=== PATIENT | female | born 1955 | race Caucasian/White ===

== ENCOUNTER 2019-12-11 09:01 | Emergency (ER) | payer BC, SELFPAY ==
[2019-12-11 09:17] VITALS: BP 138/77; PULSE 85; RESP 20; TEMP 36.6; O2SAT 98
--- NOTE | 2019-12-11 09:29 | PC.NURSE ---
is unable to give ua spec. at this time. is drinking water.
--- NOTE | 2019-12-11 09:40 | ED.FEMALEGU ---
HPI - Female Genitourinary General Chief complaint: Urogenital-Female Stated complaint: uti Time Seen by Provider: 12/11/19 09:40 Source: patient Mode of arrival: ambulatory Limitations: no limitations History of Present Illness HPI Narrative: Kristy Parsons is a 64 yo female with a PMH of HTN, depression, diabetes, GERD, who comes to express care with symptoms of dysuria- frequency, small amounts, suprapubic pain. Started earlier this week. She is diabetic and is less willing to check blood sugar regularly since she has decided that she wants to be able to enjoy her life last A1c is slightly over 7 but she states that she is comfortable that. Quit smoking 35 years ago only occasionally drinks alcohol. Related Data Home Medications Medication Instructions Recorded Confirmed duloxetine mg PO 12/11/19 losartan-hydrochlorothiazide tablet 12/11/19 metformin mg PO 12/11/19 metoprolol succinate PO 12/11/19 omeprazole 12/11/19 Allergies Allergy/AdvReac Type Severity Reaction Status Date / Time No Known Allergies Allergy Unverified 01/09/13 11:24 Review of Systems Review of Systems: Narrative: CONSTITUTIONAL: Denies fever, chills, sweats. EYES: Denies visual changes, redness, discharge. ENT: Denies rhinorrhea, congestion, sore throat, otalgia. CARDIOVASCULAR: Denies chest pain, palpitations, edema. RESPIRATORY: Denies dyspnea, wheezing, cough GASTROINTESTINAL: Denies abdominal pain, nausea, vomiting, diarrhea. GENITOURINARY: Has dysuria, states possible hematuria, no abnormal discharge SKIN: Denies rash or itching. NEUROLOGIC: Denies numbness, or focal weakness. PSYCHIATRIC: Denies anxiety or depression. [facility] Family History Family History Father Carcinoma of colon Family history of diabetes mellitus in first degree relative Family history of heart disease in male family member before age 55 Mother Carcinoma of colon Family history of heart disease in male family member before age 55 Sibling Carcinoma of colon Other Cerebrovascular accident Diabetes mellitus Family history of cardiovascular disease Family history of hemochromatosis Hypertension Social History Social History (Updated 12/11/19 @ 09:42 by Iveth Rocha CNP) Smoking status: Former smoker Alcohol intake: current Comments At time of signature, I agree with nursing past medical, surgical, social and family history. There is no relevant family history pertinent to the presenting complaint. Exam Narrative: Exam Narrative: GENERAL: This is a well-nourished, well-developed patient, in mild distress. HEAD: normocephalic, atraumatic. EYES: Sclera clear/white. Vision is grossly intact. EARS: External ears normal, Hearing grossly intact. NOSE: External nose normal without nasal discharge, nares without redness, no rhinorrhea. THROAT: Mucous membranes moist, NECK: Neck supple, non-tender CARDIOVASCULAR: Regular rate and rhythm without murmurs, gallops, or rubs. RESPIRATORY: Clear to auscultation. Breath sounds equal bilaterally. No wheezes, rales, or rhonchi. GASTROINTESTINAL: Abdomen soft, ,mild suprapubic pain SKIN: warm, intact with no suspicious lesions or rash, good texture and turgor. NEURO: awake, alert, and oriented to person, place and time. There were no obvious focal neurologic abnormalities. Steady gait EXTREMITIES: Normal range of motion. BACK: Nontender without deformity Course Course Emergency Course: UA-positive for leukocyte esterase and nitrites-started on Keflex 500 mg twice daily x5 days Discussed blood sugar control and symptoms of dysuria encouraged her to increase water intake and monitor blood pressure blood sugar Follow-up with PCP Vital Signs Vital signs: Vital Signs Temperature 97.8 F 12/11/19 09:17 Pulse Rate 85 12/11/19 09:17 Respiratory Rate 20 12/11/19 09:17 Blood Pressure 138/77 12/11/19 09:17 Pulse Oximetry 98
== END 2019-12-11 10:08 | disposition home or self-care (01) ==
PROVIDERS: Emergency Provider Nurse Practitioner; PCP Family Medicine
DX: N30.01 Acute cystitis with hematuria (principal); I10 Essential (primary) hypertension; E11.9 Type 2 diabetes mellitus without complications; K21.9 Gastro-esophageal reflux disease without esophagitis; Z79.84 Long term (current) use of oral hypoglycemic drugs; Z87.891 Personal history of nicotine dependence
CPT/HCPCS: 81003; 87077; 87086; 87088; 87186; 99213; G0463; J1100

== ENCOUNTER 2024-09-24 00:43 | Day surgery (SDC) | payer MEDICARE, SELFPAY ==
[2024-09-22 12:50] VITALS: BMI 34.3
--- OUTSIDE RECORDS SUMMARY | 2024-09-24 00:45 | XMS_ITS | Clinical Summary ---
Author Organization [facility] Address [facility] [place] [address] Care Team Providers Care Station Manager Name Role Phone Kalpesh Larson MD Primary Care Provider [phone] Allergies No known active allergies Medications omeprazole (PRILOSEC) 20 MG capsule Take 20 mg by mouth daily. Active valACYclovir (VALTREX) 1 g tablet Take 1 tablet by mouth as needed. Active metoprolol succinate ER (TOPROL-XL) 50 MG 24 hr tablet Take 1 tablet by mouth daily. Active metFORMIN ER, MOD, (GLUMETZA) 1000 MG 24 hr tablet Take 1,000 mg by mouth daily. Active losartan-hydroC HLOROthiazide (HYZAAR) 50-12.5 MG tablet Take 1 tablet by mouth daily. Active DULoxetine (CYMBALTA) 60 MG capsule Take 60 mg by mouth daily. Active butalbital-acet aminophen-caffe ine (ESGIC) 50-325-40 MG tablet Take 1 tablet by mouth as needed. Active HYDROcodone-steffen taminophen (NORCO) 5-325 MG tabletIndicatio ns:Chronic Pain Take 1 tablet by mouth every 6 (six) hours as needed. Indications: Chronic Pain 30 tablet 04/13/2022 Active Encounters Date Type Department Care Team Description 08/13/2024 9:28 AM SENIOR MAJOR GIFTS OFFICER - 08/13/2024 11:59 PM SENIOR MAJOR GIFTS OFFICER Hospital Encounter [facility] [place] [address] Miroslava Larson MD Discharge Disposition: Home or Self Care (Routine Discharge) 08/13/2024 Travel from Last 3 Months Family History Medical History Relation Comments No Known Problems Father Cancer Mother colon Hypertension Mother Cancer Sister colon Relation Status Comments Father Mother Sister Social History Tobacco Use Types Packs/Day Years Used Date Smoking Tobacco: Former Cigarettes Q uit: 1985 Smokeless Tobacco: Never Alcohol Use Standard Drinks/Week Comments Yes 0 (1 standard drink = 0.6 oz pur e alcohol) 1-2 per year Comments No Sex and Gender Information Value Date Recorded Sex Assigned at Female 08/13/2024 9:26 AM SENIOR MAJOR GIFTS OFFICER Legal Sex Female 9:58 PM CDT Gender Identity Not on file Sexual Orientation Not on file Last Filed Vital Signs Vital Sign Reading Time Taken Comments Blood Pressure 142/82 04/13/2022 10:30 AM CDT Pulse 105 04/13/2022 10:30 AM CDT Temperature 36.6 C (97.9 F) 04/13/2022 10:30 AM CDT Respiratory Rate 16 04/13/2022 10:30 AM CDT Oxygen Saturation 96% 04/13/2022 10:30 AM CDT Inhaled Oxygen Concentration - - Weight 90.8 kg (200 lb 2.8 oz) 04/13/2022 6:15 A M CDT Height 165.1 cm (5' 5 ) 04/13/2022 6:15 AM CDT Body Mass Index 33.31 04/13/2022 6:15 AM CDT Plan of Treatment Health Maintenance Due Date Last Done Comments Colorectal Cancer Screening Colonoscopy (10 Years) 1957 Hepatitis C 1975 DTaP, Tdap and Td Vaccines (1 - Tdap) 1976 Zoster Vaccines (1 of 2) 2007 Annual Medicare Wellness Visit 2022 COVID-19 Vaccine (3 - season) 2024 09/30/2020, 09/09/2020 Mammogram Screening 08/13/2026 08/13/2024, 07/23/2023, 06/06/2023, Additional history exists RSV Immunization or 60+ Years (1 - 1-dose 75+ series) 2032 Pneumococcal Vaccine: 65+ Years Completed 03/19/2024 Dexa Scan (General) Completed 08/13/2024 Meningococcal B Vaccine Aged Out No l onger eligible based on patient's age to complete this topic Meningococcal Vaccine Aged Out No gael tita eligible based on patient's age to complete this topic RSV Immunizations Under 20 Months Aged Out No longer eligible based on patient's age to complete this topic Procedures Procedure Name Priority Date/Time Associated Diagnosis Comments BONE DENSITY/DEXA Routine 08/13/2024 10: 16 AM SENIOR MAJOR G[employer]TS OFFICER Asymptomatic menopausal state MG SCREENING W RYAN LESLIE DIGI Routine 08/13/2024 10:14 AM SENIOR MAJOR GIFTS OFFICER Encounter for screening mammogram for malignant neoplasm of breast from Last 3 Months Results * BONE DENSITY/DEXA (08/13/2024 10:16 AM SENIOR MAJOR GIFTS OFFICER) Anatomical Region Laterality Modality Bone Mammography 08/13/2024 10:2 5 AM SENIOR MAJOR GIFTS OFFICER Impressions 08/13/2024 10:25 AM SENIOR MAJOR GIFTS OFFICER IMPRESSION: WHO Classification: Normal. RECOMMENDATIONS: All patients should ensure an adequate intake of dietary calcium and vitamin D. The NOF recommend adults under the age of 50 need 1000 mg of calcium and 400-800 IU of vitamin D daily. Effective therapy for the prevention and treatment of osteoporosis include bisphosphonates. FOLLOW-UP: People with diagnosed cases of osteoporosis or at high risk for fracture should have regular bone mineral density test. For patients eligible for Medicare, routine testing is allowed once every 2 years. Testing frequency can be increased to one year for patients who have rapidly progressing disease, those who are receiving or discontinuing medical therapy to restore bone mass, or have additional risk factors. Ordered By: MIROSLAVA LARSON Interpreted By: Ammon Brewer, 08/13/2024 10:25 AM Narrative 08/13/2024 10:25 AM SENIOR MAJOR GIFTS OFFICER [facility] [address] [place] [address] EXAMINATION: BONE DENSITY/DEXA INDICATIONS: Asymptomatic menopausal state COMPARISON: None TECHNIQUE: DEXA bone mineral density evaluation was performed in the AP projection over the lumbar spine and both hips utilizing standard imaging techniques. FINDINGS: The BMD measured at the AP spine L1-L4 is 1.099 g/cm? with a T-score of 0.5. The BMD measured at the left femoral neck is 0.748 g/cm? with a T-score of -0.9. The BMD measured at the left hip is 1.053 g/cm? with a T-score of 0.9. The BMD measured at the right femoral neck is 0.772 g/cm? with a T-score of - 0.7. The BMD measured at the right hip is 0.006 g/cm? with a T-score of 0.5. FRAX 10-year fracture risk: Major Osteoporotic Fracture: 7.7% Hip Fracture: 0.6% Procedure Note Ammon Brewer MD - 08/13/2024 [facility] [address] [place] [address] EXAMINATION: BONE DENSITY/DEXA INDICATIONS: Asymptomatic menopausal state COMPARISON: None TECHNIQUE: DEXA bone mineral density evaluation was performed in the APprojection over the lumbar spine and both hips utilizing standard imagingtechniques. FINDINGS: The BMD measured at the AP spine L1-L4 is 1.099 g/cm? with a T-score of0.5. The BMD measured at the left femoral neck is 0.748 g/cm? with a T-score of-0.9. The BMD measured at the left hip is 1.053 g/cm? with a T-score of 0.9. The BMD measured at the right femoral neck is 0.772 g/cm? with a T-scoreof -0.7. The BMD measured at the right hip is 0.006 g/cm? with a T-score of 0.5. FRAX 10-year fracture risk: Major Osteoporotic Fracture: 7.7% Hip Fracture: 0.6% IMPRESSION: WHO Classification: Normal. RECOMMENDATIONS: All patients should ensure an adequate intake of dietary calcium andvitamin D. The NOF recommend adults under the age of 50 need 1000 mg ofcalcium and 400-800 IU of vitamin D daily. Effective therapy for theprevention and treatment of osteoporosis include bisphosphonates. FOLLOW-UP: People with diagnosed cases of osteoporosis or at high risk for fractureshould have regular bone mineral density test. For patients eligible forMedicare, routine testing is allowed once every 2 years. Testing frequencycan be increased to one year for patients who have rapidly progressingdisease, those who are receiving or discontinuing medical therapy torestore bone mass, or have additional risk factors. Ordered By: MIROSLAVA LARSON Interpreted By: Ammon Brewer, 08/13/2024 10:25 AM us Miroslava Larson MD DEXA Final Res ult * MG SCREENING W RYAN LESLIE DIGI (08/13/2024 10:14 AM SENIOR MAJOR GIFTS OFFICER) Anatomical Region Laterality Modality Breast Bilateral Mammography 08/13/2024 10:2 6 AM SENIOR MAJOR GIFTS OFFICER Impressions 08/13/2024 10:27 AM SENIOR MAJOR GIFTS OFFICER ===== IMPRESSION: ===== 1. Stable mammographic appearance with no new findings to suggest malignancy in either breast. Assessment: ACR BI-RADS 2 - BENIGN FINDING(S) Recommendation: 1:Routine Screening Bilateral Comments: Ordered By: MIROSLAVA LARSON Interpreted By: Keith Santos MD, 08/13/2024 10:26 AM Narrative 08/13/2024 10:27 AM SENIOR MAJOR GIFTS OFFICER [facility] [address] [place] [address] Examination: Digital bilateral screening mammogram with 3D Tomosynthesis Exam Date/Time: 08/13/2024 9:37 AM Reason For Exam: Screening No prior breast procedures. No personal or family history of breast cancer. No current complaints. Comparison: Mammograms from 07/23/2023 06/06/2023 10/23/2012 Technique: Digital screening mammography of both breasts was performed in addition to 3-D Tomosynthesis technique. This study was read with the assistance of a computer-aided detection system. Tissue density: There are scattered areas of fibroglandular density. Findings: Benign round and punctate calcifications again seen. No suspicious interval change in parenchymal pattern from the prior studies. There is no new focal asymmetry, dominant mass lesion, area of skin thickening, or cluster of suspicious appearing calcifications in either breast to suggest malignancy. us Miroslava Larson MD MAMMO Final Res ult from Last 3 Months Insurance [employer] Care Teams Station Manager Relationship Specialty Start Date End Date Kalpseh Larson MD [facility] [facility] [address] [place] [id number] PCP - General FAMILY PRACTICE 08/13/24
--- OUTSIDE RECORDS SUMMARY | 2024-09-24 00:45 | XMS_ITS | Referral Summary ---
Author Organization [facility] Building Address [address] [place] [phone] Care Team Providers Care Lens Inserter Name Role Phone Seth Land MD Primary Care Provider [phone] Encounters Date Type Department Care Team Description 08/27/2024 ACO Clinical Pharmacist [facility] Accountable Care Organization [address] [place] [id number] Annie Landon sandee 07/09/2024 Telephone [facility] Family Medicine at [address] [place] [phone] Seth Land MD Medical Question/Miscellane ous 07/02/2024 Telephone [facility] Family Medicine at [address] [place] [phone] Seth Land MD 1st no show letter sent 07/02/24 07/01/2024 2:15 PM BUNDLE HELPER Office Visit [facility] Medicine [address] [place] [phone] Kalpesh Choudhary MD Chronic pain of left knee (Primary Dx); Chronic pain of right knee from Last 3 Months Allergies Active Allergy Reactions Criticality Noted Date Comments Nickel Itching Low 12/24/2018 Medications losartan-hydroCHL OROthiazide (HYZAAR) 50-12.5 mg per tablet Take 1 tablet by mouth daily Active butalbital-acetam inophen-caffeine (ESGIC) 50-325-40 mg per tablet butalbital-steffen taminophen-caf feine 50 mg-325 mg-40 mg tablet 1-2 tabs po Q6 hours as needed Active metoprolol XL (TOPROL-XL) 50 mg 24 hr tablet metoprolol succinate ER 50 mg tablet,extende d release 24 hr Active empagliflozin (JARDIANCE) 25 mg tabletIndications :Uncontrolled type 2 diabetes mellitus with hypoglycemia without coma (HCC) Take 1 tablet (25 mg total) by mouth daily 90 tablet [address] (CYMBALTA) 60 mg capsuleIndication s:Moderate episode of recurrent major depressive disorder (HCC) Take 1 capsule (60 mg total) by mouth daily 90 capsule 4 Active ALPRAZolam (XANAX) 0.5 mg tabletIndications :Moderate episode of recurrent major depressive disorder (HCC) Take 1 tablet (0.5 mg total) by mouth nightly as needed for anxiety 30 tablet 4 Active simvastatin (ZOCOR) 20 mg tabletIndications :Dyslipidemia Take 1 tablet (20 mg total) by mouth nightly 90 tablet 3 4 03/19/20 25 Active glyBURIDE (DIABETA) 5 mg tabletIndications :Uncontrolled type 2 diabetes mellitus with hypoglycemia without coma (HCC) Take 2 tablets (10 mg total) by mouth daily with breakfast 2 tablets daily 180 tablet 1 4 Active omeprazole (PriLOSEC) 20 mg capsule Take 1 capsule (20 mg total) by mouth daily 90 capsule 1 4 Active calcium carbonate (CALCIUM 600 ORAL) Take by mouth Active Bifidobacterium infantis (ALIGN) 4 mg capsule 1 capsule (4 mg total) Active magnesium oxide 400 mg magnesium capsule Take by mouth Active potassium gluconate 600 mg (99 mg) tablet Take by mouth A ctive cinnamon bark (CINNAMON ORAL) Take by mouth Active SITagliptin phosphate (JANUVIA) 100 mg tabletIndications :type 2 diabetes mellitus Take 1 tablet (100 mg total) by mouth daily Active meloxicam (MOBIC) 15 mg tabletIndications :Chronic pain of right knee Take 1 tablet (15 mg total) by mouth daily 30 tablet 3 4 Active Active Problems Problem Noted Date Diagnosed Date Medicare annual wellness visit, subsequent 03/19 Assessment & Plan (03/19/2024 5:30 PM CDT): Patient here for annual Medicare wellness visit and for review of complete medical problem list. All the elements of the plan were completed as outlined by CMS. A copy of the prevention plan was given to the patient. I reviewed Medicare Wellness Questionnaire (other physicians involved in care, depression screen, advanced directives), cognitive/memory, and functional assessment. Forms scanned in progress notes. I reviewed and updated the complete problem list, medication list, family history, and immunization records with the patient. I provided preventive counseling and early detection interventions to the patient through health maintenance update and summary of today's office visit. Personalized Prevention Plan Services (PPPS): Opioid Use: No Immunization: [id number]: Not Applicable. [id number]: Not Applicable. PCV20: UTD - Done on 03/19/24 Influenza: Highly Recommended HepatitisB: Not Applicable. Tetanus: Highly Recommended Shingles: Highly Recommended RSV: Highly Recommended Cancer Screening: Mammogram: Not Applicable. PAP Smear: Not Applicable. Prostate Cancer Screening: Not Applicable. Colorectal Cancer Screening: UTD - Done on 2022 at [facility] Lung Cancer Screening: Not Applicable. Others: Diet: Lifestyle education regarding diet discussed. Exercise: Encouraged regular daily exercise. Medication Use: Aspirin use discussion. DEXA Scan: Not Applicable. Glaucoma Screening: Recommended Annually. Audio Screen ordered? No Diabetes: Not Applicable. Annual Labs: Ordered For Today. Abdominal Aortic Aneurysm Screening: Not Applicable. HIV Screening: Not Applicable. Smoking cessation Counselling: Not Applicable. 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 Follow up in 1 or 3 months for continuing Lifestyle Medicine education and management visit. Recommend Lifestyle/Nutrition/Weight Loss Seminar on every other Tuesdays @ 5pm. Adhesive capsulitis of right shoulder 03/19/2024 Overview (03/19/2024): Chronic Uncontrolled. Recommend PT-pt refused. COnsider ORtho for Injection Primary osteoarthritis of left knee 10/21/2019 Anxiety 08/26/2019 Arthritis 08/26/2019 Depressive disorder 08/26/2019 Disorder of bursae of shoulder region 08/26/2019 Essential hypertension 08/26/2019 Gastroesophageal reflux disease 08/26/2019 Headache 08/26/2019 Repetitive strain injury 08/26/2019 Thumb pain 08/26/2019 Uncontrolled type 2 diabetes mellitus with hyper glycemia 08/26/2019 Assessment & Plan (03/19/2024 5:34 PM CDT): Chronic. Current Medications: Jardiance and Glyburide. Uncontrolled due to refusal of Treatments. Patient can't tolerate metformin due GI Side effects. Patient refused to take insulin at any concerns. Januvia was too expensive, patient's insurance doesn't cover. Patient's insurance doesn't cover ozempic either. Patient doesn't want to change her diet. Recommend blood work as ordered. Will assess treatment option in future. Recommend Global Logistics Manager. Wax in ear 08/26/2019 Chronic pain of both knees 12/17/2018 Resolved Problems Problem Noted Date Diagnosed Date Resolved Date Diabetes mellitus 08/26/2019 03/19/2024 Immunizations Immunization Administration Dates Next Due Influenza, Quad, Adjuvantate d, Intramuscular 04/17/2023 Influenza, Quadrivalent, Bonnie l Culture-based MDCK, Preservative Free, Antibiotic Free, Intramuscular 03/21/2020 Influenza, Quadrivalent, Hig h Dose, Preservative Free, Intrr 05/03/2022 Influenza, Quadrivalent, Spl it, Preservative Free, Intramuscular 03/23/2021 Influenza, Unspecified 03/19/2024(Deferred: Dominique ent Refused) Pneumococcal Conjugate Pcv20 03/19/2024 Social History Tobacco Use Types Packs/Day Years Used Date Smoking Tobacco: Former Smokeless Tobacco: Never Alcohol Use Standard Drinks/Week Comments Yes 0 (1 standard drink = 0.6 oz pur e alcohol) AUDIT-C Answer Date Recorded Q1: How often do you have a drink containing alc ohol? Monthly or less 03/19/2024 Q2: How many drinks containi ng alcohol do you have on a typical day when you are drinking? 1 or 2 03/19/2024 Q3: How often do you have si x or more drinks on one occasion? 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 file Not on file Not on f ile Last Filed Vital Signs Vital Sign Reading Time Taken Comments Blood Pressure 116/70 03/19/2024 9:03 AM CDT Pulse 66 03/19/2024 9:03 AM CDT Temperature 36.6 C (97.9 F) 11/25/2012 5:06 AM CDT Respiratory Rate 16 03/19/2024 9:03 AM CDT Oxygen Saturation 96% 03/19/2024 9:03 AM CDT Inhaled Oxygen Concentration - - Weight 87.1 kg (192 lb) 07/01/2024 2:08 PM BUNDLE HELPER Height 165.1 cm (5' 5 ) 07/01/2024 2:08 PM BUNDLE HELPER Body Mass Index 31.95 07/01/2024 2:08 PM BUNDLE HELPER Plan of Treatment Not on file Procedures Procedure Name Priority Date/Time Associated Diagnosis Comments ALBUMIN CREATININE RATIO, URINE Routine 03/23/2024 9:09 AM CDT Uncontrolled type 2 diabetes mellitus with hypoglycemia without coma (HCC) HEPATITIS C ANTIBODY Routine 03/23/2024 8:57 AM CDT Need for hepatitis C screening test EGFR Routine 03/23/2024 8:57 AM CDT Uncontrolled type 2 diabetes mellitus with hypoglycemia without coma (HCC) HEMOGLOBIN A1C Routine 03/23/2024 8:57 AM CDT Uncontrolled type 2 diabetes mellitus with hypoglycemia without coma (HCC) LIPID PANEL Routine 03/23/2024 8:57 AM CDT Medicare annual wellness visit, subsequent from Last 3 Months or Most Recently Relevant to Health Maintenance Results * Albumin Creatinine Ratio, Urine (03/23/2024 9:09 AM CDT) Albumin Ur <12.0 mg/L Comment: Interpretive Data No reference range established. Current interpretive data was last revised 2018. Creatinine Ur 58.3 mg/dL [facility] Comment: Interpretive Data No reference range established. Current interpretive data was last revised 2018. Albumin Creatinine Ratio, Ur <21 1 - 29 mg/g [facility] Urine 03/23/2024 9:09 AM CDT 03/23/2024 12:47 PM CDT us Seth Land MD LAB URINE ORDERABLES Final Resul t [facility] [address] [facility] Department [place] [address] * eGFR (03/23/2024 8:57 AM CDT) eGFR >90 >=60 mL/min/1. 73 m2 Comment: Interpretive Data Reference Interval Normal >/= 90 mL/min/1.73m2 Mildly decreased* 60 - 89 mL/min/1.73m2 Mildly to moderately decreased 45 - 59 mL/min/1.73m2 Moderately to severely decreased 30 - 44 mL/min/1.73m2 Severely decreased 15 - 29 mL/min/1.73m2 Kidney Failure < 15 mL/min/1.73m2 *Relative to young adult level Estimated glomerular filtration rate is determined by the 2020 CKD-EPI equation recommended by the National Kidney Foundation (A Unifying Approach to GFR Estimation: Recommendations of the NKF-ASK Task Force on Reassessing the Inclusion of Race in Diagnosing Kidney Disease, JASN 2020). The CKD-EPI equation should not be used for patients with unstable renal function and has not been validated in children and those over 70. Current interpretive data was last reviewed 2021. Blood 03/23/2024 8:57 AM CDT 03/23/2024 12:52 PM CDT Seth Land MD LAB BLOOD ORDERABLES Final Resul t Performing Organization Address City/[facility] Co de Phone Number [id number] [address] * Hepatitis C antibody Blood (03/23/2024 8:57 AM CDT) Pathologist [facility] Hep C Ab Nonreactive Nonreactive Comment: Antibodies to HCV not detected. Does NOT exclude the possibility of recent exposure to HCV. Current interpretive data was last revised on 22 Interpretive Data Nonreactive: Antibodies to HCV not detected. Does NOT exclude the possibility of recent exposure to HCV. Equivocal: Equivocal for HCV antibodies. Supplemental molecular testing will be automatically performed to determine infection status in accordance with current CDC screening recommendations. Reactive: Positive for HCV antibodies. This may represent current or past HCV infection. Supplemental molecular testing will be automatically performed to determine current infection status in accordance with current CDC screening recommendations. Interpretive data was last revised on 2019. Blood 03/23/2024 8:57 AM CDT 03/23/2024 12:52 PM CDT Seth Land MD LAB MICROBIOLOGY - GENERAL ORDER HANS Final Result Performing Organization Address [facility] de Phone Number [id number] [address] * (ABNORMAL) Hemoglobin A1c (03/23/2024 8:57 AM CDT) [facility] Hgb A1C 11.9(H) 4.0 - 5.6 % Estimated Average Glucose 295 mg/dL [facility] Comment: The ADA recommends reporting an estimated Average Glucose (eAG) with all Hemoglobin A1c results using the equation derived from a study of 507 normal and diabetic adults. Minority populations were underrepresented and children were not included. (Diabetes Care 31:0926-0383, 2008). The eAG is not equivalent to a fasting glucose. Blood 03/23/2024 8:57 AM CDT 03/23/2024 12:49 PM CDT us Seth Land MD LAB BLOOD ORDERABLES Final Resul t [facility] [address] [facility] Department [place] [address] * (ABNORMAL) Lipid panel (03/23/2024 8:57 AM CDT) Cholesterol 196 30 - 199 mg/dL Comment: Interpretive Data Ages < or = 19 years Acceptable: <170 mg/dL Borderline high: 170-199 mg/dL High: >or= 200 mg/dL Ages > or = 20 years Desirable: <200 mg/dL Borderline high: 200-239 mg/dL High: >or= 240 mg/dL Literature References: 1. Expert Panel on Integrated Guidelines for Cardiovascular Health and Risk Reduction in Children and Adolescents. Pediatrics 2011;128:S213 2. NCEP Expert Panel. Circulation 2004;110:227 Current Interpretive Data was last revised on 2018. Triglycerides 173(H) <=149 mg/dL [facility] Comment: Interpretive Data Ages < or = 9 years Acceptable: <75 mg/dL Borderline high: 75-99 mg/dL High: >or= 100 mg/dL Ages 10 to 20 years Acceptable: <90 mg/dL Borderline high: 90-129 mg/dL High: >or= 130 mg/dL Ages > or = 20 years Desirable: <150 mg/dL Borderline high: 150-199 mg/dL High: 200-499 mg/dL Very high: >or= 499 mg/dL Literature References: 1. Expert Panel on Integrated Guidelines for Cardiovascular Health and Risk Reduction in Children and Adolescents. Pediatrics 2011;128:S213 2. NCEP Expert Panel. Circulation 2004;110:227 Current Interpretive Data was last revised on 2018. HDL 39(L) >=40 mg/dL [facility] Comment: Interpretive Data Ages < or = 19 years Acceptable: >45 mg/dL Borderline low: 40-45 mg/dL Low: <40 mg/dL Ages > or = 20 years Desirable: >or= 60 mg/dL Low: <40 mg/dL Literature References: 1. Expert Panel on Integrated Guidelines for Cardiovascular Health and Risk Reduction in Children and Adolescents. Pediatrics 2011;128:S213 2. NCEP Expert Panel. Circulation 2004;110:227 Current Interpretive Data was last revised on 2018. LDL, calculated 126 <=129 mg/dL [facility] Comment: Interpretive Data Ages < or = 19 years Acceptable: <110 mg/dL Borderline high: 110-129 mg/dL High: >or= 130 mg/dL Ages > or = 20 years Optimal: <100 mg/dL Near optimal: 100-129 mg/dL Borderline high: 130-159 mg/dL High: >160 mg/dL Calculated using the Cristobal LDL-C estimating equation. This equation was implemented on 2024. Prior to this date LDL-C was estimated using the Friedewald equation. Literature References: 1. Expert Panel on Integrated Guidelines for Cardiovascular Health and Risk Reduction in Children and Adolescents. Pediatrics 2011;128:S213 2. NCEP Expert Panel. Circulation 2004;110:227 3. Cristobal Thompson et al. ROLAND Cardiol. 2019October 15;5(5):540-548. doi: 10.1001/[email or web address] Current Interpretive Data was last revised on 2024. Non-HDL Cholesterol 157 mg/dL [facility] Comment: Interpretive Data Ages < or = 19 years Acceptable: <120 mg/dL Borderline high: 120-144 mg/dL High: >145 mg/dL Ages > or = 20 years When triglycerides are >200 mg/dL, Non-HDL cholesterol is a secondary target of therapy with treatment goals that are 30 mg/dL greater than the LDL cholesterol target. Literature References: 1. Expert Panel on Integrated Guidelines for Cardiovascular Health and Risk Reduction in Children and Adolescents. Pediatrics 2011;128:S213 2. NCEP Expert Panel. Circulation 2004;110:227 Current Interpretive Data was last revised on 2018. Chol/HDL ratio 5 [facility] Blood 03/23/2024 8:57 AM CDT 03/23/2024 12:52 PM CDT us Seth Land MD LAB BLOOD ORDERABLES Final Resul t [facility] [address] [facility] Department [place] [address] from Last 3 Months or Most Recently Relevant to Health Maintenance Insurance [employer] CHO[employer] MEDICARE PPO Advance Directives For more information, please contact: [phone] Documents on File Type Date Recorded Patient Asbestos Abatement Technician Expl anation ADVANCE DIRECTIVE 12/22/2012 12:00 AM POWER OF PIPE RACKER FINANCIAL/MEDICAL Care Teams Lens Inserter Relationship Specialty Start Date End Date Seth Land MD [address] [facility] [place] [id number] PCP - General Family Medicine 03/19/24
--- OUTSIDE RECORDS SUMMARY | 2024-09-24 00:45 | XMS_ITS | Clinical Summary ---
Author Organization [facility] Address [address] [place] [phone] Care Team Providers Care Curtain Framer Name Role Phone Seth Land MD Primary Care Provider [phone] Allergies Active Allergy Reactions Criticality Noted Date [...] Plan Services (PPPS): Opioid Use: No Immunization: [id number]: Not Applicable. [id number]: Not Applicable. PCV20: UTD - Done on [...] Will assess treatment option in future. Recommend Supervisor Lathing. Wax in ear 08/26/2019 Chronic pain of both knees 12/17/2018 Resolved Problems Problem Noted Date Diagnosed Date Resolved Date Diabetes mellitus 08/26/2019 03/19/2024 Encounters Date Type Department Care Team Description 08/27/2024 ACO Clinical Pharmacist [facility] Accountable Care Organization [address] [place] [id number] Annie Landon RPh 07/09/2024 Telephone [facility] Family Medicine at [address] [place] [address] Seth Land MD Medical Question/Miscellane ous 07/02/2024 Telephone [facility] Family Medicine at [address] [place] [address] Seth Land MD 1st no show letter sent 07/02/24 07/01/2024 2:15 PM MACHINE CLOTHING MAN Office Visit [facility] Medical [facility] [address] [place] [address] [address] [place] [address] Kalpesh Choudhary MD Chronic pain of left knee (Primary Dx); Chronic pain of right knee from Last 3 Months Immunizations Immunization Administration Dates Next Due Influenza, Quad, Adjuvantate d, Intramuscular 04/17/2023 Influenza, Quadrivalent, Bonnie l Culture-based MDCK, Preservative Free, Antibiotic Free, Intramuscular 03/21/2020 Influenza, Quadrivalent, Hig h Dose, Preservative Free, Intrr 05/03/2022 Influenza, Quadrivalent, Spl it, Preservative Free, Intramuscular 03/23/2021 Influenza, Unspecified 03/19/2024(Deferred: Dominique ent Refused) Pneumococcal Conjugate Pcv20 03/19/2024 Surgical History Surgery Date Site/Laterality Comments CARPAL TUNNEL RELEASE HEEL SPUR SURGERY SECTION TUBAL LIGATION Medical History Medical History Date Comments Diabetes mellitus (HCC) Peripheral neuropathy Depression Gastric reflux Hypertension Migraines Peptic ulceration Family History Medical History Relation Name Comments Heart disease Father Arthritis Mother Cancer Mother Deep vein thrombosis Mother Stroke Mother Relation Name Status Comments Father Mother Social History Tobacco Use Types Packs/Day Years [...] on file Legal Sex Female 8:34 PM MACHINE CLOTHING MAN Gender Identity Not on file Sexual Orientation Not on file 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 on file Not on f ile Obstetrics History Last Filed Vital Signs Vital Sign Reading Time Taken Comments Blood Pressure 116/70 03/19/2024 9:03 AM CDT Pulse 66 03/19/2024 9:03 AM CDT Temperature 36.6 C (97.9 F) 11/25/2012 5:06 AM CDT Respiratory Rate 16 03/19/2024 9:03 AM CDT Oxygen Saturation 96% 03/19/2024 9:03 AM CDT Inhaled Oxygen Concentration - - Weight 87.1 kg (192 lb) 07/01/2024 2:08 PM MACHINE CLOTHING MAN Height 165.1 cm (5' 5 ) 07/01/2024 2:08 PM MACHINE CLOTHING MAN Body Mass Index 31.95 07/01/2024 2:08 PM MACHINE CLOTHING MAN Plan of Treatment Health Maintenance Due Date Last Done Comments Colon Cancer Screening-Colonoscopy 1957 Osteoporosis Screening-Bone Density Scan 1957 Dilated Eye Exam 1957 Foot Exam 1957 DTaP/Tdap/Td Vaccine (1 - Tdap) 1968 Hepatitis B Screening 1975 Zoster Vaccine (1 of 2) 2007 Covid-19 Vaccine (3 - 2023-2 5 season) 2024 09/30/2020, 09/09/2020 Breast Cancer Screening-Mammogram 06/06/2024 06/06/2023, 10/23/2012, 11/26/2011 Hemoglobin A1C 09/21/2024 03/23/2024 Influenza Vaccine (Season Ended) 2025 04/17/2023, 05/03/2022, 03/23/2021, Additional history exists Depression Screening 03/19/2025 03/19/2024 Fall Risk Assessment 03/19/2025 03/19/2024 Well Visit 65+ 03/19/2025 03/19/2024 Albumin Creatinine Ratio, Urine 03/23/2025 Lipid Panel 03/23/2025 03/23/2024, 11/20/2012 eGFR 03/23/2025 03/23/2024 Pneumococcal vaccine 65+ Completed 03/19/2024 Hepatitis C Screening Completed 03/23/2024 Procedures Procedure Name Priority Date/Time Associated Diagnosis [...] revised 2018. Creatinine Ur 58.3 mg/dL BIANKA Comment: Interpretive Data No reference range established. Current interpretive data was last revised 2018. Albumin Creatinine Ratio, Ur <21 1 - 29 mg/g [facility] Urine 03/23/2024 9:09 AM CDT 03/23/2024 12:47 PM CDT Seth Land MD LAB URINE ORDERABLES Final Resul t Performing Organization Address City/[facility] Co de Phone Number BIANKA [address] [place] [address] * eGFR (03/23/2024 8:57 AM CDT) eGFR [...] ORDERABLES Final Resul t Performing Organization Address City/[facility]/ZIP Co de Phone Number [id number] [place] [address] * Hepatitis C antibody Blood (03/23/2024 8:57 AM CDT) Pathologist [facility] Hep C Ab Nonreactive Nonreactive Comment: Antibodies [...] ORDER HANS Final Result Performing Organization Address [facility] de Phone Number [facility] [address] [facility] [place], [place] [id number] * (ABNORMAL) Hemoglobin A1c (03/23/2024 8:57 AM CDT) Hgb A1C 11.9(H) 4.0 - 5.6 % Estimated Average Glucose 295 mg/dL BIANK[facility] Comment: The ADA recommends reporting an estimated Average Glucose (eAG) with all Hemoglobin A1c results using the equation derived from a study of 507 normal and diabetic adults. Minority populations were underrepresented and children were not included. (Diabetes Care 31:8512-0941, 2008). The eAG is not equivalent to a fasting glucose. Blood 03/23/2024 8:57 AM CDT 03/23/2024 12:49 PM CDT Seth Land MD LAB BLOOD ORDERABLES Final Resul t Performing Organization Address City/[facility] Phone Number [facility] [address] [employer] [place] [address] * (ABNORMAL) Lipid panel (03/23/2024 8:57 AM [...] 2018. LDL, calculated 126 <=129 mg/dL BIANKA Comment: Interpretive Data Ages < or = 19 years Acceptable: <110 mg/dL Borderline high: 110-129 mg/dL High: >or= 130 mg/dL Ages > or = 20 years Optimal: <100 mg/dL Near optimal: 100-129 mg/dL Borderline high: 130-159 mg/dL High: >160 mg/dL Calculated using the Jain LDL-C estimating equation. This equation was implemented [...] BLOOD ORDERABLES Final Resul t [facility]ANKA NESS [id number] [facility] Department [place] [address] from Last 3 Months or Most Recently Relevant to Health Maintenance Insurance [employer] MEDIC[employer] PPO Advance Directives For more information, please contact: [phone] Documents on File Type Date Recorded Patient Pc Installation Engineer Expl anation ADVANCE DIRECTIVE 12/22/2012 12:00 AM POWER OF EQUIPMENT MAINTENANCE TECHNICIAN FINANCIAL/MEDICAL Care Teams Curtain Framer Relationship Specialty Start Date End Date Seth Land MD [address] [place] [address] PCP - General Family Medicine 03/19/24
--- OUTSIDE RECORDS SUMMARY | 2024-09-24 00:45 | XMS_ITS | Clinical Summary ---
Author Organization 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 Gender Identity Not on file Sexual Orientation Not on file Plan of Treatment Health Maintenance Due Date Last Done Comments DTAP/TDAP/TD VACCINES (1 - Tdap) 1976 COLORECTAL SCREENING 2002 Colorectal Cancer Screening 2002 FIT-DNA Q 3 years 2002 FIT/FOBT Q 1 year 2002 Flex Sig/CT Colonography Q 5 years 2002 PNEUMOCOCCAL VACCINE 50+ YEA RS (1 of 1 - PCV) 2007 ZOSTER VACCINE (1 of 2) 2007 BREAST CANCER SCREENING 10/23/2013 10/23/2012, 11/25 OSTEOPOROSIS SCREENING 2022 INFLUENZA VACCINE (#1) 2024 RSV VACCINE (60+ or ) (1 - 1-dose 75+ series) 2032 Procedures Procedure Name Priority Date/Time Associated Diagnosis Comments MAMMO SCREEN BILAT W OR WO CAD Routine 10/23/2012 2:41 PM CDT Other screening mammogram from Last 3 Months or Most Recently Relevant to Health Maintenance Results * MAMMO DIGITAL SCREEN BILAT (10/23/2012 2:41 PM CDT) Anatomical Region Laterality Modality Breast Bilateral Mammography 10/23/2012 2:27 PM CDT Impressions 10/30/2012 7:37 AM CDT IMPRESSION: Stable screening mammogram Recommend routine followup OVERALL ASSESSMENT: BI-RADS category 1 - Negative Dictated from [facility] Narrative 10/30/2012 7:37 AM CDT BILATERAL SCREENING DIGITAL MAMMOGRAMS WITH COMPUTER ASSISTED DIAGNOSIS 10/23/12 HISTORY: Annual screening study. FINDINGS: Comparison is made to 11/26/11. CAD was utilized. The breast parenchyma has scattered fibroglandular densities. No new dominant masses, suspicious calcifications or areas of parenchymal asymmetry or distortion are identified. Procedure Note Araceli Green MD - 10/30/2012 BILATERAL SCREENING DIGITAL MAMMOGRAMS WITH COMPUTER ASSISTED DIAGNOSIS 10/23/12 HISTORY: Annual screening study. FINDINGS: Comparison is made to 11/26/11. CAD was utilized. The breast parenchyma has scattered fibroglandular densities. No new dominant masses, suspicious calcifications or areas of parenchymal asymmetry or distortion are identified. IMPRESSION IMPRESSION: Stable screening mammogram Recommend routine followup OVERALL ASSESSMENT: BI-RADS category 1 - Negative Dictated from [facility] Spencer Galindo MD MAMMO ORDERABLES Final Result from Last 3 Months or Most Recently Relevant to Health Maintenance Insurance
--- OUTSIDE RECORDS SUMMARY | 2024-09-24 00:46 | XMS_ITS | Data Portability ---
Author Organization [facility], Main Office Address [address] [place] [address] Assessment No assessment recorded. Plan of Treatment Reminders Order Date Submit Date Provider Last Modified By Organization Details Last Modified Time Details Appointments None recorded. Lab glycohemogl obin, total, blood 2023 024 [facility] (Lab), [address] [place], [address], 4 15:14:48 hemoglobin A1C, fingerstick [address], [place], [address], 3 15:29:24 hemoglobin A1C, fingerstick [address], [place], [address], 3 11:00:33 Referral None recorded. Procedures None recorded. Surgeries None recorded. Imaging None recorded. Medication Orders nystatin 100,000 unit/gram topical powder 2023 024 [facility], [address] [facility], [place], [address], 4 11:46:29 omeprazole 20 mg capsule,del ayed release 2023 024 [facility], [address] [facility], [place], [address], 4 11:46:27 Januvia 100 mg tablet 2023 024 [place] [address], [address] [place] [address], [address], 4 11:43:32 Farxiga 10 mg tablet 2023 024 [place] [address], [address] [place] [address], [address], 4 11:45:57 fluconazole 150 mg tablet 2023 024 [place] [address], [address] [place] [address], [address], 4 11:44:32 Elidel 1 % topical cream 2023 024 [place] [address], [address] [place] [address], [address], 4 09:48:02 fluocinonid e 0.05 % topical cream 2023 024 [place] [address], [address] [place] [address], [address], 4 11:46:20 glyburide 5 mg tablet 2022 023 [place] [address], [address] [place] [address], [address], 4 15:50:14 glyburide 5 mg tablet 2022 023 [place] [address], [address] [place] [address], [address], 4 15:50:14 Patient TargetsNo targets recorded. Patient InstructionsNo instructions recorded. Reason for Referral None Reported. Results Created Date Observation Date Name Description Value Unit Range Abnormal Flag Note LastModifiedBy Organization Detail LastModifiedTime 08/07/192023 hemog lobin A1C, yue rstic k HgbA1C 12.9 Not Available [address], [place], [address], 08/07/2022 10:22:49 11/06/19 23 11/05/2022 hemog lobin A1C, andrese rstic k HgbA1C 13.5 Not Available [address], [place], [address], 11/05/2022 10:25:04 02/06/20 23 02/05/2023 hemog lobin A1C, yue rstic k HgbA1C 9.7 Not Available [address], [place], [address], 02/05/2023 10:15:40 Result Notes None recorded. Problems Name Problem SNOMED Code Status Onset Date Resolution Date Notes Provider Name and Address Organization Details Recorded Time Gastroesophag eal reflux disease 201522179 Active Not Available formerly [facility] 3 07:44:20 Headache 54254877 Active Not Available formerly [facility] 3 07:44:20 Wax in ear canal 294370093 Active Not Available formerly [facility] 3 07:44:20 Pain in thumb 307673524 Active Not Available formerly [facility] 3 07:44:20 Type 2 diabetes mellitus without complication 987132140 Active Not Available formerly [facility] 3 07:44:20 Depressive disorder 00305938 Active Not Available [facility] 3 07:44:20 Arthritis 7083211 Active Not Available formerly [facility] 3 07:44:20 Anxiety 05290384 Active Not Available [facility] 3 07:44:20 Disorder of bursa of shoulder region 26022484 Active Not Available formerly [facility] 3 07:44:20 Essential hypertension 24372874 Active Not Available formerly [facility] 3 07:44:20 Diabetes mellitus 07487262 Active Not Available formerly [facility] 3 07:44:20 Candidiasis of skin 63989445 Active 2023 MAYDA Yip [address] [facility] [address], [place], [address] , [facility] [employer] [facility] 4 11:45:54 Eczema 79615412 Active 2023 MAYDA Yip [address], [facility] [address], [place], [address] , [facility] [employer] [facility] 4 11:49:21 Problem Notes None recorded. Procedures Surgical History Date Name Laterality Status Provider Name and Address Organization Details Recorded Time 8 Colonoscopy completed Not Available formerly [facility] 08/16/19 23 07:41:31 Imaging Results None recorded. Procedure Notes None recorded. Medical Equipment None Reported. Allergies No known drug allergies Medications Name Sig Start Date Stop Date Status Note LastModified by Organization Details LastModified Time Prescript ion - Renewal 08/14 completed refill request Not Available Not Available Not Available cyclobenz aprine 10 mg tablet Take 1 tablet 3 times a day by oral route as needed. active Not Available Not Available No t Available amoxicill in 500 mg capsule active Not Available Not Available Not Available metformin 500 mg tablet Take 2 tablets every day by oral route. 04/09 completed Not Available Not Available Not Available neomycin- polymyxin -hydrocor t 3.5 mg/mL-10, 000 unit/mL-1 % ear solution INSTILL 4 DROPS INTO EACH EAR EVERY 8 HOURS 08/07 completed Not Available Not Available Not Available Toprol XL 100 mg tablet,ex tended release active Not Available Not Available Not Available citalopra m 40 mg tablet active Not Available Not Available Not Available triamcino lone acetonide 0.5 % topical cream APPLY CREAM TOPICALL Y WITH NYSTATIN TO VULVA TWICE DAILY 11/05 completed Not Available Not Available Not Available azithromy sukhi 250 mg tablet TAKE 2 TABLETS (500 MG) BY ORAL ROUTE ONCE DAILY FOR 1 DAY THEN 1 TABLET (250 MG) BY ORAL ROUTE ONCE DAILY FOR 4 DAYS active Not Available Not Available No t Available glyburide 5 mg tablet Take 2 tablets by mouth once daily. active Not Available Not Available No t Available ibuprofen 800 mg tablet Take 1 tablet 3 times a day by oral route as needed. active Not Available Not Available No t Available fluconazo le 150 mg tablet 1 tab po every 3rd day if yeast infectio n from [facility] 2023 active Not Available Not Available Not Avai lable metoprolo l succinate ER 50 mg tablet,ex tended release 24 hr Take 1 tablet by mouth once daily active Not Available Not Available No t Available valacyclo vir 1 gram tablet TAKE 2 TABLETS BY MOUTH TWICE DAILY FOR 1 DAY active Not Available Not Available No t Available hydrocodo ne 5 mg-acetam inophen 325 mg tablet Take 1-2 TABLET EVERY4- 6 HOURS by oral route. active Not Available Not Available No t Available metoprolo l succinate ER 50 mg tablet,ex tended release 1 po daily 05/20 completed Not Available Not Available Not Available minocycli ne 100 mg capsule TAKE 1 CAPSULE BY MOUTH TWICE DAILY FOR 10 DAYS 08/07 completed Not Available Not Available Not Available glipizide ER 5 mg tablet, extended release 24 hr Take 1 tablet every day by oral route. 08/07 completed Not Available Not Available Not Available pimecroli mus 1 % topical cream APPLY A THIN LAYER TO THE AFFECTED AREA OF RIGHT EAR EXTERNAL LY TWICE DAILY, RUB IN GENTLY AND COMPLETE LY 2023 active Not Available Not Available Not Avai lable clobetaso l 0.05 % topical cream APPLY TOPICALL Y DAILY TO RIGHT EXTERNAL EAR AND A SMALL AMOUNT ON A QTIP IN THE RIGHT EAR CANAL 08/14 completed Not Available Not Available Not Available ciproflox acin 500 mg tablet Take 1 tablet every 12 hours by oral route for 4 days. active Not Available Not Available No t Available triamcino lone acetonide 0.1 % topical cream APPLY A THIN LAYER TO THE AFFECTED AREA(S) BY TOPICAL ROUTE 2 TIMES PER DAY active Not Available Not Available No t Available butalbita l-acetami nophen-ca ffeine 50 mg-325 mg-40 mg tablet 1-2 tabs po Q6 hours as needed 05/03 completed Not Available Not Available Not Available ketorolac 10 mg tablet active Not Available Not Available Not Available alprazola m 0.5 mg tablet Take 1 tablet 3 times a day by oral route. active Not Available Not Available No t Available ofloxacin 0.3 % ear drops INSTILL 5 DROPS INTO THE AFFECTED EAR(S) THREE TIMES DAILY FOR 7 DAYS 08/14 completed Not Available Not Available Not Available betametha sone valerate 0.1 % topical cream APPLY A THIN LAYER TO THE AFFECTED AREA(S) BY TOPICAL ROUTE ONCE DAILY active Not Available Not Available No t Available meclizine 25 mg tablet Take 1 tablet 3 times a day by oral route. 11/05 completed Not Available Not Available Not Available cephalexi n 500 mg capsule TAKE 1 CAPSULE BY MOUTH EVERY 12 HOURS 07/04 completed Not Available Not Available Not Available simvastat in 20 mg tablet Take 1 tablet every day by oral route. active Not Available Not Available No t Available nystatin 100,000 unit/gram topical cream APPLY CREAM TOPICALL Y THREE TIMES DAILY TO RIGHT EXTERNAL EAR active Not Available Not Available No t Available lisinopri l 10 mg tablet active Not Available Not Available Not Available glimepiri de 4 mg tablet Take 1 tablet every day by oral route in the morning for 30 days. active Not Available Not Available No t Available clotrimaz ole 1 % topical solution INSTILL 5 DROPS INTO THE RIGHT EAR CANAL THREE TIMES DAILY 08/14 completed Not Available Not Available Not Available nystatin- triamcino lone 100,000 unit/g-0. 1 % topical cream 04/08 completed Not Available Not Available Not Available omeprazol e 20 mg capsule,d elayed release Take 1 capsule by mouth once daily active Not Available Not Available No t Available hydrocodo ne 5 mg-acetam inophen 500 mg tablet active Not Available Not Available Not Available metoprolo l succinate ER 25 mg tablet,ex tended release 24 hr active Not Available Not Available Not Available nystatin 100,000 unit/gram topical powder APPLY TO THE AFFECTED AREA(S) BY TOPICAL ROUTE 2 TIMES PER DAY 2023 active Not Available Not Available Not Avai lable losartan 50 mg-hydroc hlorothia zide 12.5 mg tablet Take 1 tablet by mouth once daily active Not Available Not Available No t Available fluocinon ronald 0.05 % topical cream APPLY TO THE AFFECTED AREA(S) BY TOPICAL ROUTE 2 TIMES PER DAY 08/20 completed too expensiv e per pt Not Available Not Available Not Available metformin ER 500 mg tablet,ex tended release 24 hr Take 2 tablets every day by oral route for 90 days. 05/03 completed Not Available Not Available Not Available mometason e 0.1 % topical cream 04/08 completed Not Available Not Available Not Available amoxicill in 875 mg-potass ium clavulana te 125 mg tablet TAKE 1 TABLET BY MOUTH TWICE DAILY 08/14 completed Not Available Not Available Not Available neomycin- polymyxin -hydrocor t 3.5 mg-10,000 unit/mL-1 % ear drops,nicolas p 04/08 completed Not Available Not Available Not Available Asprin Ec Low Dose 81 mg tablet,de layed release Take 1 tablet every day by oral route. 04/08 completed Not Available Not Available Not Available duloxetin e 60 mg capsule,d elayed release Take 1 capsule by mouth once daily active Not Available Not Available No t Available fluocinol one acetonide oil 0.01 % ear drops 04/08 completed Not Available Not Available Not Available Januvia 100 mg tablet Take 1 tablet by mouth once daily active Not Available Not Available No t Available Suprep Bowel Prep Kit 17.5 gram-3.13 gram-1.6 gram oral solution active Not Available Not Available Not Available Farxiga 10 mg tablet Take 1 tablet every day by oral route in the morning for 30 days. 08/20 completed too expensiv e per pt Not Available Not Available Not Available Jardiance 25 mg tablet Take 1 tablet by mouth once daily for 30 days active Not Available Not Available No t Available Fluvirin 1412-5178 (PF) 45 mcg(15 mcg x3)/0.5 mL intramusc ular syringe 04/08 completed Not Available Not Available Not Available Ozempic 0.25 mg or 0.5 mg (2 mg/1.5 mL) subcutane ous pen injector Inject 0.25 mg every week by subcutan eous route. 08/07 completed Not Available Not Available Not Available Flucelvax Quad (PF) 60 mcg (15 mcg x 4)/0.5 mL IM syringe PHARMACY ADMINIST ERED active Not Available Not Available No t Available Mounjaro 2.5 mg/0.5 mL subcutane ous pen injector Inject 2.5 mg every week by subcutan eous route for 30 days. 11/05 completed Not Available Not Available Not Available Vitals Date Recorded Body mass index (BMI) Body height Oxygen saturation Oxygen saturation in Arterial blood by Pulse oximetry Heart rate Body temperature Body weight Systolic blood pressure Diastolic blood pressure Provider Name and Address Organization Details Last Updated DateTime 2 33.6 kg/m2 165.1 cm 98 % 98 % 108 /min 97.5 [degF] 27573.6 6 g 128 mm[Hg] 90 mm[Hg] Not Available formerly [facility] 3 07:41:47 Date Recorded Body mass index (BMI) Body height Oxygen saturation Oxygen saturation in Arterial blood by Pulse oximetry Heart rate Body temperature Body weight Systolic blood pressure Diastolic blood pressure Provider Name and Address Organization Details Last Updated DateTime 3 34.1 kg/m2 165.1 cm 97 % 97 % 94 /min 97.3 [degF] 07468.4 4 g 144 mm[Hg] 100 mm[Hg] Not Available formerly [facility] 3 07:41:47 Date Recorded Body height Body mass index (BMI) Body weight Body temperature Heart rate Oxygen saturation Oxygen saturation in Arterial blood by Pulse oximetry Systolic blood pressure Diastolic blood pressure Provider Name and Address Organization Details Last Updated DateTime 3 165.1 cm 32.4 kg/m2 13603.5 1 g 96.6 [degF] 86 /min 98 % 98 % 110 mm[Hg] 82 mm[Hg] MAICOL Andres [facility] 3 10:09:48 Date Recorded Body height Body mass index (BMI) Body weight Body temperature Heart rate Oxygen saturation Oxygen saturation in Arterial blood by Pulse oximetry Systolic blood pressure Diastolic blood pressure Provider Name and Address Organization Details Last Updated DateTime 3 165.1 cm 33.3 kg/m2 50472.4 7 g 97.5 [degF] 82 /min 97 % 97 % 115 mm[Hg] 82 mm[Hg] Tova ignacio CMA [place] [facility] 3 09:53:14 Date Recorded Body height Body mass index (BMI) Body weight Body temperature Heart rate Respiratory rate Oxygen saturation Oxygen saturation in Arterial blood by Pulse oximetry Systolic blood pressure Diastolic blood pressure Provider Name and Address Organization Details Last Updated DateTime 4 165.1 cm 33.6 kg/m2 67334.6 6 g 98 [degF] 105 /min 16 /min 98 % 98 % 126 mm[Hg] 84 mm[Hg] Susan Dominguez RN [facility] 4 11:37:31 Social History None recorded. Functional Status None recorded. Mental Status None recorded. Family History Nothing Reported. Medical History No medical history recorded. Gynecological HistoryNo gynecological history recorded. Obstetrics History GPAL:G 0 P 0 0 0 0 Immunizations Vaccine Type Date Status Note Provider Nam e and Address Organization Details Recorded Time Influenza, adjuvanted, quadrivalent, PF 04/17/2023 completed Dustin Abarca RN [facility], [facility] 04/19/2023 08:40:45 Influenza, high-dose, quadrivalent, PF 05/03/2022 completed Not Available formerly [facility] 3 07:48:21 Past Encounters Encounter ID Performer Location Encounter Start Date Encounter Closed Date Diagnosis/Indication Diagnosis SNOMED-CT Code Diagnosis ICD10 Code Diagnosis Note [id number] [facility] [place] [address] [place] [address] 07/04/2021 00:00:00 07/05/2021 05:41:23 [id number] [facility] [place] [address] [place] [address] 08/11/2021 00:00:00 08/11/2021 22:03:19 [id number] [facility] [place] [address] [address] 05/03/2022 00:00:00 05/03/2022 20:28:30 [id number] [facility] [place] [address] [place] [address] 08/07/2022 00:00:00 08/07/2022 20:35:15 [id number] Irving Henriquez MD [facility] [place] [address] [facility] [place] [address] 11/05/2022 09:57:04 11/05/2022 10:33:21 Type 2 diabetes mellitus without complication 603024331 E11.9 A1C is 13.5% Needs to start ozempic. 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 In meantime will give glyburide 5 mg and take with januvia. F/u in 3 months. [id number] Irving Henriquez MD [facility] [place] [address] [facility] [place] [address] 02/05/2023 09:43:02 02/05/2023 10:21:33 Type 2 diabetes mellitus without complication 379628733 E11.9 A1C is 9.7% Trying to get on certified registered dental assistant program for this for ozempic. Will increase glyburide to Twice a day. Check BS Twice a day. [id number] MAYDA Yip [facility] [place] [address] [facility] [place] [address] 08/14/2023 11:32:39 08/14/2023 11:54:16 Type 2 diabetes mellitus without complication 069505763 E11.9 Gastroesop hageal reflux disease without esophagitis 292517080 K21.9 Candidiasis of skin 4988 3006 B37.2 Eczema 72153050 L30.9 Anxiety 07644799 F41.9 Arthritis 3021246 M19.90 Depressive disorder 3548 9007 F32.A Essential hypertension 91859519 I10 Gastroesop hageal reflux disease 898014019 K21.9 Health Concerns Section Related Observation LastModified by Organization Detai ls LastModified Time None Recorded Concern Status LastModified by Organization Details LastModified Time None Recorded Advance Directives Directive None Recorded Payers Encounter Date Sequence Insurance Name Policy Number Policy Leblanc Covered Member ID Leblanc Member ID Guarantor Name 11/05/2022 1 [employer] (MEDICARE REPLACEMENT PPO) [id number] Kristy Parsons [id number] Kristy Parsons 02/05/2023 1 [employer] (MEDICARE REPLACEMENT PPO) [id number] Kristy Sorianoers [id number] Kristy Thompson Cathers 08/14/2023 1 [employer] (MEDICARE REPLACEMENT PPO) [id number] Kristy Sorianoers [id number] Kristy Parsons Notes Date Note Type Note Provider Name and Address Organization Details Recorded Time 11/05/2022 text/html Here for A1C check. Needs assistance program form filled out for ozempic. drinking a lot of water. Has lost 10#s since last visit. Irving Henriquez MD [address], [place], [address], [employer] 11/05/2022 19:54:06 02/05/2023 text/html Here today for DM2 needs A1C. Last A1C was 13.5%. Taking januvia and glyburide for this. No low BS readings. Gets headaches more frequently. Could be stress and caffeine withdrawal. No other complaints other than weight. Irving Henriquez MD [address], [place], [address], [employer] 02/06/2023 06:26:40 08/14/2023 text/html Needs refills MAYDA Yip [address], [place], [address], [employer] 08/21/2023 16:48:41 OBGyn Episode No OBEpisode recorded.
[2024-09-24 10:23] VITALS: BP 124/78; PULSE 107; RESP 19; TEMP 36.2; O2SAT 98; BMI 33.0
[2024-09-24] MEDS: LACTATED RINGERS 1,000 ML 150 ML IV CONT (10:26)
[2024-09-24 10:39] LABS: Glucose Point of Care 275 mg/dl (65-105)
--- NOTE | 2024-09-24 10:59 | WPDANESEPPF ---
Anes - Initial Pre Proc Eval Procedure: Operation Date: 09/24/24 11:30 Proposed Procedures p Screening Colonoscopy - Peterson Hall MD Date/Time: 09/24/24 10:59 Surgeon: Peterson Hall MD Pre Op Diagnosis: Screening Patient Data Age: 69 Gender: F Height: 1.63 m Weight: 87.4 kg Last Vital Signs Temp 97.1 F L 09/24/24 10:23 Pulse 107 H 09/24/24 10:23 Resp 19 09/24/24 10:23 BP 124/78 09/24/24 10:23 Pulse Ox 98 09/24/24 10:23 O2 Del Method Room Air 09/24/24 10:23 Allergies Allergy/AdvReac Type Severity Reaction Status Date / Time metformin AdvReac Intermediate diarrhea,abdominal Verified 09/24/24 10:21 pain [id number]-[id number] Reductase AdvReac Intermediate pain Verified 09/24/24 10:21 Inhibitor Home Medications ?Medication ?Instructions ?Recorded ?Confirmed ?Type nystatin 100,000 unit/gram topical 1 applic topical TID #15 grams 05/15/23 09/24/24 Rx cream clobetasol 0.05 % topical cream 1 applic topical DAILY #15 grams 06/12/23 09/24/24 Rx clotrimazole 1 % topical solution See Rx Instructions topical 09/30/23 09/24/24 Rx .COMPLEX #30 mL alprazolam 0.25 mg tablet 0.25 mg PO QHS PRN anxiety #30 tabs 07/08/24 09/24/24 Rx duloxetine 60 mg capsule,delayed 60 mg PO DAILY #90 caps 07/08/24 09/24/24 Rx release glyburide 5 mg tablet 5 mg PO BID #180 tabs 07/08/24 09/24/24 Rx losartan 50 mg-hydrochlorothiazide 1 tablet PO DAILY #90 tabs 07/08/24 09/24/24 Rx 12.5 mg tablet omeprazole 20 mg capsule,delayed 20 mg PO DAILY #90 caps 07/08/24 09/24/24 Rx release valacyclovir 500 mg tablet See Rx Instructions PO .COMPLEX 07/08/24 09/24/24 Rx #60 tabs blood-glucose sensor (FreeStyle #6 ea 07/22/24 09/08/24 Rx Lorena 3 Plus Sensor device) empagliflozin 25 mg tablet 25 mg PO QAM #90 tabs 07/22/24 09/24/24 Rx (Jardiance) sitagliptin phosphate 100 mg 100 mg PO DAILY 09/08/24 09/24/24 History tablet (Januvia) metoprolol succinate 50 mg 25 mg PO DAILY 09/22/24 09/24/24 History tablet,extended release 24 hr Laboratory Tests 09/24/24 10:35 POC Capillary Glucose 275 H mg/dl (65-105) Patient hx anesthesia problems: none Family hx anesthesia problems: none Results Review: All pre-operative results and documents have been reviewed as part of the pre-operative evaluation. [facility] Past Medical History Medical History Encounter for Papanicolaou smear of cervix in high-risk patient with no prior abnormal result Diabetes type 2 Heel spur with heel spur surgery Otorrhea, right ear Otalgia Ear itching Neuropathy Arthritis Panic attacks Lipoma of back removed in 2020 Surgical History Surgical History Hx of section Hx of tonsillectomy History of carpal tunnel surgery History of bilateral tubal ligation Family History Family History Father Carcinoma of colon Family history of diabetes mellitus in first degree relative Family history of heart disease in male family member before age 55 Mother Carcinoma of colon Family history of heart disease in male family member before age 55 Sibling Carcinoma of colon Sibling Hypothyroidism (acquired) Other Cerebrovascular accident Diabetes mellitus Family history of cardiovascular disease Family history of hemochromatosis Hypertension Social History Social History Social History: Caffeine-daily Smoking status: Former smoker Second hand tobacco smoke exposure: No Smoking end date: 04/24/84 Alcohol intake: current Alcohol use details: rarely Substance use: never Substance use type: does not use Do You Feel Safe in your Home?: Yes Lack of Transportation: No Lack of Food: Never True Current Housing: I Have Housing Concerned About Future Housing: No Difficulty Paying Gas/Electric Bills: No Difficulty Paying for Meds: No Currently Unemployed: No Education: Associate Degree Difficulty w/ Childcare or Family Care: No Living arrangements: with family Additional living arrangements comments: Occupation/Education: retired 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 [employer] Gender identity (if verbalized by the patient): Female Sexual Orientation (if Verbalized by the Patient): Straight or Heterosexual Spiritual care concerns: No Agree to blood products: Yes Anes - Eval Final PreProcedure Day of Procedure 09/24/24 10:59 Patient weight: obese Heart: regular rate and rhythm Lungs: clear to auscultation Airway: Mallampati scale class II Neurological: alert and oriented Last oral intake: >/= 8 hours ASA classification: III Emergent: no Anesthetic plan: proceed Anesthesia type and monitoring: general GIVS and standard monitoring Results Review: All pre-operative results and documents have been reviewed as part of the pre-operative evaluation. Informed Consent: The patient's anesthetic plan and its attendant risks and benefits were discussed with the patient/family/POA. Questions were solicited and answers provided to the satisfaction of the patient/family/POA.
--- NOTE | 2024-09-24 11:05 | PM.HPGS ---
History of Present Illness History of Present Illness Consent: Risks, benefits, and alternatives have been discussed and questions answered. Patient agrees to proceed with procedure. Chief complaint: Screening Narrative: Kristy Parsons is a 69 year old female with last colonoscopy 2017, mother and sister had colon cancer Review of Systems Review of Systems: All systems reviewed & are unremarkable except as noted in HPI and below PMFSH Past Medical History Medical History Encounter for Papanicolaou smear of cervix in high-risk patient with no prior abnormal result Diabetes type 2 Heel spur with heel spur surgery Otorrhea, right ear Otalgia Ear itching Neuropathy Arthritis Panic attacks Lipoma of back removed in 2020 Surgical History Surgical History Hx of section Hx of tonsillectomy History of carpal tunnel surgery History of bilateral tubal ligation Family History Family History Father Carcinoma of colon Family history of diabetes mellitus in first degree relative Family history of heart disease in male family member before age 55 Mother Carcinoma of colon Family history of heart disease in male family member before age 55 Sibling Carcinoma of colon Sibling Hypothyroidism (acquired) Other Cerebrovascular accident Diabetes mellitus Family history of cardiovascular disease Family history of hemochromatosis Hypertension Social History Social History Social History: Caffeine-daily Smoking status: Former smoker Second hand tobacco smoke exposure: No Smoking end date: 04/24/84 Alcohol intake: current Alcohol use details: rarely Substance use: never Substance use type: does not use Do You Feel Safe in your Home?: Yes Lack of Transportation: No Lack of Food: Never True Current Housing: I Have Housing Concerned About Future Housing: No Difficulty Paying Gas/Electric Bills: No Difficulty Paying for Meds: No Currently Unemployed: No Education: Associate Degree Difficulty w/ Childcare or Family Care: No Living arrangements: with family Additional living arrangements comments: Occupation/Education: retired 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 Gender identity (if verbalized by the patient): Female Sexual Orientation (if Verbalized by the Patient): Straight or Heterosexual Spiritual care concerns: No Agree to blood products: Yes Meds Home Medications and Allergies Home Medications ?Medication ?Instructions ?Recorded ?Confirmed ?Type nystatin 100,000 unit/gram topical 1 applic topical TID #15 grams 05/15/23 09/24/24 Rx cream clobetasol 0.05 % topical cream 1 applic topical DAILY #15 grams 06/12/23 09/24/24 Rx clotrimazole 1 % topical solution See Rx Instructions topical 09/30/23 09/24/24 Rx .COMPLEX #30 mL alprazolam 0.25 mg tablet 0.25 mg PO QHS PRN anxiety #30 tabs 07/08/24 09/24/24 Rx duloxetine 60 mg capsule,delayed 60 mg PO DAILY #90 caps 07/08/24 09/24/24 Rx release glyburide 5 mg tablet 5 mg PO BID #180 tabs 07/08/24 09/24/24 Rx losartan 50 mg-hydrochlorothiazide 1 tablet PO DAILY #90 tabs 07/08/24 09/24/24 Rx 12.5 mg tablet omeprazole 20 mg capsule,delayed 20 mg PO DAILY #90 caps 07/08/24 09/24/24 Rx release valacyclovir 500 mg tablet See Rx Instructions PO .COMPLEX 07/08/24 09/24/24 Rx #60 tabs blood-glucose sensor (FreeStyle #6 ea 07/22/24 09/08/24 Rx [place]na 3 Plus Sensor device) empagliflozin 25 mg tablet 25 mg PO QAM #90 tabs 07/22/24 09/24/24 Rx (Jardiance) sitagliptin phosphate 100 mg 100 mg PO DAILY 09/08/24 09/24/24 History tablet (Januvia) metoprolol succinate 50 mg 25 mg PO DAILY 09/22/24 09/24/24 History tablet,extended release 24 hr Allergies Allergy/AdvReac Type Severity Reaction Status Date / Time metformin AdvReac Intermediate diarrhea,abdominal Verified 09/24/24 10:21 pain [id number] Reductase AdvReac Intermediate pain Verified 09/24/24 10:21 Inhibitor Vital Signs Vital Signs - 24 hr 09/24/24 10:23 Temperature 97.1 F L Pulse Rate 107 H Respiratory Rate 19 Blood Pressure 124/78 Pulse Oximetry 98 Oxygen Delivery Room Air Exam Const: General: comfortable and no acute distress HENMT: Face/Nose/Sinus: Normal nares present Eyes: General: appearance normal, both eyes and all related structures Neck: Neck: no JVD Resp: Auscultation: clear to auscultation bilaterally Cardio: Rate: regular rate Rhythm: regular rhythm GI: Inspection: non-distended GI Palp: Yes Soft to palpation Skin: General skin exam: normal color Neuro: Speech: normal speech Extrem: General: normal to inspection Psych: Mental Status: mental status grossly normal Assessment and Plan Assessment and plan (1) Family hx of colon cancer: Code(s): Z80.0 - Family history of malignant neoplasm of digestive organs Status: Acute Assessment and Plan: colonoscopy (2) Personal history of colonic polyps: Code(s): Z86.0100 - Personal history of colon polyps, unspecified Status: Acute
[2024-09-24 11:26] VITALS: BP 115/67; PULSE 95; RESP 19; O2SAT 95
[2024-09-24 11:36] VITALS: BP 113/62; PULSE 95; RESP 18; O2SAT 95
[2024-09-24 11:46] VITALS: BP 126/69; PULSE 93; RESP 25; O2SAT 96
== END 2024-09-24 12:00 | disposition home or self-care (01) ==
PROVIDERS: PCP Family Medicine; Referring Provider Family Medicine; Visit Provider Internal Medicine Gastroenterology
PROC: 0DJD8ZZ Inspection of Lower Intestinal Tract, Via Natural or Artificial Opening Endoscopic (ICD-10-PCS; CPT 45378; principal; 2024-09-24 11:30)
DX: Z12.11 Encounter for screening for malignant neoplasm of colon (principal); D12.0 Benign neoplasm of cecum; K63.5 Polyp of colon; K64.8 Other hemorrhoids; K57.30 Diverticulosis of large intestine without perforation or abscess without bleeding; E11.9 Type 2 diabetes mellitus without complications; F41.0 Panic disorder [episodic paroxysmal anxiety]; E66.9 Obesity, unspecified; Z68.33 Body mass index [BMI] 33.0-33.9, adult; Z79.84 Long term (current) use of oral hypoglycemic drugs; Z98.890 Other specified postprocedural states; Z98.51 Tubal ligation status; Z87.891 Personal history of nicotine dependence; Z80.0 Family history of malignant neoplasm of digestive organs; Z82.49 Family history of ischemic heart disease and other diseases of the circulatory system
CPT/HCPCS: 45385; 82948; 88305; J2003; J2704; J7120

== ENCOUNTER 2025-05-10 06:56 | Inpatient (IN) | payer MEDICARE, SELFPAY ==
[2025-05-10] VITALS (42 sets, daily range): BP systolic 95–129; BP diastolic 43–85; PULSE 92–110; RESP 14–46; TEMP 36.6–38.3; O2SAT 90–98; BMI 31.6
--- NOTE | ~2025-05-10 | CT_ITS ---
EXAMINATION: CT diagnostic chest w con DATE: 05/10/2025 08:46 INDICATION: left-sided chest mass TECHNIQUE: Computed tomography (CT) of the chest was performed with 100 mL Omnipaque-350 intravenous contrast. Additional 3D reconstructions utilizing coronal maximum intensity projection (MIP) were performed. Automated exposure control and iterative reconstruction technique were employed. The dose-length product was 343.62 mGy-cm. COMPARISON: Chest radiograph dated 05/10/2025 FINDINGS: Mild emphysema. Large region of dense consolidation with some surrounding patchy groundglass opacities involving the majority of the left lower lobe, relatively sparing the anterobasilar segment. There is no significant associated volume loss with air bronchograms and contrast opacified pulmonary vessels extending through the region of consolidation without evident architectural distortion. Appearance would be most consistent with pneumonia. 1.9 x 1.8 cm nodular opacity in the left upper lobe. Minimal left pleural effusion along the cephalad aspect of the left major fissure. Right lung remains clear. No pulmonary edema, pneumothorax or right-sided pleural effusion. Heart size is normal. No pericard ial effusion. Thoracic aorta is normal in caliber with no dissection. No pathologically enlarged thoracic lymphadenopathy. Visualized upper abdomen is unremarkable. Mild thoracic dextrocurvature with mild to moderate thoracic and upper lumbar and severe lower cervical spondylosis. IMPRESSION: 1. Mild emphysema with consolidation involving the majority of the left lower lobe without associated volume loss and with appearance most consistent with pneumonia. 2. Indeterminate 1.9 x 1.8 cm nodule in the left upper lobe which could represent additional pneumonia. Recommend 6-12 week follow-up following treatment to assess for resolution. Reviewed, dictated and finalized at location A. NFORMATICS COMPUTER SCIENTIST IMPRESSION: 1. Mild emphysema with consolidation involving the majority of the left lower l obe without associated volume loss and with appearance most consistent with pne umonia. 2. Indeterminate 1.9 x 1.8 cm nodule in the left upper lobe which could represe nt additional pneumonia. Recommend 6-12 week follow-up following treatment to a ssess for resolution.
--- NOTE | ~2025-05-10 | XR_ITS ---
EXAMINATION: XR chest 1V portable COMPARISON: No comparisons available. HISTORY: Follow-up pneumonia FINDINGS: There are infiltrates in the left upper and left lower lobes. Trace left effusion. No pneumothorax. Heart is normal size. Mediastinal and hilar contours are within normal limits. Bony thorax no acute abnormality. Miscellaneous: None Impression: Left-sided posterior probable pneumonia. The findings appear improved compared to the previous study. Reviewed, dictated and finalized at location P. TEAM ASSISTANT Impression: Left-sided posterior probable pneumonia. The findings appear improved compared to the previous study.
--- NOTE | ~2025-05-10 | XR_ITS ---
XR chest 2V 05/10/2025 08:14 Indication: Shortness of breath and cough Procedure: 2 view chest Comparison: No prior studies for comparison. Findings: There is a pleural-based mass of the left chest posteriorly, best seen on lateral view. Heart size normal. Right lung clear. No significant effusion or pneumothorax. No acute osseous abnormality. Impression: 1: Pleural-based left posterior chest mass. Follow-up CT chest recommended with contrast for further characterization. Reviewed, dictated and finalized at location O. DIRECTOR Impression: 1: Pleural-based left posterior chest mass. Follow-up CT chest recommended with contrast for further characterization.
--- OUTSIDE RECORDS SUMMARY | 2025-05-10 06:58 | XMS_ITS | Clinical Summary ---
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
--- OUTSIDE RECORDS SUMMARY | 2025-05-10 06:58 | XMS_ITS | Clinical Summary ---
Author Organization [facility] Address [address] [place] [address] Care Team Providers Care Team Leader Surgery Name Role Phone Seth Land MD Primary Care Provider [phone] Allergies Active Allergy Reactions Criticality Noted Date [...] 2 diabetes mellitus with hypoglycemia without coma Take 1 tablet (25 mg total) by [...] by mouth nightly 90 tablet 3 4 Active glyBURIDE (DIABETA) 5 mg tabletIndications :Uncontrolled type 2 diabetes mellitus with hypoglycemia without coma Take 2 tablets (10 mg total) by [...] Plan Services (PPPS): Opioid Use: No Immunization: [id number]: Not Applicable. Pnazhtq17: Not Applicable. PCV20: UTD - Done on 03/19/24 Influenza: Highly Recommended HepatitisB: Not Applicable. Tetanus: Highly Recommended Shingles: Highly Recommended RSV: Highly Recommended Cancer Screening: Mammogram: Not Applicable. PAP Smear: Not Applicable. Prostate Cancer Screening: Not Applicable. Colorectal Cancer Screening: UTD - Done on 2022 at [facility] Lung Cancer Screening: Not Applicable. Others: [...] Will assess treatment option in future. Recommend Bottling Line Attendant. 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 Not on file Not on file [...] 87.1 kg (192 lb) 07/01/2024 2:08 PM FINANCIAL MANAGER Height 165.1 cm (5' 5) 07/01/2024 2:08 PM FINANCIAL MANAGER Body Mass Index 31.95 07/01/2024 2:08 PM FINANCIAL MANAGER Plan of Treatment Health Maintenance Due Date Last Done Comments Colon Cancer Screening-Colonoscopy 1957 Osteoporosis Screening-Bone Density Scan 1957 Dilated Eye Exam 1957 Foot Exam 1957 DTaP/Tdap/Td Vaccine (1 - Tdap) 1968 Hepatitis B Screening 1975 Zoster Vaccine (1 of 2) 2007 Breast Cancer Screening-Mammogram 06/06/2024 06/06/2023, 10/23/2012, 11/26/2011 Hemoglobin A1C 09/21/2024 03/23/2024 Covid-19 Vaccine (3 - 2024-2 6 season) 2025 09/30/2020, 09/09/2020 Influenza Vaccine (#1) 2025 , 05/03/2022, 03/23/2021, Additional history exists Depression Screening [...] LAB URINE ORDERABLES Final Resul t BIANKA [address] [facility] Department of Laboratories [place], [place] [id number] * eGFR (03/23/2024 8:57 AM CDT) eGFR [...] ORDERABLES Final Resul t Performing Organization Address [facility] de Phone Number [id number] [place] [address] * Hepatitis C antibody Blood (03/23/2024 8:57 [...] ORDER HANS Final Result Performing Organization Address [facility] de Phone Number [id number] [place] [address] * (ABNORMAL) Hemoglobin A1c (03/23/2024 8:57 AM CDT) Hgb A1C 11.9(H) 4.0 - 5.6 % Estimated Average Glucose 295 mg/dL BIANKA NESS Comment: The ADA recommends reporting an estimated Average Glucose (eAG) with all Hemoglobin A1c results using the equation derived from a study of 507 normal and diabetic adults. Minority populations were underrepresented and children were not included. (Diabetes Care 31:8945-6210, 2008). The eAG is not equivalent to a fasting glucose. Blood 03/23/2024 8:57 AM CDT 03/23/2024 12:49 PM CDT us Seth Land MD LAB BLOOD ORDERABLES Final Resul t BIANKA [address] [facility] [place] [address] * (ABNORMAL) Lipid panel (03/23/2024 8:57 AM [...] on 2018. Triglycerides 173(H) <=149 mg/dL BIANKA NESS Comment: Interpretive Data Ages [...] on 2018. 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
--- NOTE | 2025-05-10 07:10 | ECG_ITS ---
Test Date: 2025-05-10 07:12:23 Measurements Intervals [place] Rate: 105 P: 12 DC: 136 QRS: -15 QRSD: 107 T: 30 QT: 347 QTc: 459 Interpretive Statements SINUS TACHYCARDIA LOW QRS VOLTAGE IN PRECORDIAL LEADS [QRS DEFLECTION < 1.0 mV IN CHEST LEADS] POOR R-WAVE PROGRESSION ABNORMAL RHYTHM ECG No previous ECG available for comparison Electronically Signed On 05-10-2025 07:29:22 MANAGER REPORT by Kalpesh Hamm M.D.
--- NOTE | 2025-05-10 07:24 | ED.GENADULT ---
HPI - General Adult General Chief complaint: Shortness of Breath/Dyspnea Stated complaint: short of breath, cough Time Seen by Provider: 05/10/25 06:59 History of Present Illness HPI narrative: 70-year-old female emergency department for evaluation for increased generalized weakness cough and lower back pain. Patient does live at home with her daughter daughter is helping take care of her. Patient had been complaining cough and lower back pain. Patient has had decreased p.o. intake. Patient was unsure she has been running a fever but the daughter states the patient has not been running a fever. Related Data Home Medications ?Medication ?Instructions ?Recorded ?Confirmed ?Last Taken ?Type sitagliptin phosphate 100 mg 100 mg PO DAILY 09/08/24 05/10/25 05/09/25 09:00 History tablet (Januvia) metoprolol succinate 50 mg 25 mg PO DAILY 09/22/24 05/10/25 05/09/25 09:00 History tablet,extended release 24 hr semaglutide 3 mg tablet (Rybelsus) 3 mg PO DAILY 04/07/25 05/10/25 05/09/25 09:00 History Allergies Allergy/AdvReac Type Severity Reaction Status Date / Time empagliflozin (From AdvReac Severe Itching Verified 05/10/25 14:57 Jardiance) metformin AdvReac Intermediate diarrhea,abdominal Verified 05/10/25 14:57 pain Tvnevmu-[id number] Reductase AdvReac Intermediate pain Verified 05/10/25 14:57 Inhibitor Review of Systems Review of Systems: All systems reviewed & are unremarkable except as noted in HPI and below PMFSH Past Medical History Medical History Encounter for Papanicolaou smear of cervix in high-risk patient with no prior abnormal result Diabetes type 2 Heel spur with heel spur surgery Otorrhea, right ear Otalgia Ear itching Neuropathy Arthritis Panic attacks Lipoma of back removed in 2020 Surgical History Surgical History Hx of section Hx of tonsillectomy History of carpal tunnel surgery History of bilateral tubal ligation Family History Family History Father Carcinoma of colon Family history of diabetes mellitus in first degree relative Family history of heart disease in male family member before age 55 Mother Carcinoma of colon Family history of heart disease in male family member before age 55 Sibling Carcinoma of colon Sibling Hypothyroidism (acquired) Other Cerebrovascular accident Diabetes mellitus Family history of cardiovascular disease Family history of hemochromatosis Hypertension Social History Social History Social History: Caffeine-daily Smoking packs per day: 1 Smoking cigarettes per day: 20.0 Years smoked: 15 Smoking pack-years: 15.00 Smoking status: Never smoker Second hand tobacco smoke exposure: Yes Smoking end date: 04/24/84 Alcohol intake: never Alcohol use details: rarely Substance use: never Substance use type: does not use Do You Feel Safe in your Home?: Yes Lack of Transportation: YES Lack of Food: Never True Current Housing: I Have Housing Concerned About Future Housing: No Difficulty Paying Gas/Electric Bills: No Difficulty Paying for Meds: No Currently Unemployed: No Education: Bachelor's Degree Difficulty w/ Childcare or Family Care: No Living arrangements: with family Additional living arrangements comments: Occupation/Education: retired 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 EYES: PERRLA/EOMI, conjunctivae clear. NOSE: Normal no drainage EARS:TMS clear with good light reflex. THROAT: Pharynx clear, no exudate. NECK: Supple. No adenopathy, no masses. RESPIRATORY: Airway patent, respirations nonlabored. Clear to auscultation bilaterally, no rales, rhonchi, wheezing. CARDIOVASCULAR: Regular rate and rhythm without murmurs rubs or gallops. ABDOMINAL: Soft, nontender, nondistended, normal bowel sounds MUSCULOSKELETAL: Moves all extremities. Strength/ROM intact, No edema, No calf tenderness. NEURO: Alert. Cranial nerves II through XII intact. Good gait. Good coordination SKIN: Warm, dry. Normal Color Course Vital Signs Vital signs: Vital Signs Temperature 99.4 F 05/10/25 07:04 Pulse Rate 107 H 05/10/25 07:04 Respiratory Rate 23 H 05/10/25 07:04 Blood Pressure 125/61 05/10/25 07:04 Pulse Oximetry 96 05/10/25 07:04 Oxygen Delivery Room Air 05/10/25 07:04 Temperature 99 F 05/10/25 16:00 Pulse Rate 97 05/10/25 16:55 Respiratory Rate 20 05/10/25 16:00 Blood Pressure 95/54 L 05/10/25 16:00 Pulse Oximetry 98 05/10/25 16:00 Oxygen Delivery Room Air 05/10/25 13:18 Medical Decision Making MDM Narrative Medical decision making narrative: 70-year-old female present to the emergency department for evaluation for increased generalized fatigue and shortness of breath. Patient was afebrile but does have a elevated leukocytosis of 18 and hemoglobin of 12.3. ESR was elevated at 125. Patient's sodium was 128, potassium 3.2, BUN is 26. Patient did have initial lactic acid of 4.2 but after 2 L of lactated Ringer's this did improved to 2.6. Patient's CRP was greater than 45. UA was negative for infection patient was negative for influenza RSV and for COVID. Chest x-ray was concerning for left-sided chest mass. CT scan was ordered and this was concerning for pneumonia. Patient was started on IV antibiotics in the emergency department. Blood cultures were ordered. Case discussed with hospitalist patient was accepted for admission. Patient and family were comfortable plan for admission. All questions concerns were addressed patient was well-appearing at time of admission. Differential Diagnosis Differential Diagnosis: Pneumonia, pulmonary embolism, COVID, RSV, influenza Vital Signs Vital Signs: Vital Signs Temperature 99.4 F 05/10/25 07:04 Pulse Rate 107 H 05/10/25 07:04 Respiratory Rate 23 H 05/10/25 07:04 Blood Pressure 125/61 05/10/25 07:04 Pulse Oximetry 96 05/10/25 07:04 Oxygen Delivery Room Air 05/10/25 07:04 Temperature 99 F 05/10/25 16:00 Pulse Rate 97 05/10/25 16:55 Respiratory Rate 20 05/10/25 16:00 Blood Pressure 95/54 L 05/10/25 16:00 Pulse Oximetry 98 05/10/25 16:00 Oxygen Delivery Room Air 05/10/25 13:18 Lab Data Lab results reviewed: Yes I reviewed the patient's lab results. 05/10/25 07:20 05/10/25 07:20 Labs: Lab Results 05/10/25 05/10/25 05/10/25 Range/Units 07:04 07:20 07:29 WBC 18.0 H (4.5-10.0) K/mm3 RBC 4.16 L (4.2-5.4) M/mm3 Hgb 12.3 (12.0-15.0) g/dL Hct 35.4 L (37.0-47.0) % MCV 85.1 (80-100) fl MCH 29.6 (26-34) pg MCHC 34.7 (32-36) g/dl RDW 12.0 (11.5-14.5) % Plt Count 278 (150-375) k/mm3 MPV 9.7 (7.4-10.4) fl Immature Gran % (Auto) Not Reportable Neut % (Auto) Not Reportable Lymph % (Auto) Not Reportable [place] % (Auto) Not Reportable Eos % (Auto) Not Reportable Baso % (Auto) Not Reportable Lymph # (Auto) Not Reportable [place] # (Auto) Not Reportable Eos # (Auto) Not Reportable Baso # (Auto) Not Reportable Abs Immat Gran (auto) Not Reportable Absolute Neuts (auto) Not Reportable Absolute Nucleated RBC Not Reportable Total Counted 100 Neutrophils % (Manual) 64 (46-73) % Band Neutrophils % 26 H (0-6) % Lymphocytes % (Manual) 4 L (18-44) % Monocytes % (Manual) 6 (3-9) % Nucleated RBC % Not Reportable Abs Neuts (Manual) 16.20 H (1.3-6.7) K/mm3 Abs Lymphs (Manual) 0.72 L (1.1-4.5) K/mm3 Abs Monocytes (Manual) 1.08 H (0.1-0.90) K/mm3 Toxic Granulation Present Platelet Estimate Adequate (Adequate) Hypochromasia Occasional Rector Cells Occasional Schistocytes None seen ESR 125 H (0-20) mm/hr Sodium 128 L (137-145) mmol/L Potassium 3.2 L (3.4-5.0) mmol/L Chloride 91 L (98-107) mmol/L Carbon Dioxide 24 (22-30) mmol/L Anion Gap 13 H (4-12) mmol/L BUN 26 H (7-17) mg/dL Creatinine 0.93 (0.7-1.0) mg/dL Estim Creat Clear Calc 55 ml/min Estimated GFR 60 (59 - ) Glucose 325 H (65-110) mg/dL POC Capillary Glucose 308 H (65-105) mg/dl Lactic Acid 4.2 H* (0.7-2.0) mmol/L Calcium 9.3 (8.4-10.2) mg/dL Total Bilirubin 1.5 H (0.2-1.3) mg/dL AST 30 (14-36) U/L ALT 21 (6-35) U/L Alkaline Phosphatase 108 (38-126) U/L C-Reactive Protein > 45.0 H (<1.0) mg/dL Total Protein 7.7 (6.3-8.2) g/dL Albumin 3.8 (3.5-5.1) g/dL Urine Color (Yellow) Urine Appearance (Clear) Urine pH (5.0-9.0) Ur Specific [place] (1.001-1.035) Urine Protein (Negative) mg/dL Urine Glucose (UA) (Negative) mg/dL Urine Ketones (Negative) mg/dL Ur Blood (Man) (Negative) Urine Nitrate (Negative) Urine Bilirubin (Negative) Urine Urobilinogen (<2.0) mg/dL Add Ur Microanalysis Leukocyte Esterase Rfl (Negative) ROCÍO/UL Urine RBC (0-2) /hpf Urine WBC (0-3) /hpf Ur Squamous Epith Cells (Few) /hpf Urine Bacteria /hpf Urine Casts Influenza A (RT-PCR) Negative (Negative) Influenza B (RT-PCR) Negative (Negative) RSV (RT-PCR) Negative (Negative) SARS-CoV-2 RNA (RT-PCR) Negative (Negative) 05/10/25 05/10/25 Range/Units 08:04 09:55 WBC (4.5-10.0) K/mm3 RBC (4.2-5.4) M/mm3 Hgb (12.0-15.0) g/dL Hct (37.0-47.0) % MCV (80-100) fl MCH (26-34) pg MCHC (32-36) g/dl RDW (11.5-14.5) % Plt Count (150-375) k/mm3 MPV (7.4-10.4) fl Immature Gran % (Auto) Neut % (Auto) Lymph % (Auto) [place] % (Auto) Eos % (Auto) Baso % (Auto) Lymph # (Auto) [place] # (Auto) Eos # (Auto) Baso # (Auto) Abs Immat Gran (auto) Absolute Neuts (auto) Absolute Nucleated RBC Total Counted Neutrophils % (Manual) (46-73) % Band Neutrophils % (0-6) % Lymphocytes % (Manual) (18-44) % Monocytes % (Manual) (3-9) % Nucleated RBC % Abs Neuts (Manual) (1.3-6.7) K/mm3 Abs Lymphs (Manual) (1.1-4.5) K/mm3 Abs Monocytes (Manual) (0.1-0.90) K/mm3 Toxic Granulation Platelet Estimate (Adequate) Hypochromasia Rector Cells Schistocytes ESR (0-20) mm/hr Sodium (137-145) mmol/L Potassium (3.4-5.0) mmol/L Chloride (98-107) mmol/L Carbon Dioxide (22-30) mmol/L Anion Gap (4-12) mmol/L BUN (7-17) mg/dL Creatinine (0.7-1.0) mg/dL Estim Creat Clear Calc ml/min Estimated GFR (59 - ) Glucose (65-110) mg/dL POC Capillary Glucose (65-105) mg/dl Lactic Acid 2.6 H (0.7-2.0) mmol/L Calcium (8.4-10.2) mg/dL Total Bilirubin (0.2-1.3) mg/dL AST (14-36) U/L ALT (6-35) U/L Alkaline Phosphatase (38-126) U/L C-Reactive Protein (<1.0) mg/dL Total Protein (6.3-8.2) g/dL Albumin (3.5-5.1) g/dL Urine Color Dark yellow (Yellow) Urine Appearance Clear (Clear) Urine pH 6.0 (5.0-9.0) Ur Specific [place] 1.038 H (1.001-1.035) Urine Protein 3+ H (Negative) mg/dL Urine Glucose (UA) 3+ H (Negative) mg/dL Urine Ketones 1+ H (Negative) mg/dL Ur Blood (Man) 2+ H (Negative) Urine Nitrate Negative (Negative) Urine Bilirubin 1+ H (Negative) Urine Urobilinogen 2.0 H (<2.0) mg/dL Add Ur Microanalysis Reviewed Leukocyte Esterase Rfl Negative (Negative) ROCÍO/UL Urine RBC 0-2 (0-2) /hpf Urine WBC 0-5 (0-3) /hpf Ur Squamous Epith Cells Occasional (Few) /hpf Urine Bacteria None seen /hpf Urine Casts 3-5 Influenza A (RT-PCR) (Negative) Influenza B (RT-PCR) (Negative) RSV (RT-PCR) (Negative) SARS-CoV-2 RNA (RT-PCR) (Negative) Imaging Data Radiologist's impression: Impressions Chest X-Ray 05/10/25 08:16 Impression: 1: Pleural-based left posterior chest mass. Follow-up CT chest recommended with contrast for further characterization. Chest CT 05/10/25 10:32 IMPRESSION: 1. Mild emphysema with consolidation involving the majority of the left lower lobe without associated volume loss and with appearance most consistent with pneumonia. 2. Indeterminate 1.9 x 1.8 cm nodule in the left upper lobe which could represent additional pneumonia. Recommend 6-12 week follow-up following treatment to assess for resolution. Discharge Plan Discharge Clinical Impression: Pneumonia Patient Disposition: Still a Patient Condition: Serious
[2025-05-10 07:29] LABS: Hematocrit 35.4 % (37.0-47.0); Hemoglobin 12.3 g/dL (12.0-15.0); Mean Corpuscular HGB Conc 34.7 g/dl (32-36); Mean Corpuscular Hemoglobin 29.6 pg (26-34); Mean Corpuscular Volume 85.1 fl (80-100); Platelet Count Result 278 k/mm3 (150-375); Red Blood Count 4.16 M/mm3 (4.2-5.4); White Blood Count 18.0 K/mm3 (4.5-10.0)
[2025-05-10] MEDS: ALBUTEROL SULFATE NEB 2.5 MG/3 ML INH INHALATION ×2 (07:32→13:18)
[2025-05-10] MEDS: LACTATED RINGERS 1,000 ML 999 ML IV CONT ×3 (07:33→23:05)
[2025-05-10 07:41] LABS: Alanine Aminotransferase 21 U/L (6-35); Albumin Level 3.8 g/dL (3.5-5.1); Alkaline Phosphatase 108 U/L (38-126); Anion Gap 13 mmol/L (4-12); Aspartate Amino Transferase 30 U/L (14-36); Bilirubin,Total 1.5 mg/dL (0.2-1.3); Blood Urea Nitrogen 26 mg/dL (7-17); Calcium 9.3 mg/dL (8.4-10.2); Carbon Dioxide 24 mmol/L (22-30); Chloride 91 mmol/L (98-107); Estimated CRCL calculation 55 ml/min; Estimated Glomerular Filt Rate 60; Glucose 325 mg/dL (65-110); Potassium 3.2 mmol/L (3.4-5.0); Sodium 128 mmol/L (137-145); Total Protein 7.7 g/dL (6.3-8.2)
--- OUTSIDE RECORDS SUMMARY | 2025-05-10 07:44 | XMS_ITS | Clinical Summary ---
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
--- OUTSIDE RECORDS SUMMARY | 2025-05-10 07:44 | XMS_ITS | Clinical Summary ---
Author Organization [facility] at the Medical Office Building Address [address] [place] [address] Care Team Providers Care Campaign Management Specialist Name Role Phone Seth Land MD Primary Care Provider [phone] Allergies Active Allergy Reactions Criticality Noted Date [...] Plan Services (PPPS): Opioid Use: No Immunization: [id number]: Not Applicable. [id number]: Not Applicable. [id number]: UTD - Done on 03/19/24 Influenza: Highly Recommended HepatitisB: Not Applicable. Tetanus: Highly Recommended Shingles: Highly Recommended RSV: Highly Recommended Cancer Screening: Mammogram: Not Applicable. PAP Smear: Not Applicable. Prostate Cancer Screening: Not Applicable. Colorectal Cancer Screening: UTD - Done on 2022 at [facility] Lung Cancer Screening: Not Applicable. Others: [...] Will assess treatment option in future. Recommend Vascular Ultrasound Technician. 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 Plan of Treatment Health Maintenance Due Date [...] LAB URINE ORDERABLES Final Resul t BIANKA [address] [facility] Department of Laboratories [place], [place] [id number] * eGFR (03/23/2024 8:57 AM CDT) eGFR [...] ORDERABLES Final Resul t Performing Organization Address [facility] de Phone Number [id number] [place] [address] * Hepatitis C antibody Blood (03/23/2024 8:57 [...] ORDER HANS Final Result Performing Organization Address [facility] de Phone Number [id number] [place] [address] * (ABNORMAL) Hemoglobin A1c (03/23/2024 8:57 AM CDT) Hgb A1C 11.9(H) 4.0 - 5.6 % Estimated Average Glucose 295 mg/dL BIANKA NESS Comment: The ADA recommends reporting an estimated Average Glucose (eAG) with all Hemoglobin A1c results using the equation derived from a study of 507 normal and diabetic adults. Minority populations were underrepresented and children were not included. (Diabetes Care 31:2320-1132, 2008). The eAG is not equivalent to a fasting glucose. Blood 03/23/2024 8:57 AM CDT 03/23/2024 12:49 PM CDT us Seth Land MD LAB BLOOD ORDERABLES Final Resul t BIANKA [address] [facility] Department [place] [address] * (ABNORMAL) Lipid panel (03/23/2024 8:57 AM [...] ORDERABLES Final Resul t BIANKA NESS [address] [facility] Department [place] [address] from Last 3 Months or Most Recently Relevant to Health Maintenance Insurance [employer] CHOICE MEDICARE PPO Advance Directives For more information, please contact: [phone] Documents on File Type Date Recorded Patient Insole And Outsole Splitter Expl anation ADVANCE DIRECTIVE 12/22/2012 12:00 AM 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
[2025-05-10] MEDS: ONDANSETRON INJ 4 MG/2 ML VIAL IV PUSH (07:51)
[2025-05-10 08:05] LABS: Influenza A QL RT-PCR Negative (Negative); Influenza B QL RT-PCR Negative (Negative); RSV RNA, RT-PCR Negative (Negative); SARS-CoV-2 RNA PCR Negative (Negative)
[2025-05-10 08:23] LABS: Add Urine Microscopic? YES; Appearance Urine Clear (Clear); Glucose Urine UA 3+ mg/dL (Negative); Leukocyte Esterase Ur Negative LEU/UL (Negative); Need Manual Microscopic Reviewed; Nitrate Urine Negative (Negative); Specific Grav Ur 1.038 (1.001-1.035)
[2025-05-10 08:27] LABS: Band Neutrophils Percent 26 % (0-6); Lymphocytes Absolute Manual 0.72 K/mm3 (1.1-4.5); Lymphocytes Percent Manual 4 % (18-44); Monocytes Absolute Manual 1.08 K/mm3 (0.1-0.90); Monocytes Percent Manual 6 % (3-9); Neutrophils Absolute Manual 16.20 K/mm3 (1.3-6.7); Neutrophils Percent Manual 64 % (46-73); Total Cells Counted 100
[2025-05-10 08:28] LABS: Burr Cells Occasional; Hypochromasia Occasional; Toxic Granulation Present
[2025-05-10 08:35] LABS: Schistocytes None Seen
[2025-05-10 09:30] LABS: CRP > 45.0 mg/dL (<1.0)
[2025-05-10] MEDS: cefTRIAXone 1 GM in SODIUM CHLORIDE 0.9% IV 50 ML 100 ML IVPB (11:24)
[2025-05-10] MEDS: ACETAMINOPHEN 500 MG TABLET 1000 MG PO (11:25)
[2025-05-10] MEDS: AZITHROMYCIN IV 500 MG in SODIUM CHLORIDE 0.9% IV 250 ML IVPB (12:03)
[2025-05-10 12:28] LABS: MRSA (PCR) NOT DETECTED (NOT DETECTE)
[2025-05-10] MEDS: VANCOMYCIN 2,000 MG/NS 500 ML 2,000 MG/500 ML BAG 250 MG IVPB (13:11)
--- NOTE | 2025-05-10 13:58 | WPCEDHO ---
ED Hand Off Checklist All vitals saved: yes IV Site documented: yes All med administrations documented: yes Triage Note Triage Note Pt to the ED with complaints of 05/10/25 07:04 SOB. upon observation pt has increased weakness unable to keep food down but able to tolerate fluid intake. Pt has hx diabetes anxiety depression, and hypertension. Pt blood sugar 308. Pt family states some urinary symptoms with some blood in urine Allergies empagliflozin (From Jardiance) Adverse Reaction (Severe, Verified 05/10/25 07:19) Itching metformin Adverse Reaction (Intermediate, Verified 05/10/25 07:19) diarrhea,abdominal pain [id number] Reductase Inhibitor Adverse Reaction (Intermediate, Verified 05/10/25 07:19) pain Family History (Last Reviewed 04/07/25 @ 13:01 by Dileep Matos MA) Father Carcinoma of colon Family history of diabetes mellitus in first degree relative Family history of heart disease in male family member before age 55 Mother Carcinoma of colon Family history of heart disease in male family member before age 55 Sibling Carcinoma of colon Sibling Hypothyroidism (acquired) Other Cerebrovascular accident Diabetes mellitus Family history of cardiovascular disease Family history of hemochromatosis Hypertension Active Medications including assessments/comments Albuterol (Albuterol Sulfate Neb 2.5 Mg/3 Ml Inh) 2.5 mg INHALATION Q6HRT ALEJANDRA Last Admin: 05/10/25 13:18 Dose: 2.5 mg Documented By: LUZ MAR Nebulizer Assessment Document 05/10/25 13:18 LUZ (Rec: 05/10/25 13:18 LUZ [id number]) Updraft Nebulizer Treatment Method Mask Treatment Tolerance Good Vancomycin HCl (Vancomycin 2,000 Mg/Ns 500 Ml) 2,000 mg in 500 mls @ 250 mls/hr IVPB ONCE ONE Stop: 05/10/25 14:59 Last Admin: 05/10/25 13:11 Dose: 250 mls/hr Documented By: KAYLEE Infusion/Titration Document 05/10/25 13:11 KAYLEE (Rec: 05/10/25 13:13 KAYLEE [id number]) Intake IV Site Peripheral Access Left Hand Container Volume 500 Waste Amount 0 Dosing Infusion Rate 250 Increase/Decrease Started Elapsed Time Elapsed Time ( 0m minutes) Administered/Completed Medications Discontinued Medications Acetaminophen (Acetaminophen 500 Mg Tablet) 1,000 mg PO ONCE STA Stop: 05/10/25 11:02 Last Admin: 05/10/25 11:25 Dose: 1,000 mg Documented By: KAYLEE Albuterol (Albuterol Sulfate Neb 2.5 Mg/3 Ml Inh) 2.5 mg INHALATION ONCE STA Stop: 05/10/25 07:24 Last Admin: 05/10/25 07:32 Dose: 2.5 mg Documented By: LUZ Lactated Ringer's (Lr - Lactated Ringers Iv) 1,000 mls @ 999 mls/hr IV CONT .Q1H1M STA Stop: 05/10/25 08:23 Last Infusion: 05/10/25 08:27 Dose: Infused Documented By: Admin: 05/10/25 07:33 Dose: 999 mls/hr Documented By: KAYLEE Lactated Ringer's (Lr - Lactated Ringers Iv) 1,000 mls @ 999 mls/hr IV CONT .Q1H1M STA Stop: 05/10/25 10:23 Last Infusion: 05/10/25 10:36 Dose: Infused Documented By: Admin: 05/10/25 09:35 Dose: 999 mls/hr Documented By: KAYLEE Ceftriaxone Sodium 1 gm/ (Sodium Chloride) 50 mls @ 100 mls/hr IVPB ONCE STA Stop: 05/10/25 10:26 Last Infusion: 05/10/25 11:54 Dose: Infused Documented By: Admin: 05/10/25 11:24 Dose: 100 mls/hr Documented By: KAYLEE Azithromycin 500 mg/ Sodium (Chloride) 250 mls @ 250 mls/hr IVPB ONCE STA Stop: 05/10/25 10:56 Last Infusion: 05/10/25 13:03 Dose: Infused Documented By: Admin: 05/10/25 12:03 Dose: 250 mls/hr Documented By: KAYLEE Ondansetron HCl (Ondansetron Inj 4 Mg/2 Ml Vial) 4 mg IV PUSH ONCE STA Stop: 05/10/25 07:49 Last Admin: 05/10/25 07:51 Dose: 4 mg Documented By: KAYLEE Interventions/Assessments Cardiac Monitoring Start: 05/10/25 06:58 Freq: Status: Active Protocol: Document 05/10/25 07:23 KAYLEE (Rec: 05/10/25 07:23 KAYLEE [id number]) Hand Cell Tuber Assessment Hand Cell Tuber Yes Applied Pulse Rate (60-100) 104 H EKG Rythm Sinus Tachycardia IV / Saline Lock, Insert Start: 05/10/25 07:18 Freq: STAT Status: Active Protocol: Document 05/10/25 11:01 KNW (Rec: 05/10/25 11:02 KNW [id number]) IV Assessment Peripheral Access Left Hand IV Catheter Access Initiated IV Insertion Date 05/10/25 IV Insertion Time 11:02 Catheter Gauge 20 IV Insertion 1 Attempts Ultrasound Used for No Placement IV Site Assessment WNL IV Care and WNL Maintenance PA: Cardiovascular Assessment Start: 05/10/25 06:58 Freq: Status: Active Protocol: Document 05/10/25 07:04 LLG (Rec: 05/10/25 07:10 LLG [id number]) Cardiovascular Assessment Cardiovascular Dyspnea Symptoms Skin Description Pallor Heart Sounds Normal Jugular Vein None Distention PA: Respiratory Assessment Start: 05/10/25 06:58 Freq: Status: Active Protocol: Document 05/10/25 07:04 LLG (Rec: 05/10/25 07:10 LLG [id number]) Respiratory Assessment Symptoms Shortness of Breath at Rest,Shortness of Breath With Exertion Effort Normal Pattern Regular Depth Normal Chest Expansion Symmetrical Cough Description None Sputum Amount None Oxygen Delivery Oxygen Delivery Room Air Pulse Oximetry (90- 95 100) Last Vital Signs Temperature 98.9 F 05/10/25 12:00 Pulse Rate 96 05/10/25 13:30 Respiratory Rate 30 H 05/10/25 13:30 Pulse Oximetry 94 05/10/25 13:30 Blood Pressure 110/58 L 05/10/25 13:30 Blood Pressure Mean 74 05/10/25 13:30 Oxygen Delivery Room Air 05/10/25 13:18 Weight 84 kg 05/10/25 07:04 Last Result - Abnormals Only WBC 18.0 K/mm3 (4.5-10.0) H 05/10/25 07:20 RBC 4.16 M/mm3 (4.2-5.4) L 05/10/25 07:20 Hct 35.4 % (37.0-47.0) L 05/10/25 07:20 Band Neutrophils % 26 % (0-6) H 05/10/25 07:20 Lymphocytes % (Manual) 4 % (18-44) L 05/10/25 07:20 Abs Neuts (Manual) 16.20 K/mm3 (1.3-6.7) H 05/10/25 07:20 Abs Lymphs (Manual) 0.72 K/mm3 (1.1-4.5) L 05/10/25 07:20 Abs Monocytes (Manual) 1.08 K/mm3 (0.1-0.90) H 05/10/25 07:20 ESR 125 mm/hr (0-20) H 05/10/25 07:20 Sodium 128 mmol/L (137-145) L 05/10/25 07:20 Potassium 3.2 mmol/L (3.4-5.0) L 05/10/25 07:20 Chloride 91 mmol/L (98-107) L 05/10/25 07:20 Anion Gap 13 mmol/L (4-12) H 05/10/25 07:20 BUN 26 mg/dL (7-17) H 05/10/25 07:20 Glucose 325 mg/dL (65-110) H 05/10/25 07:20 POC Capillary Glucose 349 mg/dl (65-105) H 05/10/25 13:25 Lactic Acid 2.6 mmol/L (0.7-2.0) H 05/10/25 09:55 Total Bilirubin 1.5 mg/dL (0.2-1.3) H 05/10/25 07:20 C-Reactive Protein > 45.0 mg/dL (<1.0) H 05/10/25 07:20 Ur Specific [place] 1.038 (1.001-1.035) H 05/10/25 08:04 Urine Protein 3+ mg/dL (Negative) H 05/10/25 08:04 Urine Glucose (UA) 3+ mg/dL (Negative) H 05/10/25 08:04 Urine Ketones 1+ mg/dL (Negative) H 05/10/25 08:04 Ur Blood (Man) 2+ (Negative) H 05/10/25 08:04 Urine Bilirubin 1+ (Negative) H 05/10/25 08:04 Urine Urobilinogen 2.0 mg/dL (<2.0) H 05/10/25 08:04 Most Recent Suicide Severity Rating Suicide Severity Rating NO RISK INDICATED 05/10/25 07:04
--- NOTE | 2025-05-10 14:44 | P.HP_ITS ---
H&P: HPI History of Present Illness Date/Time: 05/10/25 14:44 Chief Complaint: Shortness of breath Narrative: 70-year-old female with a past medical history of DM 2, anxiety, hypertension, GERD, depression, hyperlipidemia presents to the ED on 05/10/2025 with complaints of shortness of breath and cough. Patient states she has had a cough and mild shortness of breath for about 1 week. She further endorses decreased p.o. intake and subjective fever. Patient states she is unable to produce any sputum when she coughs. Patient has been feeling more exhausted over the past few days and has mostly been sleeping. Patient lives with her daughter who was concerned about patient having urinary symptoms with some blood in her urine. Patient denies chest pain. Initial vital signs 125/61, HR 107, respirations 23, temperature 99.4?, O2 96% on room air. Lab with leukocytosis with WBC 18, ESR 125 sodium 128, potassium 3.2, chloride 91, anion gap 13, BUN 26, glucose 325, lactic acid 4.2, total bilirubin 1.5, CRP 45. UA with elevated specific gravity, 3+ protein, glucose 3+, 1+ ketones, 2+ blood, 1+ bilirubin, urine urobilinogen 2.0. Viral panel negative. MRSA PCR negative. Chest x-ray reads pleural based left posterior chest mass. Recommended CT for further characterization. Chest CT reveals mild emphysema with consolidation involving the majority of the left lower lobe without associated volume loss and with appearance most consistent with pneumonia. Indeterminate 1.9 x 1.8 cm nodule in the left upper lobe which could represent additional pneumonia. Minimal left pleural effusion. Right lung clear. Review of Systems Review of Systems: All systems reviewed & are unremarkable except as noted in HPI and below PMFSH Past Medical History Medical History Encounter for Papanicolaou smear of cervix in high-risk patient with no prior abnormal result Diabetes type 2 Heel spur with heel spur surgery Otorrhea, right ear Otalgia Ear itching Neuropathy Arthritis Panic attacks Lipoma of back removed in 2020 Surgical History Surgical History Hx of section Hx of tonsillectomy History of carpal tunnel surgery History of bilateral tubal ligation Family History Family History Father Carcinoma of colon Family history of diabetes mellitus in first degree relative Family history of heart disease in male family member before age 55 Mother Carcinoma of colon Family history of heart disease in male family member before age 55 Sibling Carcinoma of colon Sibling Hypothyroidism (acquired) Other Cerebrovascular accident Diabetes mellitus Family history of cardiovascular disease Family history of hemochromatosis Hypertension Social History Social History Social History: Caffeine-daily Smoking packs per day: 1 Smoking cigarettes per day: 20.0 Years smoked: 15 Smoking pack-years: 15.00 Smoking status: Never smoker Second hand tobacco smoke exposure: Yes Smoking end date: 04/24/84 Alcohol intake: never Alcohol use details: rarely Substance use: never Substance use type: does not use Do You Feel Safe in your Home?: Yes Lack of Transportation: YES Lack of Food: Never True Current Housing: I Have Housing Concerned About Future Housing: No Difficulty Paying Gas/Electric Bills: No Difficulty Paying for Meds: No Currently Unemployed: No Education: Bachelor's Degree Difficulty w/ Childcare or Family Care: No Living arrangements: with family Additional living arrangements comments: Occupation/Education: retired 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 Gender identity (if verbalized by the patient): Female Sexual Orientation (if Verbalized by the Patient): Straight or Heterosexual Spiritual care concerns: No Agree to blood products: Yes Meds Home Medications and Allergies Home Medications ?Medication ?Instructions ?Recorded ?Confirmed ?Type duloxetine 60 mg capsule,delayed 60 mg PO DAILY #90 ca ps 07/08/24 05/10/25 Rx release losartan 50 mg-hydrochlorothiazide 1 tablet PO DAILY # 90 tabs 07/08/24 05/10/25 Rx 12.5 mg tablet omeprazole 20 mg capsule,delayed 20 mg PO DAILY #90 ca ps 07/08/24 05/10/25 Rx release sitagliptin phosphate 100 mg 100 mg PO DAILY 09/08/24 05/10/25 History tablet (Januvia) metoprolol succinate 50 mg 25 mg PO DAILY 09/22/24 History tablet,extended release 24 hr alprazolam 0.25 mg tablet 0.25 mg PO QHS PRN anxiety # 30 tabs 01/14/25 05/10/25 Rx valacyclovir 500 mg tablet See Rx Instructions PO .COM PLEX 01/14/25 05/10/25 Rx #60 tabs ezetimibe 10 mg tablet 10 mg PO DAILY #90 tabs 01/1605/10/25 Rx pioglitazone 30 mg tablet (Actos) 30 mg PO DAILY #90 t abs 02/11/25 05/10/25 Rx blood-glucose sensor (FreeStyle #6 ea 04/07/25 5 Rx [place] 3 Plus Sensor device) semaglutide 3 mg tablet (Rybelsus) 3 mg PO DAILY 04/0705/10/25 History Allergies Allergy/AdvReac Type Severity Reaction Status Date / Time empagliflozin (From AdvReac Severe Itching Verified 05/10/25 14:57 Jardiance) metformin AdvReac Intermediate diarrhea,abdominal Verified 05/10/25 14:57 pain [id number]-[id number] Reductase AdvReac Intermediate pain Verified 05/10/25 14:57 Inhibitor Vital Signs Vital Signs - 24 hr 05/10/25 07:04 05/10/25 07:04 05/10/25 07:05 Temperature 99.4 F Pulse Rate 107 H 106 H Respiratory Rate 23 H 31 H Blood Pressure 125/61 125/61 Pulse Oximetry 96 95 95 Oxygen Delivery Room Air Room Air 05/10/25 07:15 05/10/25 07:23 05/10/25 07:23 Temperature Pulse Rate 104 H 104 H Respiratory Rate 24 H Blood Pressure 129/61 Pulse Oximetry 94 94 Oxygen Delivery Room Air 05/10/25 07:30 05/10/25 07:32 05/10/25 07:38 Temperature Pulse Rate 101 H 101 H 99 Respiratory Rate 21 H 20 21 H Blood Pressure 123/43 L Pulse Oximetry 96 Oxygen Delivery 05/10/25 07:45 05/10/25 08:00 05/10/25 08:29 Temperature Pulse Rate 101 H 100 101 H Respiratory Rate 23 H 15 24 H Blood Pressure 107/60 124/44 L 125/56 L Pulse Oximetry 97 98 93 Oxygen Delivery 05/10/25 08:30 05/10/25 08:52 05/10/25 09:00 Temperature Pulse Rate 100 102 H 102 H Respiratory Rate 25 H 34 H 31 H Blood Pressure 123/63 120/57 L 126/67 Pulse Oximetry 93 94 91 Oxygen Delivery 05/10/25 09:16 05/10/25 09:30 05/10/25 09:45 Temperature 100 F H Pulse Rate 103 H 102 H 102 H Respiratory Rate 34 H 34 H 27 H Blood Pressure 119/54 L 106/85 128/45 L Pulse Oximetry 93 92 97 Oxygen Delivery 05/10/25 10:00 05/10/25 10:15 05/10/25 11:00 Temperature Pulse Rate 101 H 102 H 101 H Respiratory Rate 30 H 14 31 H Blood Pressure 111/67 118/67 104/54 L Pulse Oximetry 94 95 93 Oxygen Delivery 05/10/25 11:15 05/10/25 11:46 05/10/25 11:55 Temperature 98.9 F Pulse Rate 100 105 H Respiratory Rate 31 H 24 H Blood Pressure 106/55 L 108/58 L Pulse Oximetry 95 93 Oxygen Delivery 05/10/25 12:00 05/10/25 12:30 05/10/25 13:13 Temperature 98.9 F Pulse Rate 101 H 98 98 Respiratory Rate 19 46 H 20 Blood Pressure 112/59 L 107/68 110/60 Pulse Oximetry 93 90 94 Oxygen Delivery 05/10/25 13:15 05/10/25 13:18 05/10/25 13:24 Temperature Pulse Rate 98 95 95 Respiratory Rate 21 H 20 20 Blood Pressure Pulse Oximetry 94 Oxygen Delivery Room Air 05/10/25 13:30 Temperature Pulse Rate 96 Respiratory Rate 30 H Blood Pressure 110/58 L Pulse Oximetry 94 Oxygen Delivery Exam Narrative: GENERAL: in no acute distress. HEAD: Normocephalic, atraumatic. EYES: PERRLA. Conjunctivae clear. NOSE: Normal no drainage. THROAT: Pharynx clear, no exudate. NECK: Trachea midline. No adenopathy, no masses. RESPIRATORY: Airway patent, respirations nonlabored. Diminished lung sounds. CARDIOVASCULAR: Tachycardia with regular rhythm BREASTS: Defer GASTROINTESTINAL: Abdomen is soft and nontender. No organomegaly. Bowel sounds normal in all quadrants. GENITOURINARY: Defer MUSCULOSKELETAL: Moves all extremities. No gross deformities. SKIN: Warm, dry, normal color. NEURO: A&O X4. Speech clear PSYCHIATRIC: Normal interaction H&P: Results Labs Labs: Short CBC 05/10/25 Range/Units 07:20 WBC 18.0 H (4.5-10.0) K/mm3 Hgb 12.3 (12.0-15.0) g/dL Hct 35.4 L (37.0-47.0) % Plt Count 278 (150-375) k/mm3 BMP 05/10/25 07:20 Sodium 128 L Potassium 3.2 L Chloride 91 L Carbon Dioxide 24 BUN 26 H Creatinine 0.93 Glucose 325 H Calcium 9.3 Liver Function 05/10/25 Range/Units 07:20 Total Bilirubin 1.5 H (0.2-1.3) mg/dL AST 30 (14-36) U/L ALT 21 (6-35) U/L Alkaline Phosphatase 108 (38-126) U/L Albumin 3.8 (3.5-5.1) g/dL Urine 05/10/25 Range/Units 08:04 Urine Color Dark yellow (Yellow) Urine Appearance Clear (Clear) Urine pH 6.0 (5.0-9.0) Ur Specific [place] 1.038 H (1.001-1.035) Urine Protein 3+ H (Negative) mg/dL Urine Glucose (UA) 3+ H (Negative) mg/dL Assessment and Plan Assessment and plan (1) Pneumonia: Qualifiers: Pneumonia type: due to unspecified organism Laterality: left Lung location: unspecified part of lung Qualified Code(s): J18.9 - Pneumonia, unspecified organism Code(s): J18.9 - Pneumonia, unspecified organism Status: Acute Assessment and Plan: Patient presents with 1 week increasing shortness of breath and weakness. She does have a dry cough. Patient has been feeling more exhausted over the past few days and has mostly been sleeping. Minimal p.o. intake. Chest CT reveals mild emphysema with consolidation involving the majority of the left lower lobe without associated volume loss and with appearance most consistent with pneumon ia. Indeterminate 1.9 x 1.8 cm nodule in the left upper lobe which could represent additional pneumonia. Minimal left pleural effusion. Right lung clear. Current not requiring supplemental O2. - started on azithromycin, ceftriaxone, vancomycin on 05/10 - MRSA PCR negative - Viral PCR negative - acetaminophen p.r.n. - DuoNeb q.6 - Mucinex 600 mg q.12 - incentive spirometer Q 2 while awake (2) At risk for septic shock: Code(s): Z91.89 - Other specified personal risk factors, not elsewhere classified Status: Acute Assessment and Plan: Chest CT reveals mild emphysema with consolidation involving the majority of the left lower lobe without associated volume loss and with appearance most consistent with pneumonia. Indeterminate 1.9 x 1.8 cm nodule in the left upper lobe which could represent additional pneumonia. Minimal left pleural effusion. Right lung clear. WBC 18, ESR 125, CRP > 45.0. MRSA PCR negative. Viral panel negative - meets SIRS criteria: Initial HR 107, respiration 23. WBC 18 - lactic acid: 4.2-->2.6-->2.7--> pending - procalcitonin added - s/p 3 L LR - LR at 100 - started on antibiotics as listed above - blood cultures drawn on 05/10 - trend CBC, BMP - UA without signs of infection (3) Type 2 diabetes mellitus with diabetic neuropathy, without long-term current use of insulin: Code(s): E11.40 - Type 2 diabetes mellitus with diabetic neuropathy, unspecified Status: Chronic Assessment and Plan: Hyperglycemic in the 300s and high 200s, likely due to infection. - hypoglycemia protocol - POC blood glucose ACHS - home medication: Actos, semaglutide, Januvia - correct regimen ordered: Moderate corrective scale. - monitor glucose trend. May require increase in corrective scale - A1C 9.4 on 05/10/2025 (4) Anxiety and depression: Code(s): F41.9 - Anxiety disorder, unspecified; F32.A - Depression, unspecified Status: Chronic Assessment and Plan: Continue alprazolam p.r.n., duloxetine daily (5) Essential hypertension: Code(s): I10 - Essential (primary) hypertension Status: Chronic Assessment and Plan: Continue hydrochlorothiazide, losartan, and metoprolol as blood pressure allows during acute illness (6) Mixed hyperlipidemia: Code(s): E78.2 - Mixed hyperlipidemia Status: Chronic Assessment and Plan: Continue Zetia (7) GERD (gastroesophageal reflux disease): Qualifiers: Esophagitis presence: esophagitis presence not specified Qualified Code(s): K21.9 - Gastro-esophageal reflux disease without esophagitis Code(s): K21.9 - Gastro-esophageal reflux disease without esophagitis Status: Chronic Assessment and Plan: Continue pantoprazole Plan Diet: Consistent carb, heart healthy GI prophylaxis: Pantoprazole DVT prophylaxis: Heparin subcutaneous lines/drains: PIV Fluids: 2 L LR in ED Code status: Full Quality VTE Prophylaxis VTE prophylaxis: pharmacologic ordered Hospitalist [facility] Advance Care Plan I have confirmed that the patient's Advanced Care Plan is present, code status is documented, or surrogate decision maker is listed in patient medical record.: Yes Medication Reconciliation I have utilized all available resources to obtain, update and review the patients current medications (includes all prescriptions, OTC, herbals, cannabis, and nutritional supplements).: Yes
--- NOTE | 2025-05-10 14:55 | ADMGEN ---
This patient, Kristy Parsons, was admitted to IMU Room 211-01. Patient/family oriented to hospital policies and general routines including ID bracelet, bed and alarms, visiting hours, pain management, procedures, bathroom and other care routines, personal items, smoking policy, room service/diet, and visiting hours. Information on how to activate the Rapid Response Team has been discussed. Patient/Family are encouraged to report perceived risks to care and to ask questions if they do not understand what they are told or what they should do.
[2025-05-10] MEDS: PANTOPRAZOLE 40 MG TABLET PO (16:42)
[2025-05-10] MEDS: INSULIN ASPART (*BKC) 100 UNITS/ML SUB-Q (16:44)
[2025-05-10 16:51] LABS: Hemoglobin A1C 9.4 % (<5.7)
--- NOTE | 2025-05-10 16:59 | PC.NURSE ---
vianey braun stated to hold bp meds due to low bp
[2025-05-10] MEDS: EZETIMIBE 10 MG TABLET PO (17:04)
[2025-05-10] MEDS: DULoxetine HCL 60 MG CAPSULE.DR PO (17:04)
[2025-05-10] MEDS: IPRATROPIUM 0.5 MG/ALBUTEROL SULFATE 2.5 MG (BASE) AMPUL.NEB 3 ML INHALATION (20:07)
[2025-05-10] MEDS: guaiFENesin 12 HR 600 MG TABCR PO (22:00)
[2025-05-10] MEDS: LACTATED RINGERS 1,000 ML 100 ML IV CONT (23:23)
[2025-05-11] VITALS (26 sets, daily range): BP systolic 110–130; BP diastolic 51–66; PULSE 78–101; RESP 14–24; TEMP 36.3–37.4; O2SAT 93–98
[2025-05-11 00:02] LABS: INR 1.2; Prothrombin Time 14.8 Seconds (11.1-14.7)
[2025-05-11 01:03] LABS: Procalcitonin 4.1 ng/mL
[2025-05-11] MEDS: IPRATROPIUM 0.5 MG/ALBUTEROL SULFATE 2.5 MG (BASE) AMPUL.NEB 3 ML INHALATION ×4 (02:15→20:44)
[2025-05-11 04:39] LABS: Hematocrit 30.2 % (37.0-47.0); Hemoglobin 10.0 g/dL (12.0-15.0); Immature Granulocyte Percent A 1.2 % (0-0.5); Lymphocytes Absolute Auto 1.65 K/mm3 (0.9-3.2); Mean Corpuscular HGB Conc 33.1 g/dl (32-36); Mean Corpuscular Hemoglobin 29.4 pg (26-34); Mean Corpuscular Volume 88.8 fl (80-100); Nucleated Red Blood Cells Absolute Auto 0.000 K/mm3 (0.0-0.012); Nucleated Red Blood Cells Perc 0.0 % (0.0-0.2); Platelet Count Result 220 k/mm3 (150-375); Red Blood Count 3.40 M/mm3 (4.2-5.4); White Blood Count 12.5 K/mm3 (4.5-10.0)
[2025-05-11 05:06] LABS: Anion Gap 8 mmol/L (4-12); Blood Urea Nitrogen 18 mg/dL (7-17); Calcium 9.0 mg/dL (8.4-10.2); Carbon Dioxide 26 mmol/L (22-30); Chloride 95 mmol/L (98-107); Estimated CRCL calculation 66 ml/min; Estimated Glomerular Filt Rate > 60; Glucose 209 mg/dL (65-110); Potassium 2.8 mmol/L (3.4-5.0); Sodium 129 mmol/L (137-145)
[2025-05-11] MEDS: POTASSIUM CHLORIDE 20 MEQ ER TABLET 40 MEQ PO ×2 (06:03→08:38)
[2025-05-11] MEDS: LOSARTAN POTASSIUM 50 MG TABLET PO (08:38)
[2025-05-11] MEDS: LACTATED RINGERS 1,000 ML 100 ML IV CONT (08:38)
[2025-05-11] MEDS: METOPROLOL SUCCINATE EXT REL 25 MG TABCR PO (08:38)
[2025-05-11] MEDS: guaiFENesin 12 HR 600 MG TABCR PO ×2 (08:38→21:23)
[2025-05-11] MEDS: EZETIMIBE 10 MG TABLET PO (08:38)
[2025-05-11] MEDS: PANTOPRAZOLE 40 MG TABLET PO (08:38)
[2025-05-11] MEDS: VANCOMYCIN 1,500 MG/NS 500 ML 1,500 MG/500 ML BAG 250 MG IVPB (08:39)
[2025-05-11] MEDS: DULoxetine HCL 60 MG CAPSULE.DR PO (08:48)
[2025-05-11] MEDS: AZITHROMYCIN IV 500 MG in SODIUM CHLORIDE 0.9% IV 250 ML IVPB (11:52)
[2025-05-11] MEDS: cefTRIAXone 1 GM in SODIUM CHLORIDE 0.9% IV 50 ML 100 ML IVPB (11:54)
[2025-05-11 13:29] LABS: Anion Gap 9 mmol/L (4-12); Blood Urea Nitrogen 17 mg/dL (7-17); Calcium 8.8 mg/dL (8.4-10.2); Carbon Dioxide 25 mmol/L (22-30); Chloride 98 mmol/L (98-107); Estimated CRCL calculation 72 ml/min; Estimated Glomerular Filt Rate > 60; Glucose 205 mg/dL (65-110); Potassium 3.7 mmol/L (3.4-5.0); Sodium 132 mmol/L (137-145)
--- NOTE | 2025-05-11 14:45 | PM.IMPN ---
Progress Note: A&P Assessment and Plan (1) Sepsis: Code(s): A41.9 - Sepsis, unspecified organism Status: Acute Assessment and Plan: Patient presents with 1 week increasing shortness of breath and weakness. Sepsis present on admission with WBC 18, ESR 125, CRP > 45.0, low grade fever, tachycardia, tachypnea with lactic acidosis to 4.2. PCT 4. Chest CT reveals LLL consolidation without associated volume loss consistent with pneumonia. Minimal left pleural effusion. Right lung clear. MRSA PCR negative. Viral PCR negative BCx (05/10) pending UA without signs of infection Started on azithromycin, ceftriaxone, vancomycin on 05/10 Vital signs better. WBC trending down. Continue Mucinex and Duonebs. Continue IV abx. Increase activity. Follow up on Cx. Check sputum and urine Ag. Remains on room air. Stop Vanco (2) Pneumonia: Qualifiers: Laterality: left Lung location: unspecified part of lung Pneumonia type: due to unspecified organism Qualified Code(s): J18.9 - Pneumonia, unspecified organism Code(s): J18.9 - Pneumonia, unspecified organism Status: Acute Assessment and Plan: As above (3) Pulmonary nodule: Code(s): R91.1 - Solitary pulmonary nodule Status: Acute Assessment and Plan: CT chest also shows an indeterminate 1.9 x 1.8 cm nodule in the left upper lobe which could represent additional pneumonia. Will need repeat imaging as an outpatient to ensure clearance (4) Type 2 diabetes mellitus with diabetic neuropathy, without long-term current use of insulin: Code(s): E11.40 - Type 2 diabetes mellitus with diabetic neuropathy, unspecified Status: Chronic Assessment and Plan: A1c 9.4%. The patient's blood glucose was reviewed on 05/11 Glucose better controlled. Continue AccuCheks covering with sliding scale. Hypoglycemia protocol available as needed. Add Lantus (5) Essential hypertension: Code(s): I10 - Essential (primary) hypertension Status: Chronic Assessment and Plan: Patient's blood pressure was reviewed on 05/11 Blood pressure soft at times Will continue metoprolol but hold HTCZ and Losartan. Resume meds as blood pressure allows during acute illness (6) Anxiety and depression: Code(s): F41.9 - Anxiety disorder, unspecified; F32.A - Depression, unspecified Status: Chronic Assessment and Plan: Mood stable. Continue alprazolam p.r.n., duloxetine daily Plan DVT prophylaxis: Heparin subcutaneous Code status: Full Subjective Date/time seen: 05/11/25 14:45 Interval history: 70yo female with DM 2, anxiety, hypertension, GERD, depression, and hyperlipidemia who presents to the ED on 05/10/2025 with complaints of shortness of breath and cough. She feels tired today. No CP or SOB. She does not feel confused. Cough is nonproductive. No n/v. Feels hungry. Exam Narrative: Tm 100.9 98.7 126/66 87 16 94% ra Gen - NARD lying flat in bed Chest - left base inspiratory crackles with decreased BS CV - RRR S1/S2. Tele showing no significant dysrhythmias Abd - Soft, NT/ND, Positive BS Ext - No pedal edema Neuro - Alert and orientedx4. Nonfocal exam. Psych - Nml mood and affect Skin - Warm and dry. appears flushed Objective Data Vital Signs Vital Signs: Vital Signs - 24 hr 05/10/25 16:00 05/10/25 16:00 05/10/25 16:55 Temperature 99 F Pulse Rate 95 92 97 Respiratory Rate 20 Blood Pressure 95/54 L Pulse Oximetry 98 Oxygen Delivery Oxygen Flow Rate 05/10/25 18:00 05/10/25 19:55 05/10/25 20:00 Temperature 99.4 F Pulse Rate 104 H 110 H Respiratory Rate 30 H Blood Pressure 111/45 L Pulse Oximetry 92 Oxygen Delivery Room Air Oxygen Flow Rate 05/10/25 20:00 05/10/25 20:07 05/10/25 20:12 Temperature Pulse Rate 109 H 109 H 107 H Respiratory Rate 18 18 Blood Pressure Pulse Oximetry Oxygen Delivery Oxygen Flow Rate 05/10/25 20:14 05/10/25 22:00 05/10/25 23:06 Temperature Pulse Rate 104 H Respiratory Rate Blood Pressure Pulse Oximetry 95 Oxygen Delivery Room Air Room Air Oxygen Flow Rate 05/10/25 23:37 05/10/25 23:49 05/11/25 00:00 Temperature 100.9 F H Pulse Rate 107 H 101 H Respiratory Rate 28 H Blood Pressure 99/56 L Pulse Oximetry 93 90 Oxygen Delivery Nasal Cannula Oxygen Flow Rate 1 05/11/25 02:00 05/11/25 02:15 05/11/25 02:23 Temperature Pulse Rate 100 95 95 Respiratory Rate 20 20 Blood Pressure Pulse Oximetry Oxygen Delivery Oxygen Flow Rate 05/11/25 03:29 05/11/25 03:30 05/11/25 04:00 Temperature 98.7 F Pulse Rate 100 96 Respiratory Rate 22 H Blood Pressure 123/51 L Pulse Oximetry 94 98 Oxygen Delivery Nasal Cannula Oxygen Flow Rate 1 05/11/25 06:00 05/11/25 07:47 05/11/25 07:47 Temperature Pulse Rate 89 93 93 Respiratory Rate 18 18 Blood Pressure Pulse Oximetry 97 Oxygen Delivery Nasal Cannula Oxygen Flow Rate 1 05/11/25 07:54 05/11/25 08:00 05/11/25 08:00 Temperature 99.4 F Pulse Rate 98 95 Respiratory Rate 18 24 H Blood Pressure 130/58 L Pulse Oximetry 93 98 Oxygen Delivery Room Air Oxygen Flow Rate 05/11/25 08:00 05/11/25 08:38 05/11/25 10:00 Temperature Pulse Rate 99 96 92 Respiratory Rate Blood Pressure Pulse Oximetry Oxygen Delivery Oxygen Flow Rate 05/11/25 11:24 05/11/25 12:00 05/11/25 12:00 Temperature 98.7 F Pulse Rate 95 91 Respiratory Rate 20 Blood Pressure 126/66 Pulse Oximetry 94 Oxygen Delivery Room Air Oxygen Flow Rate 05/11/25 14:00 05/11/25 14:03 05/11/25 14:07 Temperature Pulse Rate 91 86 87 Respiratory Rate 16 16 Blood Pressure Pulse Oximetry Oxygen Delivery Oxygen Flow Rate Intake/Output Intake/Output: Intake & Output 05/08/25 05/09/25 05/10/25 05/11/25 23:59 23:59 23:59 23:59 Intake Total 3160 3065 Output Total 50 1100 Balance 3110 1965 Meds/Results Medications: Active Medications Generic Name Dose Route Start Last Admin Trade Name Freq PRN Reason Stop Dose Admin Acetaminophen 650 mg 05/10/25 22:23 Acetaminophen 325 Mg Tablet PO Q6H PRN Mild Pain (1-3) or Fever Albuterol/Ipratropium 3 ml 05/10/25 20:00 05/11/25 13:58 Ipratropium 0.5 Mg/Albuterol Sulfate 2.5 Mg (Base) Ampul.Neb 3 Ml INHALATION 3 ml Q6HRT ALEJANDRA Administration Alprazolam 0.25 mg 05/10/25 15:26 Alprazolam (*Crx) 0.25 Mg Tablet PO QHS PRN Anxiety Dextrose 12.5 gm 05/10/25 12:59 Dextrose 50% 25 Gm/50 Ml Syringe IV PUSH PRN PRN Hypoglycemia Protocol Duloxetine HCl 60 mg 05/10/25 15:30 05/11/25 08:48 Duloxetine Hcl 60 Mg Capsule.Dr PO 60 mg DAILY ALEJANDRA Administration Ezetimibe 10 mg 05/10/25 15:30 05/11/25 08:38 Ezetimibe 10 Mg Tablet PO 10 mg DAILY ALEJANDRA Administration Glucagon 1 mg 05/10/25 12:59 Glucagon For Inj 1 Mg Vial IM PRN PRN Hypoglycemia Protocol Glucose 15 gm 05/10/25 12:59 Glucose Oral Gel 15 Gm Of Glucse In 37.5 Gm Tube PO PRN PRN Hypoglycemia Protocol Guaifenesin 600 mg 05/10/25 21:00 05/11/25 08:38 Guaifenesin 12 Hr 600 Mg Tabcr PO 600 mg Q12HR ALEJANDRA Administration Heparin Sodium (Porcine) 5,000 units 05/10/25 14:00 05/11/25 14:26 Heparin Sodium 5,000 Units/Ml Vial SUB-Q 5,000 units Q8HR ALEJANDRA Administration Hydrochlorothiazide 12.5 mg 05/10/25 15:35 05/11/25 08:38 Hydrochlorothiazide 12.5 Mg Capsule PO 12.5 mg QAM ALEJANDRA Administration Ceftriaxone Sodium 1 gm/ 50 mls @ 100 mls/hr 05/11/25 11:00 05/11/25 12:28 Sodium Chloride IVPB Infused Q24H ALEJANDRA Infusion Azithromycin 500 mg/ Sodium 250 mls @ 250 mls/hr 05/11/25 12:00 05/11/25 11:52 Chloride IVPB 05/14/25 12:59 250 mls/hr Q24H ALEJANDRA Administration Dextrose 1,000 mls @ 100 mls/hr 05/10/25 12:59 Dextrose 5% 1,000 Ml IVPB PRN PRN Hypoglycemia Protocol Lactated Ringer's 1,000 mls @ 100 mls/hr 05/10/25 22:05 05/11/25 08:38 Lr - Lactated Ringers Iv IV CONT 100 mls/hr .Q10H ALEJANDRA Administration Vancomycin HCl 1,500 mg in 500 mls @ 250 mls/hr 05/11/25 09:00 05/11/25 12:28 Vancomycin 1,500 Mg/Ns 500 Ml IVPB Infused Q18H ALEJANDRA Infusion Insulin Aspart 3 - 6 units 05/10/25 17:00 05/11/25 11:50 Insulin Aspart (*Bkc) 100 Units/Ml SUB-Q Not Given TIDWM [facility] Protocol Losartan Potassium 50 mg 05/10/25 15:35 05/11/25 08:38 Losartan Potassium 50 Mg Tablet PO 50 mg QAM ALEJANDRA Administration Metoprolol Succinate 25 mg 05/10/25 15:30 05/11/25 08:38 Metoprolol Succinate Ext Rel 25 Mg Tabcr PO 25 mg DAILY ALEJANDRA Administration Pantoprazole Sodium 40 mg 05/10/25 15:30 05/11/25 08:38 Pantoprazole 40 Mg Tablet PO 40 mg QAM ALEJANDRA Administration Radiology Results: ITS Impressions Chest X-Ray 05/10/25 08:16 Impression: 1: Pleural-based left posterior chest mass. Follow-up CT chest recommended with contrast for further characterization. Chest CT 05/10/25 10:32 IMPRESSION: 1. Mild emphysema with consolidation involving the majority of the left lower lobe without associated volume loss and with appearance most consistent with pneumonia. 2. Indeterminate 1.9 x 1.8 cm nodule in the left upper lobe which could represent additional pneumonia. Recommend 6-12 week follow-up following treatment to assess for resolution. Labs Labs: Laboratory Results - last 24 hr 05/10/25 05/10/25 05/10/25 16:06 16:34 20:13 WBC RBC Hgb Hct MCV MCH MCHC RDW Plt Count MPV Immature Gran % (Auto) Neut % (Auto) Lymph % (Auto) [place] % (Auto) Eos % (Auto) Baso % (Auto) Lymph # (Auto) [place] # (Auto) Eos # (Auto) Baso # (Auto) Abs Immat Gran (auto) Absolute Neuts (auto) Absolute Nucleated RBC Nucleated RBC % PT INR Sodium Potassium Chloride Carbon Dioxide Anion Gap BUN Creatinine Estim Creat Clear Calc Estimated GFR Glucose POC Capillary Glucose 334 H 246 H Hemoglobin A1c 9.4 H Lactic Acid 2.7 H Calcium Phosphorus Procalcitonin 05/10/25 05/11/25 05/11/25 23:45 04:07 07:22 WBC 12.5 H RBC 3.40 L Hgb 10.0 L Hct 30.2 L MCV 88.8 MCH 29.4 MCHC 33.1 RDW 12.2 Plt Count 220 MPV 10.2 Immature Gran % (Auto) 1.2 H Neut % (Auto) 79.1 H Lymph % (Auto) 13.2 L [place] % (Auto) 5.8 Eos % (Auto) 0.1 Baso % (Auto) 0.6 Lymph # (Auto) 1.65 [place] # (Auto) 0.7 H Eos # (Auto) 0.0 Baso # (Auto) 0.1 Abs Immat Gran (auto) 0.15 H Absolute Neuts (auto) 9.9 H Absolute Nucleated RBC 0.000 Nucleated RBC % 0.0 PT 14.8 H INR 1.2 Sodium 129 L Potassium 2.8 L* Chloride 95 L Carbon Dioxide 26 Anion Gap 8 BUN 18 H Creatinine 0.77 Estim Creat Clear Calc 66 Estimated GFR > 60 Glucose 209 H POC Capillary Glucose 190 H Hemoglobin A1c Lactic Acid 1.6 Calcium 9.0 Phosphorus 2.6 Procalcitonin 4.1 05/11/25 05/11/25 11:03 13:04 WBC RBC Hgb Hct MCV MCH MCHC RDW Plt Count MPV Immature Gran % (Auto) Neut % (Auto) Lymph % (Auto) [place] % (Auto) Eos % (Auto) Baso % (Auto) Lymph # (Auto) [place] # (Auto) Eos # (Auto) Baso # (Auto) Abs Immat Gran (auto) Absolute Neuts (auto) Absolute Nucleated RBC Nucleated RBC % PT INR Sodium 132 L Potassium 3.7 Chloride 98 Carbon Dioxide 25 Anion Gap 9 BUN 17 Creatinine 0.71 Estim Creat Clear Calc 72 Estimated GFR > 60 Glucose 205 H POC Capillary Glucose 196 H Hemoglobin A1c Lactic Acid Calcium 8.8 Phosphorus Procalcitonin
[2025-05-11] MEDS: INSULIN ASPART (*BKC) 100 UNITS/ML SUB-Q (18:01)
[2025-05-11] MEDS: INSULIN GLARGINE (*BKC) 100 UNITS/ML 9 UNITS SUB-Q (21:23)
[2025-05-12] VITALS (12 sets, daily range): BP systolic 118–132; BP diastolic 55–66; PULSE 77–89; RESP 12–22; TEMP 36.2–37.1; O2SAT 94–98
[2025-05-12] MEDS: IPRATROPIUM 0.5 MG/ALBUTEROL SULFATE 2.5 MG (BASE) AMPUL.NEB 3 ML INHALATION ×4 (02:12→19:58)
[2025-05-12 06:03] LABS: Albumin Level 3.2 g/dL (3.5-5.1); Anion Gap 6 mmol/L (4-12); Blood Urea Nitrogen 16 mg/dL (7-17); Calcium 9.5 mg/dL (8.4-10.2); Carbon Dioxide 28 mmol/L (22-30); Chloride 99 mmol/L (98-107); Estimated CRCL calculation 75 ml/min; Estimated Glomerular Filt Rate > 60; Glucose 162 mg/dL (65-110); Magnesium 1.8 mg/dL (1.6-2.3); Potassium 3.4 mmol/L (3.4-5.0); Sodium 133 mmol/L (137-145)
[2025-05-12 06:11] LABS: Hematocrit 29.0 % (37.0-47.0); Hemoglobin 9.5 g/dL (12.0-15.0); Immature Granulocyte Percent A 1.8 % (0-0.5); Lymphocytes Absolute Auto 1.99 K/mm3 (0.9-3.2); Mean Corpuscular HGB Conc 32.8 g/dl (32-36); Mean Corpuscular Hemoglobin 29.1 pg (26-34); Mean Corpuscular Volume 89.0 fl (80-100); Nucleated Red Blood Cells Absolute Auto 0.000 K/mm3 (0.0-0.012); Nucleated Red Blood Cells Perc 0.0 % (0.0-0.2); Platelet Count Result 240 k/mm3 (150-375); Red Blood Count 3.26 M/mm3 (4.2-5.4); White Blood Count 9.7 K/mm3 (4.5-10.0)
[2025-05-12 06:58] LABS: Thyroid Stimulating Hormone Reflex 0.123 uIU/mL (0.465-4.68)
[2025-05-12 09:04] LABS: Free T4 Free Thyroxine Reflex 1.28 ng/dL (0.78-2.19)
[2025-05-12] MEDS: METOPROLOL SUCCINATE EXT REL 25 MG TABCR PO (09:26)
[2025-05-12] MEDS: guaiFENesin 12 HR 600 MG TABCR PO ×2 (09:26→21:12)
[2025-05-12] MEDS: DULoxetine HCL 60 MG CAPSULE.DR PO (09:27)
[2025-05-12] MEDS: PANTOPRAZOLE 40 MG TABLET PO (09:27)
[2025-05-12] MEDS: EZETIMIBE 10 MG TABLET PO (09:27)
[2025-05-12 10:00] LABS: Total Triiodothyronine (T3) 0.82 NG/ML (0.82-1.58)
[2025-05-12] MEDS: cefTRIAXone 1 GM in SODIUM CHLORIDE 0.9% IV 50 ML 100 ML IVPB ×2 (11:55→15:18)
--- NOTE | 2025-05-12 11:55 | PCCDE ---
Attempted to visit pt d/t response on admission assessment regarding concerns about BG, c/o weekly hypoglycemia and trouble taking meds. Went to room but pt declined. Pt was awake but kept her eyes closed. Will follow.
--- NOTE | 2025-05-12 12:25 | PM.IMPN ---
Progress Note: A&P Assessment and Plan (1) Sepsis: Code(s): A41.9 - Sepsis, unspecified organism Status: Acute Assessment and Plan: Patient presents with 1 week increasing shortness of breath and weakness. Sepsis present on admission with WBC 18, ESR 125, CRP > 45.0, low grade fever, tachycardia, tachypnea with lactic acidosis to 4.2. PCT 4. Chest CT reveals LLL consolidation without associated volume loss consistent with pneumonia. Minimal left pleural effusion. Right lung clear. MRSA PCR negative. Viral PCR negative BCx (05/10) pending, so far negative UA without signs of infection Continue with azithromycin, ceftriaxone, vancomycin on 05/10, Rocephin increase to 2 g 05/12 Vital signs better. WBC trending down. Continue Mucinex and Duonebs. Continue IV abx. Increase activity. Follow up on Cx. Check sputum and urine Ag. Remains on room air. (2) Pneumonia: Qualifiers: Laterality: left Lung location: unspecified part of lung Pneumonia type: due to unspecified organism Qualified Code(s): J18.9 - Pneumonia, unspecified organism Code(s): J18.9 - Pneumonia, unspecified organism Status: Acute Assessment and Plan: As above (3) Pulmonary nodule: Code(s): R91.1 - Solitary pulmonary nodule Status: Acute Assessment and Plan: CT chest also shows an indeterminate 1.9 x 1.8 cm nodule in the left upper lobe which could represent additional pneumonia. Will need repeat imaging as an outpatient to ensure clearance (4) Type 2 diabetes mellitus with diabetic neuropathy, without long-term current use of insulin: Code(s): E11.40 - Type 2 diabetes mellitus with diabetic neuropathy, unspecified Status: Chronic Assessment and Plan: A1c 9.4%. The patient's blood glucose was reviewed on 05/12 Glucose better controlled. Continue AccuCheks covering with sliding scale. Hypoglycemia protocol available as needed. Add Lantus (5) Essential hypertension: Code(s): I10 - Essential (primary) hypertension Status: Chronic Assessment and Plan: Patient's blood pressure was reviewed on 05/11 Blood pressure soft at times Will continue metoprolol but continued to hold HTCZ and Losartan. Resume meds as blood pressure allows during acute illness (6) Anxiety and depression: Code(s): F41.9 - Anxiety disorder, unspecified; F32.A - Depression, unspecified Status: Chronic Assessment and Plan: Mood stable. Continue alprazolam p.r.n., duloxetine daily Plan DVT prophylaxis: Heparin subcutaneous Code status: Full Subjective Date/time seen: 05/12/25 12:25 Interval history: 70yo female with DM 2, anxiety, hypertension, GERD, depression, and hyperlipidemia who presents to the ED on 05/10/2025 with complaints of shortness of breath and cough. Patient was seen and examined at bedside. She is feeling better. Breathing improving. Denies any chest pain abdominal pain, nausea vomiting. Oxygen saturation 98% on room air. WBC improved to 9.7, hemoglobin 9.5. Reviewed CT of chest concerning for pneumonia on the left side. Also concerning for left upper lobe nodule. Continue antibiotics IV for sepsis /pneumonia. Continue with Rocephin and azithromycin. We will change Rocephin to 2 g daily. Monitor BMP tomorrow. Review of Systems Review of Systems: All systems reviewed & are unremarkable except as noted in HPI and below Exam Narrative: Gen - NARD lying flat in bed Chest - left base inspiratory crackles with decreased BS CV - RRR S1/S2. Tele showing no significant dysrhythmias Abd - Soft, NT/ND, Positive BS Ext - No pedal edema Neuro - Alert and orientedx4. Nonfocal exam. Psych - Nml mood and affect Skin - Warm and dry. appears flushed Objective Data Vital Signs Vital Signs: Vital Signs - 24 hr 05/11/25 14:00 05/11/25 14:03 05/11/25 14:07 Temperature Pulse Rate 91 86 87 Respiratory Rate 16 16 Blood Pressure Pulse Oximetry Oxygen Delivery 05/11/25 15:26 05/11/25 16:00 05/11/25 16:00 Temperature 97.4 F L Pulse Rate 92 90 Respiratory Rate 24 H Blood Pressure 122/64 Pulse Oximetry 96 98 Oxygen Delivery Room Air 05/11/25 18:00 05/11/25 20:00 05/11/25 20:14 Temperature 97.6 F Pulse Rate 91 90 Respiratory Rate 21 H Blood Pressure 110/56 L Pulse Oximetry 96 96 Oxygen Delivery Room Air 05/11/25 20:44 05/11/25 20:44 05/11/25 20:49 Temperature Pulse Rate 78 94 Respiratory Rate 14 14 Blood Pressure Pulse Oximetry 98 Oxygen Delivery Room Air 05/11/25 23:11 05/12/25 02:16 05/12/25 02:21 Temperature 99.0 F Pulse Rate 85 89 83 Respiratory Rate 16 Blood Pressure 121/63 Pulse Oximetry 95 Oxygen Delivery 05/12/25 06:41 05/12/25 07:21 05/12/25 07:23 Temperature 98.7 F Pulse Rate 85 80 85 Respiratory Rate 12 14 14 Blood Pressure 118/55 L Pulse Oximetry 98 Oxygen Delivery Intake/Output Intake/Output: Intake & Output 05/09/25 05/10/25 05/11/25 05/12/25 23:59 23:59 23:59 23:59 Intake Total 3160 3385 480 Output Total 50 1700 Balance 3110 1685 480 Meds/Results Medications: Active Medications Generic Name Dose Route Start Last Admin Trade Name Freq PRN Reason Stop Dose Admin Acetaminophen 650 mg 05/10/25 22:23 Acetaminophen 325 Mg Tablet PO Q6H PRN Mild Pain (1-3) or Fever Albuterol/Ipratropium 3 ml 05/10/25 20:00 05/12/25 07:19 Ipratropium 0.5 Mg/Albuterol Sulfate 2.5 Mg (Base) Ampul.Neb 3 Ml INHALATION 3 ml Q6HRT ALEJANDRA Administration Alprazolam 0.25 mg 05/10/25 15:26 Alprazolam (*Crx) 0.25 Mg Tablet PO QHS PRN Anxiety Dextrose 12.5 gm 05/10/25 12:59 Dextrose 50% 25 Gm/50 Ml Syringe IV PUSH PRN PRN Hypoglycemia Protocol Duloxetine HCl 60 mg 05/10/25 15:30 05/12/25 09:27 Duloxetine Hcl 60 Mg Capsule.Dr PO 60 mg DAILY ALEJANDRA Administration Ezetimibe 10 mg 05/10/25 15:30 05/12/25 09:27 Ezetimibe 10 Mg Tablet PO 10 mg DAILY ALEJANDRA Administration Glucagon 1 mg 05/10/25 12:59 Glucagon For Inj 1 Mg Vial IM PRN PRN Hypoglycemia Protocol Glucose 15 gm 05/10/25 12:59 Glucose Oral Gel 15 Gm Of Glucse In 37.5 Gm Tube PO PRN PRN Hypoglycemia Protocol Guaifenesin 600 mg 05/10/25 21:00 05/12/25 09:26 Guaifenesin 12 Hr 600 Mg Tabcr PO 600 mg Q12HR ALEJANDRA Administration Heparin Sodium (Porcine) 5,000 units 05/10/25 14:00 05/12/25 09:25 Heparin Sodium 5,000 Units/Ml Vial SUB-Q Not Given Q8HR ALEJANDRA Hydrochlorothiazide 12.5 mg 05/10/25 15:35 05/11/25 08:38 Hydrochlorothiazide 12.5 Mg Capsule PO 12.5 mg On Hold: 05/11/25 20:09 QAM ALEJANDRA Administration Ceftriaxone Sodium 1 gm/ 50 mls @ 100 mls/hr 05/11/25 11:00 05/12/25 11:55 Sodium Chloride IVPB 100 mls/hr Q24H ALEJANDRA Administration Azithromycin 500 mg/ Sodium 250 mls @ 250 mls/hr 05/11/25 12:00 05/11/25 11:52 Chloride IVPB 05/14/25 12:59 250 mls/hr Q24H ALEJANDRA Administration Dextrose 1,000 mls @ 100 mls/hr 05/10/25 12:59 Dextrose 5% 1,000 Ml IVPB PRN PRN Hypoglycemia Protocol Insulin Aspart 3 - 6 units 05/10/25 17:00 05/12/25 09:25 Insulin Aspart (*Bkc) 100 Units/Ml SUB-Q Not Given TIDWM ALEJANDRA Protocol Insulin Glargine 9 units 05/11/25 21:00 05/11/25 21:23 Insulin Glargine (*Bkc) 100 Units/Ml SUB-Q 9 units HS ALEJANDRA Administration Losartan Potassium 50 mg 05/10/25 15:35 05/11/25 08:38 Losartan Potassium 50 Mg Tablet PO 50 mg On Hold: 05/11/25 20:09 QAM ALEJANDRA Administration Metoprolol Succinate 25 mg 05/10/25 15:30 05/12/25 09:26 Metoprolol Succinate Ext Rel 25 Mg Tabcr PO 25 mg DAILY ALEJANDRA Administration Pantoprazole Sodium 40 mg 05/10/25 15:30 05/12/25 09:27 Pantoprazole 40 Mg Tablet PO 40 mg QAM ALEJANDRA Administration Radiology Results: ITS Impressions Chest X-Ray 05/10/25 08:16 Impression: 1: Pleural-based left posterior chest mass. Follow-up CT chest recommended with contrast for further characterization. Chest CT 05/10/25 10:32 IMPRESSION: 1. Mild emphysema with consolidation involving the majority of the left lower lobe without associated volume loss and with appearance most consistent with pneumonia. 2. Indeterminate 1.9 x 1.8 cm nodule in the left upper lobe which could represent additional pneumonia. Recommend 6-12 week follow-up following treatment to assess for resolution. Labs Labs: Laboratory Results - last 24 hr 05/11/25 05/11/25 05/11/25 13:04 16:29 20:29 WBC RBC Hgb Hct MCV MCH MCHC RDW Plt Count MPV Immature Gran % (Auto) Neut % (Auto) Lymph % (Auto) [place] % (Auto) Eos % (Auto) Baso % (Auto) Lymph # (Auto) [place] # (Auto) Eos # (Auto) Baso # (Auto) Abs Immat Gran (auto) Absolute Neuts (auto) Absolute Nucleated RBC Nucleated RBC % Sodium 132 L Potassium 3.7 Chloride 98 Carbon Dioxide 25 Anion Gap 9 BUN 17 Creatinine 0.71 Estim Creat Clear Calc 72 Estimated GFR > 60 Glucose 205 H POC Capillary Glucose 218 H 245 H Calcium 8.8 Phosphorus Magnesium Albumin TSH (Reflex) Free T4 Total T3 05/12/25 05/12/25 05/12/25 05:41 07:47 11:41 WBC 9.7 RBC 3.26 L Hgb 9.5 L Hct 29.0 L MCV 89.0 MCH 29.1 MCHC 32.8 RDW 12.5 Plt Count 240 MPV 9.8 Immature Gran % (Auto) 1.8 H Neut % (Auto) 68.7 Lymph % (Auto) 20.5 [place] % (Auto) 7.1 Eos % (Auto) 1.5 Baso % (Auto) 0.4 Lymph # (Auto) 1.99 [place] # (Auto) 0.7 H Eos # (Auto) 0.2 Baso # (Auto) 0.0 Abs Immat Gran (auto) 0.18 H Absolute Neuts (auto) 6.7 Absolute Nucleated RBC 0.000 Nucleated RBC % 0.0 Sodium 133 L Potassium 3.4 Chloride 99 Carbon Dioxide 28 Anion Gap 6 BUN 16 Creatinine 0.67 L Estim Creat Clear Calc 75 Estimated GFR > 60 Glucose 162 H POC Capillary Glucose 171 H 248 H Calcium 9.5 Phosphorus 3.1 Magnesium 1.8 Albumin 3.2 L TSH (Reflex) 0.123 L Free T4 1.28 Total T3 0.82 Quality VTE Prophylaxis VTE prophylaxis: pharmacologic ordered
[2025-05-12] MEDS: AZITHROMYCIN IV 500 MG in SODIUM CHLORIDE 0.9% IV 250 ML IVPB (12:40)
[2025-05-12] MEDS: INSULIN ASPART (*BKC) 100 UNITS/ML SUB-Q ×2 (12:40→17:48)
[2025-05-12] MEDS: INSULIN GLARGINE (*BKC) 100 UNITS/ML 9 UNITS SUB-Q (21:12)
[2025-05-13] VITALS (13 sets, daily range): BP systolic 111–134; BP diastolic 50–74; PULSE 77–94; RESP 14–22; TEMP 36.3–36.6; O2SAT 91–99
[2025-05-13] MEDS: IPRATROPIUM 0.5 MG/ALBUTEROL SULFATE 2.5 MG (BASE) AMPUL.NEB 3 ML INHALATION ×4 (02:05→20:21)
[2025-05-13 05:25] LABS: Hematocrit 30.3 % (37.0-47.0); Hemoglobin 10.1 g/dL (12.0-15.0); Mean Corpuscular HGB Conc 33.3 g/dl (32-36); Mean Corpuscular Hemoglobin 29.7 pg (26-34); Mean Corpuscular Volume 89.1 fl (80-100); Platelet Count Result 274 k/mm3 (150-375); Red Blood Count 3.40 M/mm3 (4.2-5.4); White Blood Count 8.7 K/mm3 (4.5-10.0)
[2025-05-13 05:59] LABS: Anion Gap 6 mmol/L (4-12); Blood Urea Nitrogen 14 mg/dL (7-17); Calcium 9.8 mg/dL (8.4-10.2); Carbon Dioxide 28 mmol/L (22-30); Chloride 99 mmol/L (98-107); Estimated CRCL calculation 85 ml/min; Estimated Glomerular Filt Rate > 60; Glucose 182 mg/dL (65-110); Potassium 3.2 mmol/L (3.4-5.0); Sodium 133 mmol/L (137-145)
[2025-05-13] MEDS: DULoxetine HCL 60 MG CAPSULE.DR PO (09:04)
[2025-05-13] MEDS: guaiFENesin 12 HR 600 MG TABCR PO ×2 (09:04→22:09)
[2025-05-13] MEDS: AZITHROMYCIN 250 MG TABLET PO (09:04)
[2025-05-13] MEDS: METOPROLOL SUCCINATE EXT REL 25 MG TABCR PO (09:04)
[2025-05-13] MEDS: PANTOPRAZOLE 40 MG TABLET PO (09:04)
[2025-05-13] MEDS: EZETIMIBE 10 MG TABLET PO (09:05)
[2025-05-13] MEDS: POTASSIUM CHLORIDE 20 MEQ ER TABLET 40 MEQ PO (09:08)
[2025-05-13] MEDS: INSULIN ASPART (*BKC) 100 UNITS/ML SUB-Q ×2 (12:03→17:09)
[2025-05-13] MEDS: cefTRIAXone 2 GM in SODIUM CHLORIDE 0.9% IV 100 ML 200 ML IVPB (12:06)
--- NOTE | 2025-05-13 12:35 | PM.IMPN ---
Progress Note: A&P Assessment and Plan (1) Sepsis: Code(s): A41.9 - Sepsis, unspecified organism Status: Acute Assessment and Plan: Patient presents with 1 week increasing shortness of breath and weakness. Sepsis present on admission with WBC 18, ESR 125, CRP > 45.0, low grade fever, tachycardia, tachypnea with lactic acidosis to 4.2. PCT 4. Chest CT reveals LLL consolidation without associated volume loss consistent with pneumonia. Minimal left pleural effusion. Right lung clear. MRSA PCR negative. Viral PCR negative BCx (05/10) NGTD Legionella Ag and Strept Ag pending UA without signs of infection Vital signs stable. WBC normal. Remains on room air. Continue with azithromycin, ceftriaxone, vancomycin on 05/10, Rocephin increase to 2 g 05/12 Continue Mucinex and Duonebs. Increase activity. PT/OT. Follow up on Cx. (2) Pneumonia: Qualifiers: Laterality: left Lung location: unspecified part of lung Pneumonia type: due to unspecified organism Qualified Code(s): J18.9 - Pneumonia, unspecified organism Code(s): J18.9 - Pneumonia, unspecified organism Status: Acute Assessment and Plan: As above (3) Pulmonary nodule: Code(s): R91.1 - Solitary pulmonary nodule Status: Acute Assessment and Plan: CT chest also shows an indeterminate 1.9 x 1.8 cm nodule in the left upper lobe which could represent additional pneumonia. Patient was made aware. Will need repeat imaging as an outpatient to ensure clearance (4) Type 2 diabetes mellitus with diabetic neuropathy, without long-term current use of insulin: Code(s): E11.40 - Type 2 diabetes mellitus with diabetic neuropathy, unspecified Status: Chronic Assessment and Plan: A1c 9.4%. The patient's blood glucose was reviewed on 05/13 Glucose poorly controlled Continue AccuCheks covering with sliding scale. Hypoglycemia protocol available as needed. Advance Lantus (5) Essential hypertension: Code(s): I10 - Essential (primary) hypertension Status: Chronic Assessment and Plan: Patient's blood pressure was reviewed on 05/13 Blood pressure stable Will continue metoprolol but continued to hold HTCZ and Losartan. Resume meds as blood pressure allows during acute illness (6) Anxiety and depression: Code(s): F41.9 - Anxiety disorder, unspecified; F32.A - Depression, unspecified Status: Chronic Assessment and Plan: Mood stable. Continue alprazolam p.r.n., duloxetine daily Plan DVT prophylaxis: Heparin subcutaneous Code status: Full Subjective Date/time seen: 05/13/25 12:35 Interval history: 70yo female with DM 2, anxiety, hypertension, GERD, depression, and hyperlipidemia who presents to the ED on 05/10/2025 with complaints of shortness of breath and cough. Resuming care. Chart reviewed. She still feels SOB. Not walking yet but is worried since she also has hx of vertigo. Slight pleuritic chest pain. Cough i nonproductive. No CP. Exam Narrative: AF 97.5 117/64 83 16 91% ra Gen - NARD lying flat in bed Chest - left mid and lower lung field inspiratory crackles with improved air movement. nml RR CV - RRR S1/S2 Abd - Soft, NT/ND, Positive BS Ext - No pedal edema Psych - Nml mood and affect Skin - Warm and dry Objective Data Vital Signs Vital Signs: Vital Signs - 24 hr 05/12/25 14:00 05/12/25 14:40 05/12/25 14:42 Temperature 98.4 F Pulse Rate 81 77 77 Respiratory Rate 22 H 18 18 Blood Pressure 132/66 Pulse Oximetry 98 Oxygen Delivery 05/12/25 19:59 05/12/25 20:00 05/12/25 20:01 Temperature Pulse Rate 89 Respiratory Rate 16 Blood Pressure Pulse Oximetry 94 Oxygen Delivery Room Air Room Air 05/12/25 20:06 05/12/25 20:27 05/13/25 02:05 Temperature 97.1 F L Pulse Rate 86 81 80 Respiratory Rate 16 16 14 Blood Pressure 126/61 Pulse Oximetry 97 Oxygen Delivery 05/13/25 02:11 05/13/25 04:30 05/13/25 07:43 Temperature 97.5 F L Pulse Rate 85 88 Respiratory Rate 14 18 Blood Pressure 117/64 Pulse Oximetry 99 91 Oxygen Delivery Room Air 05/13/25 07:43 05/13/25 07:48 05/13/25 09:04 Temperature Pulse Rate 80 77 83 Respiratory Rate 16 16 Blood Pressure Pulse Oximetry Oxygen Delivery Intake/Output Intake/Output: Intake & Output 05/10/25 05/11/25 05/12/25 05/13/25 23:59 23:59 23:59 23:59 Intake Total 3160 3635 1670 480 Output Total 50 1700 Balance 3110 1935 1670 480 Meds/Results Medications: Active Medications Generic Name Dose Route Start Last Admin Trade Name Freq PRN Reason Stop Dose Admin Acetaminophen 650 mg 05/10/25 22:23 Acetaminophen 325 Mg Tablet PO Q6H PRN Mild Pain (1-3) or Fever Albuterol/Ipratropium 3 ml 05/10/25 20:00 05/13/25 07:43 Ipratropium 0.5 Mg/Albuterol Sulfate 2.5 Mg (Base) Ampul.Neb 3 Ml INHALATION 3 ml Q6HRT ALEJANDRA Administration Alprazolam 0.25 mg 05/10/25 15:26 Alprazolam (*Crx) 0.25 Mg Tablet PO QHS PRN Anxiety Azithromycin 250 mg 05/13/25 09:00 05/13/25 09:04 Azithromycin 250 Mg Tablet PO 05/14/25 09:01 250 mg DAILY ALEJANDRA Administration Dextrose 12.5 gm 05/10/25 12:59 Dextrose 50% 25 Gm/50 Ml Syringe IV PUSH PRN PRN Hypoglycemia Protocol Duloxetine HCl 60 mg 05/10/25 15:30 05/13/25 09:04 Duloxetine Hcl 60 Mg Capsule.Dr PO 60 mg DAILY ALEJANDRA Administration Ezetimibe 10 mg 05/10/25 15:30 05/13/25 09:05 Ezetimibe 10 Mg Tablet PO 10 mg DAILY ALEJANDRA Administration Glucagon 1 mg 05/10/25 12:59 Glucagon For Inj 1 Mg Vial IM PRN PRN Hypoglycemia Protocol Glucose 15 gm 05/10/25 12:59 Glucose Oral Gel 15 Gm Of Glucse In 37.5 Gm Tube PO PRN PRN Hypoglycemia Protocol Guaifenesin 600 mg 05/10/25 21:00 05/13/25 09:04 Guaifenesin 12 Hr 600 Mg Tabcr PO 600 mg Q12HR ALEJANDRA Administration Heparin Sodium (Porcine) 5,000 units 05/10/25 14:00 05/13/25 05:31 Heparin Sodium 5,000 Units/Ml Vial SUB-Q 5,000 units Q8HR ALEJANDRA Administration Hydrochlorothiazide 12.5 mg 05/10/25 15:35 05/11/25 08:38 Hydrochlorothiazide 12.5 Mg Capsule PO 12.5 mg On Hold: 05/11/25 20:09 QAM ALEJANDRA Administration Dextrose 1,000 mls @ 100 mls/hr 05/10/25 12:59 Dextrose 5% 1,000 Ml IVPB PRN PRN Hypoglycemia Protocol Ceftriaxone Sodium 2 gm/ 100 mls @ 200 mls/hr 05/13/25 12:00 05/13/25 12:06 Sodium Chloride IVPB 200 mls/hr Q24H ALEJANDRA Administration Insulin Aspart 3 - 6 units 05/10/25 17:00 05/13/25 12:03 Insulin Aspart (*Bkc) 100 Units/Ml SUB-Q 3 units TIDWM ALEJANDRA Administration Protocol Insulin Glargine 9 units 05/11/25 21:00 05/12/25 21:12 Insulin Glargine (*Bkc) 100 Units/Ml SUB-Q 9 units HS ALEJANDRA Administration Losartan Potassium 50 mg 05/10/25 15:35 05/11/25 08:38 Losartan Potassium 50 Mg Tablet PO 50 mg On Hold: 05/11/25 20:09 QAM ALEJANDRA Administration Metoprolol Succinate 25 mg 05/10/25 15:30 05/13/25 09:04 Metoprolol Succinate Ext Rel 25 Mg Tabcr PO 25 mg DAILY ALEJANDRA Administration Pantoprazole Sodium 40 mg 05/10/25 15:30 05/13/25 09:04 Pantoprazole 40 Mg Tablet PO 40 mg QAM ALEJANDRA Administration Radiology Results: ITS Impressions Chest X-Ray 05/10/25 08:16 Impression: 1: Pleural-based left posterior chest mass. Follow-up CT chest recommended with contrast for further characterization. Chest CT 05/10/25 10:32 IMPRESSION: 1. Mild emphysema with consolidation involving the majority of the left lower lobe without associated volume loss and with appearance most consistent with pneumonia. 2. Indeterminate 1.9 x 1.8 cm nodule in the left upper lobe which could represent additional pneumonia. Recommend 6-12 week follow-up following treatment to assess for resolution. Labs Labs: Laboratory Results - last 24 hr 05/12/25 05/12/25 05/13/25 16:32 19:41 05:05 WBC 8.7 RBC 3.40 L Hgb 10.1 L Hct 30.3 L MCV 89.1 MCH 29.7 MCHC 33.3 RDW 12.5 Plt Count 274 MPV 9.7 Sodium 133 L Potassium 3.2 L Chloride 99 Carbon Dioxide 28 Anion Gap 6 BUN 14 Creatinine 0.59 L Estim Creat Clear Calc 85 Estimated GFR > 60 Glucose 182 H POC Capillary Glucose 252 H 235 H Calcium 9.8 05/13/25 05/13/25 07:27 11:06 WBC RBC Hgb Hct MCV MCH MCHC RDW Plt Count MPV Sodium Potassium Chloride Carbon Dioxide Anion Gap BUN Creatinine Estim Creat Clear Calc Estimated GFR Glucose POC Capillary Glucose 199 H 246 H Calcium
[2025-05-13] MEDS: INSULIN GLARGINE (*BKC) 100 UNITS/ML 12 UNITS SUB-Q (22:08)
[2025-05-14] VITALS (13 sets, daily range): BP systolic 116–136; BP diastolic 50–77; PULSE 77–86; RESP 16–18; TEMP 36.1–36.6; O2SAT 96–98
[2025-05-14] MEDS: IPRATROPIUM 0.5 MG/ALBUTEROL SULFATE 2.5 MG (BASE) AMPUL.NEB 3 ML INHALATION ×4 (02:16→20:00)
[2025-05-14 06:20] LABS: Hematocrit 31.4 % (37.0-47.0); Hemoglobin 10.3 g/dL (12.0-15.0); Immature Granulocyte Percent A 5.7 % (0-0.5); Lymphocytes Absolute Auto 2.89 K/mm3 (0.9-3.2); Mean Corpuscular HGB Conc 32.8 g/dl (32-36); Mean Corpuscular Hemoglobin 29.3 pg (26-34); Mean Corpuscular Volume 89.5 fl (80-100); Nucleated Red Blood Cells Absolute Auto 0.030 K/mm3 (0.0-0.012); Nucleated Red Blood Cells Perc 0.3 % (0.0-0.2); Platelet Count Result 310 k/mm3 (150-375); Red Blood Count 3.51 M/mm3 (4.2-5.4); White Blood Count 9.2 K/mm3 (4.5-10.0)
[2025-05-14 06:47] LABS: Ovalocytes Occasional; Tear Drop Cells Occasional
[2025-05-14 06:48] LABS: Schistocytes None Seen; Toxic Granulation Present
[2025-05-14 07:02] LABS: Albumin Level 2.8 g/dL (3.5-5.1); Anion Gap 9 mmol/L (4-12); Blood Urea Nitrogen 12 mg/dL (7-17); Calcium 9.6 mg/dL (8.4-10.2); Carbon Dioxide 22 mmol/L (22-30); Chloride 103 mmol/L (98-107); Estimated CRCL calculation 90 ml/min; Estimated Glomerular Filt Rate > 60; Glucose 211 mg/dL (65-110); Magnesium 1.5 mg/dL (1.6-2.3); Potassium 3.8 mmol/L (3.4-5.0); Sodium 134 mmol/L (137-145)
[2025-05-14] MEDS: EZETIMIBE 10 MG TABLET PO (10:33)
[2025-05-14] MEDS: PANTOPRAZOLE 40 MG TABLET PO (10:33)
[2025-05-14] MEDS: DULoxetine HCL 60 MG CAPSULE.DR PO (10:33)
[2025-05-14] MEDS: METOPROLOL SUCCINATE EXT REL 25 MG TABCR PO (10:33)
[2025-05-14] MEDS: guaiFENesin 12 HR 600 MG TABCR PO ×2 (10:34→21:07)
[2025-05-14] MEDS: AZITHROMYCIN 250 MG TABLET PO (10:34)
--- NOTE | 2025-05-14 12:06 | PM.IMPN ---
Progress Note: A&P Assessment and Plan (1) Sepsis: Code(s): A41.9 - Sepsis, unspecified organism Status: Acute Assessment and Plan: Patient presents with 1 week increasing shortness of breath and weakness. Sepsis present on admission with WBC 18, ESR 125, CRP > 45.0, low grade fever, tachycardia, tachypnea with lactic acidosis to 4.2. PCT 4. Chest CT reveals LLL consolidation without associated volume loss consistent with pneumonia. Minimal left pleural effusion. Right lung clear. MRSA PCR negative. Viral PCR negative BCx (05/10) NGTD Legionella Ag and Strept Ag pending UA without signs of infection Vital signs stable. WBC normal. Remains on room air. Continue with azithromycin, ceftriaxone, vancomycin on 05/10, Rocephin increase to 2 g 05/12. Vancomycin discontinued Will get respiratory panel Continue Mucinex and Duonebs. Increase activity. PT/OT. Follow up on Cx. (2) Pneumonia: Qualifiers: Laterality: left Lung location: unspecified part of lung Pneumonia type: due to unspecified organism Qualified Code(s): J18.9 - Pneumonia, unspecified organism Code(s): J18.9 - Pneumonia, unspecified organism Status: Acute Assessment and Plan: As above (3) Pulmonary nodule: Code(s): R91.1 - Solitary pulmonary nodule Status: Acute Assessment and Plan: CT chest also shows an indeterminate 1.9 x 1.8 cm nodule in the left upper lobe which could represent additional pneumonia. Patient was made aware. Will need repeat imaging as an outpatient to ensure clearance (4) Type 2 diabetes mellitus with diabetic neuropathy, without long-term current use of insulin: Code(s): E11.40 - Type 2 diabetes mellitus with diabetic neuropathy, unspecified Status: Chronic Assessment and Plan: A1c 9.4%. Glucose poorly controlled Continue AccuCheks covering with sliding scale. Hypoglycemia protocol available as needed. Advance Lantus (5) Essential hypertension: Code(s): I10 - Essential (primary) hypertension Status: Chronic Assessment and Plan: Blood pressure stable Will continue metoprolol but continued to hold HTCZ and Losartan. Resume meds as blood pressure allows during acute illness (6) Anxiety and depression: Code(s): F41.9 - Anxiety disorder, unspecified; F32.A - Depression, unspecified Status: Chronic Assessment and Plan: Mood stable. Continue alprazolam p.r.n., duloxetine daily Plan DVT prophylaxis: Heparin subcutaneous Code status: Full Subjective Date/time seen: 05/14/25 12:06 Interval history: Patient feels sleepy and weak. Still has cough. Shortness of breath with exertion. Remains afebrile. Review of Systems Review of Systems: All systems reviewed & are unremarkable except as noted in HPI and below Exam Narrative: Gen - NARD lying flat in bed Chest - left mid and lower lung field inspiratory crackles with improved air movement. CV - RRR S1/S2 Abd - Soft, NT/ND, Positive BS Ext - No pedal edema Psych - Nml mood and affect Skin - Warm and dry Objective Data Vital Signs Vital Signs: Vital Signs - 24 hr 05/13/25 13:59 05/13/25 14:00 05/13/25 14:04 Temperature 97.9 F Pulse Rate 83 81 77 Respiratory Rate 17 22 H 17 Blood Pressure 134/74 Pulse Oximetry 98 Oxygen Delivery 05/13/25 20:22 05/13/25 20:31 05/13/25 22:00 Temperature 97.4 F L Pulse Rate 77 80 94 Respiratory Rate 16 18 16 Blood Pressure 111/50 L Pulse Oximetry 97 Oxygen Delivery 05/14/25 02:16 05/14/25 02:24 05/14/25 06:00 Temperature 97.4 F L Pulse Rate 83 77 82 Respiratory Rate 18 18 16 Blood Pressure 136/77 Pulse Oximetry 97 Oxygen Delivery 05/14/25 07:21 05/14/25 07:22 05/14/25 07:29 Temperature Pulse Rate 77 78 Respiratory Rate 18 18 Blood Pressure Pulse Oximetry 96 Oxygen Delivery Room Air 05/14/25 10:46 05/14/25 11:02 Temperature Pulse Rate Respiratory Rate Blood Pressure Pulse Oximetry Oxygen Delivery Room Air Room Air Intake/Output Intake/Output: Intake & Output 05/11/25 05/12/25 05/13/25 05/14/25 23:59 23:59 23:59 23:59 Intake Total 3635 1670 1180 540 Output Total 1700 Balance 1935 1670 1180 540 Meds/Results Medications: Active Medications Generic Name Dose Route Start Last Admin Trade Name Freq PRN Reason Stop Dose Admin Acetaminophen 650 mg 05/10/25 22:23 Acetaminophen 325 Mg Tablet PO Q6H PRN Mild Pain (1-3) or Fever Albuterol/Ipratropium 3 ml 05/10/25 20:00 05/14/25 07:21 Ipratropium 0.5 Mg/Albuterol Sulfate 2.5 Mg (Base) Ampul.Neb 3 Ml INHALATION 3 ml Q6HRT ALEJANDRA Administration Alprazolam 0.25 mg 05/10/25 15:26 Alprazolam (*Crx) 0.25 Mg Tablet PO QHS PRN Anxiety Dextrose 12.5 gm 05/10/25 12:59 Dextrose 50% 25 Gm/50 Ml Syringe IV PUSH PRN PRN Hypoglycemia Protocol Duloxetine HCl 60 mg 05/10/25 15:30 05/14/25 10:33 Duloxetine Hcl 60 Mg Capsule.Dr PO 60 mg DAILY ALEJANDRA Administration Ezetimibe 10 mg 05/10/25 15:30 05/14/25 10:33 Ezetimibe 10 Mg Tablet PO 10 mg DAILY ALEJANDRA Administration Glucagon 1 mg 05/10/25 12:59 Glucagon For Inj 1 Mg Vial IM PRN PRN Hypoglycemia Protocol Glucose 15 gm 05/10/25 12:59 Glucose Oral Gel 15 Gm Of Glucse In 37.5 Gm Tube PO PRN PRN Hypoglycemia Protocol Guaifenesin 600 mg 05/10/25 21:00 05/14/25 10:34 Guaifenesin 12 Hr 600 Mg Tabcr PO 600 mg Q12HR ALEJANDRA Administration Heparin Sodium (Porcine) 5,000 units 05/10/25 14:00 05/14/25 05:53 Heparin Sodium 5,000 Units/Ml Vial SUB-Q 5,000 units Q8HR ALEJANDRA Administration Hydrochlorothiazide 12.5 mg 05/10/25 15:35 05/11/25 08:38 Hydrochlorothiazide 12.5 Mg Capsule PO 12.5 mg On Hold: 05/11/25 20:09 QAM ALEJANDRA Administration Dextrose 1,000 mls @ 100 mls/hr 05/10/25 12:59 Dextrose 5% 1,000 Ml IVPB PRN PRN Hypoglycemia Protocol Ceftriaxone Sodium 2 gm/ 100 mls @ 200 mls/hr 05/13/25 12:00 05/13/25 12:36 Sodium Chloride IVPB Infused Q24H ALEJANDRA Infusion Insulin Aspart 3 - 6 units 05/10/25 17:00 05/13/25 17:09 Insulin Aspart (*Bkc) 100 Units/Ml SUB-Q 3 units TIDWM ALEJANDRA Administration Protocol Insulin Glargine 12 units 05/13/25 21:00 05/13/25 22:08 Insulin Glargine (*Bkc) 100 Units/Ml SUB-Q 12 units HS ALEJANDRA Administration Losartan Potassium 50 mg 05/10/25 15:35 05/11/25 08:38 Losartan Potassium 50 Mg Tablet PO 50 mg On Hold: 05/11/25 20:09 QAM ALEJANDRA Administration Metoprolol Succinate 25 mg 05/10/25 15:30 05/14/25 10:33 Metoprolol Succinate Ext Rel 25 Mg Tabcr PO 25 mg DAILY ALEJANDRA Administration Pantoprazole Sodium 40 mg 05/10/25 15:30 05/14/25 10:33 Pantoprazole 40 Mg Tablet PO 40 mg QAM ALEJANDRA Administration Radiology Results: ITS Impressions Chest X-Ray 05/10/25 08:16 Impression: 1: Pleural-based left posterior chest mass. Follow-up CT chest recommended with contrast for further characterization. Chest CT 05/10/25 10:32 IMPRESSION: 1. Mild emphysema with consolidation involving the majority of the left lower lobe without associated volume loss and with appearance most consistent with pneumonia. 2. Indeterminate 1.9 x 1.8 cm nodule in the left upper lobe which could represent additional pneumonia. Recommend 6-12 week follow-up following treatment to assess for resolution. Labs Labs: Laboratory Results - last 24 hr 05/13/25 05/13/25 05/13/25 16:53 19:43 22:11 WBC RBC Hgb Hct MCV MCH MCHC RDW Plt Count MPV Immature Gran % (Auto) Neut % (Auto) Lymph % (Auto) [place] % (Auto) Eos % (Auto) Baso % (Auto) Lymph # (Auto) [place] # (Auto) Eos # (Auto) Baso # (Auto) Abs Immat Gran (auto) Absolute Neuts (auto) Absolute Nucleated RBC Band Neutrophils % Nucleated RBC % Toxic Granulation Platelet Estimate Tear Drop Cells Ovalocytes Schistocytes Sodium Potassium Chloride Carbon Dioxide Anion Gap BUN Creatinine Estim Creat Clear Calc Estimated GFR Glucose POC Capillary Glucose 237 H 224 H 294 H Calcium Phosphorus Magnesium Albumin 05/14/25 05/14/25 05/14/25 06:13 07:42 11:31 WBC 9.2 RBC 3.51 L Hgb 10.3 L Hct 31.4 L MCV 89.5 MCH 29.3 MCHC 32.8 RDW 12.5 Plt Count 310 MPV 9.9 Immature Gran % (Auto) 5.7 H Neut % (Auto) 54.4 Lymph % (Auto) 31.4 [place] % (Auto) 5.8 Eos % (Auto) 2.0 Baso % (Auto) 0.7 Lymph # (Auto) 2.89 [place] # (Auto) 0.5 Eos # (Auto) 0.2 Baso # (Auto) 0.1 Abs Immat Gran (auto) 0.52 H Absolute Neuts (auto) 5.0 Absolute Nucleated RBC 0.030 H Band Neutrophils % Not Reportable Nucleated RBC % 0.3 H Toxic Granulation Present Platelet Estimate Adequate Tear Drop Cells Occasional Ovalocytes Occasional Schistocytes None seen Sodium 134 L Potassium 3.8 Chloride 103 Carbon Dioxide 22 Anion Gap 9 BUN 12 Creatinine 0.55 L Estim Creat Clear Calc 90 Estimated GFR > 60 Glucose 211 H POC Capillary Glucose 187 H 215 H Calcium 9.6 Phosphorus 4.0 Magnesium 1.5 L Albumin 2.8 L
[2025-05-14 13:01] LABS: Procalcitonin 0.8 ng/mL
[2025-05-14] MEDS: cefTRIAXone 2 GM in SODIUM CHLORIDE 0.9% IV 100 ML 200 ML IVPB (13:49)
[2025-05-14] MEDS: MAGNESIUM SULF 2 GM/WATER 50ML 2 GM/50 ML BAG IVPB (13:50)
[2025-05-14] MEDS: INSULIN ASPART (*BKC) 100 UNITS/ML SUB-Q ×2 (13:52→18:07)
[2025-05-14 16:22] LABS: CRP 15.5 mg/dL (<1.0)
[2025-05-14] MEDS: INSULIN GLARGINE (*BKC) 100 UNITS/ML 12 UNITS SUB-Q (21:07)
[2025-05-15] VITALS (11 sets, daily range): BP systolic 134–142; BP diastolic 60–76; PULSE 70–92; RESP 13–20; TEMP 36.5; O2SAT 96–98
[2025-05-15] MEDS: IPRATROPIUM 0.5 MG/ALBUTEROL SULFATE 2.5 MG (BASE) AMPUL.NEB 3 ML INHALATION ×4 (02:21→20:36)
[2025-05-15 06:34] LABS: Hematocrit 32.0 % (37.0-47.0); Hemoglobin 10.4 g/dL (12.0-15.0); Immature Granulocyte Percent A 5.9 % (0-0.5); Lymphocytes Absolute Auto 3.17 K/mm3 (0.9-3.2); Mean Corpuscular HGB Conc 32.5 g/dl (32-36); Mean Corpuscular Hemoglobin 29.4 pg (26-34); Mean Corpuscular Volume 90.4 fl (80-100); Nucleated Red Blood Cells Absolute Auto 0.020 K/mm3 (0.0-0.012); Nucleated Red Blood Cells Perc 0.2 % (0.0-0.2); Platelet Count Result 356 k/mm3 (150-375); Red Blood Count 3.54 M/mm3 (4.2-5.4); White Blood Count 10.7 K/mm3 (4.5-10.0)
[2025-05-15 06:49] LABS: Alanine Aminotransferase 15 U/L (6-35); Albumin Level 3.1 g/dL (3.5-5.1); Alkaline Phosphatase 105 U/L (38-126); Anion Gap 6 mmol/L (4-12); Aspartate Amino Transferase 23 U/L (14-36); Bilirubin,Total 0.4 mg/dL (0.2-1.3); Blood Urea Nitrogen 10 mg/dL (7-17); Calcium 9.7 mg/dL (8.4-10.2); Carbon Dioxide 27 mmol/L (22-30); Chloride 101 mmol/L (98-107); Estimated CRCL calculation 82 ml/min; Estimated Glomerular Filt Rate > 60; Glucose 205 mg/dL (65-110); Magnesium 1.7 mg/dL (1.6-2.3); Potassium 3.9 mmol/L (3.4-5.0); Sodium 134 mmol/L (137-145); Total Protein 6.7 g/dL (6.3-8.2)
[2025-05-15] MEDS: guaiFENesin 12 HR 600 MG TABCR PO ×2 (08:22→20:03)
[2025-05-15] MEDS: PANTOPRAZOLE 40 MG TABLET PO (08:23)
[2025-05-15] MEDS: DULoxetine HCL 60 MG CAPSULE.DR PO (08:23)
[2025-05-15] MEDS: INSULIN ASPART (*BKC) 100 UNITS/ML SUB-Q ×3 (08:23→17:11)
[2025-05-15] MEDS: EZETIMIBE 10 MG TABLET PO (08:23)
[2025-05-15] MEDS: METOPROLOL SUCCINATE EXT REL 25 MG TABCR PO (08:25)
[2025-05-15] MEDS: cefTRIAXone 2 GM in SODIUM CHLORIDE 0.9% IV 100 ML 200 ML IVPB (12:18)
--- NOTE | 2025-05-15 12:21 | PM.IMPN ---
Progress Note: A&P Assessment and Plan (1) Sepsis: Code(s): A41.9 - Sepsis, unspecified organism Status: Acute Assessment and Plan: Patient presents with 1 week increasing shortness of breath and weakness. Sepsis present on admission with WBC 18, ESR 125, CRP > 45.0, low grade fever, tachycardia, tachypnea with lactic acidosis to 4.2. PCT 4. Chest CT reveals LLL consolidation without associated volume loss consistent with pneumonia. Minimal left pleural effusion. Right lung clear. MRSA PCR negative. Viral PCR negative BCx (05/10) NGTD Legionella Ag and Strept Ag pending UA without signs of infection Vital signs stable. WBC normal. Remains on room air. Continue with azithromycin, ceftriaxone, vancomycin on 05/10, Rocephin increase to 2 g 05/12. Vancomycin discontinued Respiratory panel pending CRP and procalcitonin improving Continue Mucinex and Duonebs. Increase activity. PT/OT. Follow up on Cx. (2) Pneumonia: Qualifiers: Laterality: left Lung location: unspecified part of lung Pneumonia type: due to unspecified organism Qualified Code(s): J18.9 - Pneumonia, unspecified organism Code(s): J18.9 - Pneumonia, unspecified organism Status: Acute Assessment and Plan: As above (3) Pulmonary nodule: Code(s): R91.1 - Solitary pulmonary nodule Status: Acute Assessment and Plan: CT chest also shows an indeterminate 1.9 x 1.8 cm nodule in the left upper lobe which could represent additional pneumonia. Patient was made aware. Will need repeat imaging as an outpatient to ensure clearance (4) Type 2 diabetes mellitus with diabetic neuropathy, without long-term current use of insulin: Code(s): E11.40 - Type 2 diabetes mellitus with diabetic neuropathy, unspecified Status: Chronic Assessment and Plan: A1c 9.4%. Glucose poorly controlled Continue AccuCheks covering with sliding scale. Hypoglycemia protocol available as needed. Advance Lantus (5) Essential hypertension: Code(s): I10 - Essential (primary) hypertension Status: Chronic Assessment and Plan: Blood pressure stable Will continue metoprolol but continued to hold HTCZ and Losartan. Resume meds as blood pressure allows during acute illness (6) Anxiety and depression: Code(s): F41.9 - Anxiety disorder, unspecified; F32.A - Depression, unspecified Status: Chronic Assessment and Plan: Mood stable. Continue alprazolam p.r.n., duloxetine daily Plan DVT prophylaxis: Heparin subcutaneous Code status: Full Subjective Date/time seen: 05/15/25 12:21 Interval history: No overnight events. Feels better. Still gets short of breath with exertion. Minimal cough. Review of Systems Review of Systems: All systems reviewed & are unremarkable except as noted in HPI and below Exam Narrative: Gen - NARD lying flat in bed Chest - left mid and lower lung field inspiratory crackles with improved air movement. CV - RRR S1/S2 Abd - Soft, NT/ND, Positive BS Ext - No pedal edema Psych - Nml mood and affect Skin - Warm and dry Objective Data Vital Signs Vital Signs: Vital Signs - 24 hr 05/14/25 13:50 05/14/25 13:57 05/14/25 14:00 Temperature 96.9 F L Pulse Rate 80 80 86 Respiratory Rate 18 18 17 Blood Pressure 116/50 L Pulse Oximetry 97 Oxygen Delivery 05/14/25 20:00 05/14/25 20:00 05/14/25 20:03 Temperature Pulse Rate 77 Respiratory Rate 18 Blood Pressure Pulse Oximetry 97 Oxygen Delivery Room Air Room Air 05/14/25 20:07 05/14/25 20:27 05/15/25 02:21 Temperature 97.9 F Pulse Rate 78 78 76 Respiratory Rate 18 17 20 Blood Pressure 132/60 Pulse Oximetry 98 Oxygen Delivery 05/15/25 02:26 05/15/25 06:00 05/15/25 07:35 Temperature 97.7 F Pulse Rate 79 76 75 Respiratory Rate 18 18 14 Blood Pressure 140/60 Pulse Oximetry 96 Oxygen Delivery 05/15/25 07:35 05/15/25 08:00 05/15/25 08:25 Temperature Pulse Rate 92 Respiratory Rate Blood Pressure Pulse Oximetry 96 Oxygen Delivery Room Air Room Air Intake/Output Intake/Output: Intake & Output 05/12/25 05/13/25 05/14/25 05/15/25 23:59 23:59 23:59 23:59 Intake Total 1670 1180 1420 690 Balance 1670 1180 1420 690 Meds/Results Medications: Active Medications Generic Name Dose Route Start Last Admin Trade Name Freq PRN Reason Stop Dose Admin Acetaminophen 650 mg 05/10/25 22:23 Acetaminophen 325 Mg Tablet PO Q6H PRN Mild Pain (1-3) or Fever Albuterol/Ipratropium 3 ml 05/10/25 20:00 05/15/25 07:33 Ipratropium 0.5 Mg/Albuterol Sulfate 2.5 Mg (Base) Ampul.Neb 3 Ml INHALATION 3 ml Q6HRT ALEJANDRA Administration Alprazolam 0.25 mg 05/10/25 15:26 Alprazolam (*Crx) 0.25 Mg Tablet PO QHS PRN Anxiety Dextrose 12.5 gm 05/10/25 12:59 Dextrose 50% 25 Gm/50 Ml Syringe IV PUSH PRN PRN Hypoglycemia Protocol Duloxetine HCl 60 mg 05/10/25 15:30 05/15/25 08:23 Duloxetine Hcl 60 Mg Capsule.Dr PO 60 mg DAILY ALEJANDRA Administration Ezetimibe 10 mg 05/10/25 15:30 05/15/25 08:23 Ezetimibe 10 Mg Tablet PO 10 mg DAILY ALEJANDRA Administration Glucagon 1 mg 05/10/25 12:59 Glucagon For Inj 1 Mg Vial IM PRN PRN Hypoglycemia Protocol Glucose 15 gm 05/10/25 12:59 Glucose Oral Gel 15 Gm Of Glucse In 37.5 Gm Tube PO PRN PRN Hypoglycemia Protocol Guaifenesin 600 mg 05/10/25 21:00 05/15/25 08:22 Guaifenesin 12 Hr 600 Mg Tabcr PO 600 mg Q12HR ALEJANDRA Administration Heparin Sodium (Porcine) 5,000 units 05/10/25 14:00 05/15/25 05:47 Heparin Sodium 5,000 Units/Ml Vial SUB-Q 5,000 units Q8HR ALEJANDRA Administration Hydrochlorothiazide 12.5 mg 05/10/25 15:35 05/11/25 08:38 Hydrochlorothiazide 12.5 Mg Capsule PO 12.5 mg On Hold: 05/11/25 20:09 QAM ALEJANDRA Administration Dextrose 1,000 mls @ 100 mls/hr 05/10/25 12:59 Dextrose 5% 1,000 Ml IVPB PRN PRN Hypoglycemia Protocol Ceftriaxone Sodium 2 gm/ 100 mls @ 200 mls/hr 05/13/25 12:00 05/15/25 12:18 Sodium Chloride IVPB 200 mls/hr Q24H ALEJANDRA Administration Insulin Aspart 3 - 6 units 05/10/25 17:00 05/15/25 08:23 Insulin Aspart (*Bkc) 100 Units/Ml SUB-Q 3 units TIDWM ALEJANDRA Administration Protocol Insulin Glargine 12 units 05/13/25 21:00 05/14/25 21:07 Insulin Glargine (*Bkc) 100 Units/Ml SUB-Q 12 units HS ALEJANDRA Administration Losartan Potassium 50 mg 05/10/25 15:35 05/11/25 08:38 Losartan Potassium 50 Mg Tablet PO 50 mg On Hold: 05/11/25 20:09 QAM ALEJANDRA Administration Metoprolol Succinate 25 mg 05/10/25 15:30 05/15/25 08:25 Metoprolol Succinate Ext Rel 25 Mg Tabcr PO 25 mg DAILY ALEJANDRA Administration Pantoprazole Sodium 40 mg 05/10/25 15:30 05/15/25 08:23 Pantoprazole 40 Mg Tablet PO 40 mg QAM ALEJANDRA Administration Radiology Results: ITS Impressions Chest X-Ray 05/10/25 08:16 Impression: 1: Pleural-based left posterior chest mass. Follow-up CT chest recommended with contrast for further characterization. Chest CT 05/10/25 10:32 IMPRESSION: 1. Mild emphysema with consolidation involving the majority of the left lower lobe without associated volume loss and with appearance most consistent with pneumonia. 2. Indeterminate 1.9 x 1.8 cm nodule in the left upper lobe which could represent additional pneumonia. Recommend 6-12 week follow-up following treatment to assess for resolution. Labs Labs: Laboratory Results - last 24 hr 05/14/25 05/14/25 05/14/25 06:13 16:13 19:48 WBC RBC Hgb Hct MCV MCH MCHC RDW Plt Count MPV Immature Gran % (Auto) Neut % (Auto) Lymph % (Auto) [place] % (Auto) Eos % (Auto) Baso % (Auto) Lymph # (Auto) [place] # (Auto) Eos # (Auto) Baso # (Auto) Abs Immat Gran (auto) Absolute Neuts (auto) Absolute Nucleated RBC Nucleated RBC % Sodium Potassium Chloride Carbon Dioxide Anion Gap BUN Creatinine Estim Creat Clear Calc Estimated GFR Glucose POC Capillary Glucose 251 H 219 H Calcium Magnesium Total Bilirubin AST ALT Alkaline Phosphatase C-Reactive Protein 15.5 H Total Protein Albumin Procalcitonin 0.8 05/15/25 05/15/25 05/15/25 06:03 07:35 11:19 WBC 10.7 H RBC 3.54 L Hgb 10.4 L Hct 32.0 L MCV 90.4 MCH 29.4 MCHC 32.5 RDW 12.4 Plt Count 356 MPV 9.5 Immature Gran % (Auto) 5.9 H Neut % (Auto) 57.2 Lymph % (Auto) 29.7 [place] % (Auto) 5.1 Eos % (Auto) 1.6 Baso % (Auto) 0.5 Lymph # (Auto) 3.17 [place] # (Auto) 0.5 Eos # (Auto) 0.2 Baso # (Auto) 0.1 Abs Immat Gran (auto) 0.63 H Absolute Neuts (auto) 6.1 Absolute Nucleated RBC 0.020 H Nucleated RBC % 0.2 Sodium 134 L Potassium 3.9 Chloride 101 Carbon Dioxide 27 Anion Gap 6 BUN 10 Creatinine 0.61 L Estim Creat Clear Calc 82 Estimated GFR > 60 Glucose 205 H POC Capillary Glucose 234 H 231 H Calcium 9.7 Magnesium 1.7 Total Bilirubin 0.4 AST 23 ALT 15 Alkaline Phosphatase 105 C-Reactive Protein Total Protein 6.7 Albumin 3.1 L Procalcitonin
[2025-05-15] MEDS: INSULIN GLARGINE (*BKC) 100 UNITS/ML 12 UNITS SUB-Q (20:02)
[2025-05-16] VITALS (12 sets, daily range): BP systolic 118–136; BP diastolic 72–75; PULSE 71–79; RESP 16–18; TEMP 36.4–36.6; O2SAT 92–100
[2025-05-16] MEDS: IPRATROPIUM 0.5 MG/ALBUTEROL SULFATE 2.5 MG (BASE) AMPUL.NEB 3 ML INHALATION ×4 (01:16→21:18)
[2025-05-16 06:31] LABS: Hematocrit 31.2 % (37.0-47.0); Hemoglobin 10.2 g/dL (12.0-15.0); Immature Granulocyte Percent A 5.5 % (0-0.5); Lymphocytes Absolute Auto 2.82 K/mm3 (0.9-3.2); Mean Corpuscular HGB Conc 32.7 g/dl (32-36); Mean Corpuscular Hemoglobin 29.5 pg (26-34); Mean Corpuscular Volume 90.2 fl (80-100); Nucleated Red Blood Cells Absolute Auto 0.030 K/mm3 (0.0-0.012); Nucleated Red Blood Cells Perc 0.3 % (0.0-0.2); Platelet Count Result 387 k/mm3 (150-375); Red Blood Count 3.46 M/mm3 (4.2-5.4); White Blood Count 10.9 K/mm3 (4.5-10.0)
[2025-05-16 06:56] LABS: Alanine Aminotransferase 17 U/L (6-35); Albumin Level 3.1 g/dL (3.5-5.1); Alkaline Phosphatase 103 U/L (38-126); Anion Gap 5 mmol/L (4-12); Aspartate Amino Transferase 25 U/L (14-36); Bilirubin,Total 0.4 mg/dL (0.2-1.3); Blood Urea Nitrogen 8 mg/dL (7-17); CRP 5.4 mg/dL (<1.0); Calcium 9.6 mg/dL (8.4-10.2); Carbon Dioxide 26 mmol/L (22-30); Chloride 105 mmol/L (98-107); Estimated CRCL calculation 81 ml/min; Estimated Glomerular Filt Rate > 60; Glucose 202 mg/dL (65-110); Magnesium 1.5 mg/dL (1.6-2.3); Potassium 3.4 mmol/L (3.4-5.0); Sodium 136 mmol/L (137-145); Total Protein 6.9 g/dL (6.3-8.2)
[2025-05-16 07:07] LABS: Procalcitonin 0.4 ng/mL
[2025-05-16] MEDS: guaiFENesin 12 HR 600 MG TABCR PO ×2 (09:45→20:32)
[2025-05-16] MEDS: DULoxetine HCL 60 MG CAPSULE.DR PO (09:46)
[2025-05-16] MEDS: METOPROLOL SUCCINATE EXT REL 25 MG TABCR PO (09:46)
[2025-05-16] MEDS: EZETIMIBE 10 MG TABLET PO (09:46)
[2025-05-16] MEDS: PANTOPRAZOLE 40 MG TABLET PO (09:46)
--- NOTE | 2025-05-16 11:46 | P.PNIM_ITS ---
Progress Note: A&P Assessment and Plan (1) Sepsis: Code(s): A41.9 - Sepsis, unspecified organism Status: Acute Assessment and Plan: Patient presents with 1 week increasing shortness of breath and weakness. Sepsis present on admission with WBC 18, ESR 125, CRP > 45.0, low grade fever, tachycardia, tachypnea with lactic acidosis to 4.2. PCT 4. Chest CT reveals LLL consolidation without associated volume loss consistent with pneumonia. Minimal left pleural effusion. Right lung clear. MRSA PCR negative. Viral PCR negative BCx (05/10) NGTD Legionella Ag and Strept Ag pending UA without signs of infection Vital signs stable. WBC normal. Remains on room air. Continue with azithromycin, ceftriaxone, vancomycin on 05/10, Rocephin increase to 2 g 05/12. Vancomycin discontinued Respiratory panel pending CRP and procalcitonin improving Continue Mucinex and Duonebs. Increase activity. PT/OT. Follow up on Cx. (2) Pneumonia: Qualifiers: Laterality: left Lung location: unspecified part of lung Pneumonia type: due to unspecified organism Qualified Code(s): J18.9 - Pneumonia, unspecified organism Code(s): J18.9 - Pneumonia, unspecified organism Status: Acute Assessment and Plan: As above Repeat chest x-ray with improvement (3) Pulmonary nodule: Code(s): R91.1 - Solitary pulmonary nodule Status: Acute Assessment and Plan: CT chest also shows an indeterminate 1.9 x 1.8 cm nodule in the left upper lobe which could represent additional pneumonia. Patient was made aware. Will need repeat imaging as an outpatient to ensure clearance (4) Type 2 diabetes mellitus with diabetic neuropathy, without long-term current use of insulin: Code(s): E11.40 - Type 2 diabetes mellitus with diabetic neuropathy, unspecified Status: Chronic Assessment and Plan: A1c 9.4%. Glucose poorly controlled Continue AccuCheks covering with sliding scale. Hypoglycemia protocol available as needed. Advance Lantus (5) Essential hypertension: Code(s): I10 - Essential (primary) hypertension Status: Chronic Assessment and Plan: Blood pressure stable Will continue metoprolol but continued to hold HTCZ and Losartan. Resume meds as blood pressure allows during acute illness (6) Anxiety and depression: Code(s): F41.9 - Anxiety disorder, unspecified; F32.A - Depression, unspecified Status: Chronic Assessment and Plan: Mood stable. Continue alprazolam p.r.n., duloxetine daily Plan DVT prophylaxis: Heparin subcutaneous Code status: Full Subjective Date/time seen: 05/16/25 11:46 Interval history: No overnight events. Feels tired. Overall better less cough. Review of Systems Review of Systems: All systems reviewed & are unremarkable except as noted in HPI and below Exam Narrative: Gen - NARD lying flat in bed Chest - left mid and lower lung field inspiratory crackles with improved air movement. CV - RRR S1/S2 Abd - Soft, NT/ND, Positive BS Ext - No pedal edema Psych - Nml mood and affect Skin - Warm and dry Objective Data Vital Signs Vital Signs: Vital Signs - 24 hr 05/15/25 13:43 05/15/25 13:49 05/15/25 14:00 Temperature 97.7 F Pulse Rate 70 73 92 Respiratory Rate 13 15 14 Blood Pressure 134/75 Pulse Oximetry 98 Oxygen Delivery 05/15/25 20:30 05/15/25 20:38 05/15/25 20:38 Temperature 97.7 F Pulse Rate 83 72 Respiratory Rate 17 16 Blood Pressure 142/76 H Pulse Oximetry 98 98 Oxygen Delivery Room Air 05/15/25 20:43 05/16/25 01:17 05/16/25 01:23 Temperature Pulse Rate 74 76 77 Respiratory Rate 16 16 16 Blood Pressure Pulse Oximetry Oxygen Delivery 05/16/25 06:00 05/16/25 07:15 05/16/25 07:15 Temperature 97.8 F Pulse Rate 79 76 Respiratory Rate 16 18 Blood Pressure 122/75 Pulse Oximetry 96 92 Oxygen Delivery Room Air 05/16/25 07:21 Temperature Pulse Rate 74 Respiratory Rate 18 Blood Pressure Pulse Oximetry Oxygen Delivery Intake/Output Intake/Output: Intake & Output 05/13/25 05/14/25 05/15/25 05/16/25 23:59 23:59 23:59 23:59 Intake Total 1180 1420 1288 398 Balance 1180 1420 1288 398 Meds/Results Medications: Active Medications Generic Name Dose Route Start Last Admin Trade Name Freq PRN Reason Stop Dose Admin Acetaminophen 650 mg 05/10/25 22:23 Acetaminophen 325 Mg Tablet PO Q6H PRN Mild Pain (1-3) or Fever Albuterol/Ipratropium 3 ml 05/10/25 20:00 05/16/25 07:14 Ipratropium 0.5 Mg/Albuterol Sulfate 2.5 Mg (Base) Ampul.Neb 3 Ml INHALATION 3 ml Q6HRT ALEJANDRA Administration Alprazolam 0.25 mg 05/10/25 15:26 Alprazolam (*Crx) 0.25 Mg Tablet PO QHS PRN Anxiety Dextrose 12.5 gm 05/10/25 12:59 Dextrose 50% 25 Gm/50 Ml Syringe IV PUSH PRN PRN Hypoglycemia Protocol Duloxetine HCl 60 mg 05/10/25 15:30 05/16/25 09:46 Duloxetine Hcl 60 Mg Capsule.Dr PO 60 mg DAILY ALEJANDRA Administration Ezetimibe 10 mg 05/10/25 15:30 05/16/25 09:46 Ezetimibe 10 Mg Tablet PO 10 mg DAILY ALEJANDRA Administration Glucagon 1 mg 05/10/25 12:59 Glucagon For Inj 1 Mg Vial IM PRN PRN Hypoglycemia Protocol Glucose 15 gm 05/10/25 12:59 Glucose Oral Gel 15 Gm Of Glucse In 37.5 Gm Tube PO PRN PRN Hypoglycemia Protocol Guaifenesin 600 mg 05/10/25 21:00 05/16/25 09:45 Guaifenesin 12 Hr 600 Mg Tabcr PO 600 mg Q12HR ALEJANDRA Administration Heparin Sodium (Porcine) 5,000 units 05/10/25 14:00 05/16/25 05:56 Heparin Sodium 5,000 Units/Ml Vial SUB-Q 5,000 units Q8HR ALEJANDRA Administration Hydrochlorothiazide 12.5 mg 05/10/25 15:35 05/11/25 08:38 Hydrochlorothiazide 12.5 Mg Capsule PO 12.5 mg On Hold: 05/11/25 20:09 QAM ALEJANDRA Administration Dextrose 1,000 mls @ 100 mls/hr 05/10/25 12:59 Dextrose 5% 1,000 Ml IVPB PRN PRN Hypoglycemia Protocol Insulin Aspart 3 - 6 units 05/10/25 17:00 05/16/25 09:46 Insulin Aspart (*Bkc) 100 Units/Ml SUB-Q Not Given TIDWM ALEJANDRA Protocol Insulin Glargine 12 units 05/13/25 21:00 05/15/25 20:02 Insulin Glargine (*Bkc) 100 Units/Ml SUB-Q 12 units HS ALEJANDRA Administration Levofloxacin 750 mg 05/15/25 12:40 05/16/25 09:46 Levofloxacin 750 Mg Tablet PO 750 mg DAILY ALEJANDRA Administration Losartan Potassium 50 mg 05/10/25 15:35 05/11/25 08:38 Losartan Potassium 50 Mg Tablet PO 50 mg On Hold: 05/11/25 20:09 QAM ALEJANDRA Administration Metoprolol Succinate 25 mg 05/10/25 15:30 05/16/25 09:46 Metoprolol Succinate Ext Rel 25 Mg Tabcr PO 25 mg DAILY ALEJANDRA Administration Pantoprazole Sodium 40 mg 05/10/25 15:30 05/16/25 09:46 Pantoprazole 40 Mg Tablet PO 40 mg QAM ALEJANDRA Administration Radiology Results: ITS Impressions Chest CT 05/10/25 10:32 IMPRESSION: 1. Mild emphysema with consolidation involving the majority of the left lower lobe without associated volume loss and with appearance most consistent with pneumonia. 2. Indeterminate 1.9 x 1.8 cm nodule in the left upper lobe which could represent additional pneumonia. Recommend 6-12 week follow-up following treatment to assess for resolution. Chest X-Ray 05/15/25 14:09 Impression: Left-sided posterior probable pneumonia. The findings appear improved compared t o the previous study. Labs Labs: Laboratory Results - last 24 hr 05/15/25 05/15/25 05/16/25 16:18 19:49 06:12 WBC 10.9 H RBC 3.46 L Hgb 10.2 L Hct 31.2 L MCV 90.2 MCH 29.5 MCHC 32.7 RDW 12.5 Plt Count 387 H MPV 9.5 Immature Gran % (Auto) 5.5 H Neut % (Auto) 62.3 Lymph % (Auto) 25.8 [place] % (Auto) 4.3 Eos % (Auto) 1.7 Baso % (Auto) 0.4 Lymph # (Auto) 2.82 [place] # (Auto) 0.5 Eos # (Auto) 0.2 Baso # (Auto) 0.0 Abs Immat Gran (auto) 0.60 H Absolute Neuts (auto) 6.8 H Absolute Nucleated RBC 0.030 H Nucleated RBC % 0.3 H Sodium 136 L Potassium 3.4 Chloride 105 Carbon Dioxide 26 Anion Gap 5 BUN 8 Creatinine 0.62 L Estim Creat Clear Calc 81 Estimated GFR > 60 Glucose 202 H POC Capillary Glucose 252 H 217 H Calcium 9.6 Magnesium 1.5 L Total Bilirubin 0.4 AST 25 ALT 17 Alkaline Phosphatase 103 C-Reactive Protein 5.4 H Total Protein 6.9 Albumin 3.1 L Procalcitonin 0.4
[2025-05-16] MEDS: MAGNESIUM SULF 2 GM/WATER 50ML 2 GM/50 ML BAG IVPB (13:32)
[2025-05-16] MEDS: INSULIN ASPART (*BKC) 100 UNITS/ML SUB-Q (17:45)
[2025-05-16] MEDS: INSULIN GLARGINE (*BKC) 100 UNITS/ML 12 UNITS SUB-Q (20:33)
[2025-05-17] VITALS (9 sets, daily range): BP systolic 128–156; BP diastolic 75–76; PULSE 70–83; RESP 14–20; TEMP 36.3; O2SAT 97–98; BMI 31.8
[2025-05-17] MEDS: IPRATROPIUM 0.5 MG/ALBUTEROL SULFATE 2.5 MG (BASE) AMPUL.NEB 3 ML INHALATION ×3 (01:50→13:42)
[2025-05-17 05:40] LABS: Hematocrit 33.2 % (37.0-47.0); Hemoglobin 10.7 g/dL (12.0-15.0); Immature Granulocyte Percent A 4.6 % (0-0.5); Lymphocytes Absolute Auto 2.46 K/mm3 (0.9-3.2); Mean Corpuscular HGB Conc 32.2 g/dl (32-36); Mean Corpuscular Hemoglobin 29.4 pg (26-34); Mean Corpuscular Volume 91.2 fl (80-100); Nucleated Red Blood Cells Absolute Auto 0.000 K/mm3 (0.0-0.012); Nucleated Red Blood Cells Perc 0.0 % (0.0-0.2); Platelet Count Result 383 k/mm3 (150-375); Red Blood Count 3.64 M/mm3 (4.2-5.4); White Blood Count 9.6 K/mm3 (4.5-10.0)
[2025-05-17 06:35] LABS: Alanine Aminotransferase 13 U/L (6-35); Albumin Level 3.2 g/dL (3.5-5.1); Alkaline Phosphatase 103 U/L (38-126); Anion Gap 5 mmol/L (4-12); Aspartate Amino Transferase 25 U/L (14-36); Bilirubin,Total 0.5 mg/dL (0.2-1.3); Blood Urea Nitrogen 6 mg/dL (7-17); Calcium 9.8 mg/dL (8.4-10.2); Carbon Dioxide 27 mmol/L (22-30); Chloride 104 mmol/L (98-107); Estimated CRCL calculation 83 ml/min; Estimated Glomerular Filt Rate > 60; Glucose 227 mg/dL (65-110); Magnesium 1.7 mg/dL (1.6-2.3); Potassium 3.7 mmol/L (3.4-5.0); Sodium 136 mmol/L (137-145); Total Protein 6.9 g/dL (6.3-8.2)
[2025-05-17] MEDS: guaiFENesin 12 HR 600 MG TABCR PO (08:49)
[2025-05-17] MEDS: PANTOPRAZOLE 40 MG TABLET PO (08:49)
[2025-05-17] MEDS: DULoxetine HCL 60 MG CAPSULE.DR PO (08:49)
[2025-05-17] MEDS: METOPROLOL SUCCINATE EXT REL 25 MG TABCR PO (08:50)
[2025-05-17] MEDS: EZETIMIBE 10 MG TABLET PO (08:50)
--- NOTE | 2025-05-17 10:54 | PCNWS ---
Weekly nutritional screen. Patient is tolerating current heart healthy diet with adequate intake 50-75%. No weight loss reported. Pt states appetite is improving since admission, does not wish to have any supplements. No nutritional needs at this time.
[2025-05-17] MEDS: INSULIN ASPART (*BKC) 100 UNITS/ML SUB-Q (11:59)
--- NOTE | 2025-05-17 13:52 | P.DS_ITS ---
DS: Admitting Diagnosis Discharge Date 05/17/2025 Admitting Diagnosis Shortness of breath DS: Discharge Diagnosis Discharge Diagnosis (1) Sepsis: Code(s): A41.9 - Sepsis, unspecified organism Status: Acute (2) Pneumonia: Qualifiers: Laterality: left Lung location: unspecified part of lung Pneumonia type: due to unspecified organism Qualified Code(s): J18.9 - Pneumonia, uns pecified organism Code(s): J18.9 - Pneumonia, unspecified organism Status: Acute (3) Pulmonary nodule: Code(s): R91.1 - Solitary pulmonary nodule Status: Acute (4) Type 2 diabetes mellitus with diabetic neuropathy, without long-term current use of insulin: Code(s): E11.40 - Type 2 diabetes mellitus with diabetic neuropathy, unspecified Status: Chronic (5) Essential hypertension: Code(s): I10 - Essential (primary) hypertension Status: Chronic (6) Anxiety and depression: Code(s): F41.9 - Anxiety disorder, unspecified; F32.A - Depression, unspecified Status: Chronic DS: Summary Hospital Course Hospital Course: # Sepsis: Patient presents with 1 week increasing shortness of breath and weakness. Sepsis present on admission with WBC 18, ESR 125, CRP > 45.0, low grade fever, tachycardia, tachypnea with lactic acidosis to 4.2. PCT 4. Chest CT reveals LLL consolidation without associated volume loss consistent with pneumonia. Minimal left pleural effusion. Right lung clear. MRSA PCR negative. Viral PCR negative BCx (05/10) NGTD Legionella Ag and Strept Ag pending UA without signs of infection Vital signs stable. WBC normal. Remains on room air. Continue with azithromycin, ceftriaxone, vancomycin on 05/10, Rocephin increase to 2 g 05/12. Vancomycin discontinued Respiratory panel negative CRP and procalcitonin improving Continue Mucinex and Duonebs. Switched antibiotic to levofloxacin Increase activity. PT/OT. Follow up on Cx. # Pneumonia: As above Repeat chest x-ray with improvement # Pulmonary nodule: CT chest also shows an indeterminate 1.9 x 1.8 cm nodule in the left upper lobe which could represent additional pneumonia. Patient was made aware. Will need repeat imaging as an outpatient to ensure clearance # Type 2 diabetes mellitus with diabetic neuropathy, without long-term current use of insulin: A1c 9.4%. Glucose poorly controlled Continue AccuCheks covering with sliding scale. Hypoglycemia protocol available as needed. Advance Lantus # Essential hypertension: Blood pressure stable Will continue metoprolol but continued to hold HTCZ and Losartan. Resume meds as blood pressure allows during acute illness # Anxiety and depression: Mood stable. 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 CV - RRR S1/S2 Abd - Soft, NT/ND, Positive BS Ext - No pedal edema Psych - Nml mood and affect Skin - Warm and dry DS: Data Data Completed and Pending Labs on day of discharge: Labs from last 24 hours 05/17/25 05/17/25 05/17/25 11:13 07:25 06:10 WBC RBC Hgb Hct MCV MCH MCHC RDW Plt Count MPV Immature Gran % (Auto) Neut % (Auto) Lymph % (Auto) [place] % (Auto) Eos % (Auto) Baso % (Auto) Lymph # (Auto) [place] # (Auto) Eos # (Auto) Baso # (Auto) Abs Immat Gran (auto) Absolute Neuts (auto) Absolute Nucleated RBC Nucleated RBC % Sodium 136 L Potassium 3.7 Chloride 104 Carbon Dioxide 27 Anion Gap 5 BUN 6 L Creatinine 0.60 L Estim Creat Clear Calc 83 Estimated GFR > 60 Glucose 227 H POC Capillary Glucose 243 H 190 H Calcium 9.8 Magnesium 1.7 Total Bilirubin 0.5 AST 25 ALT 13 Alkaline Phosphatase 103 Total Protein 6.9 Albumin 3.2 L Chlamy pneumoniae PCR Adenovirus (PCR) B. pertussis DNA (PCR) B.parapertussis DNA PCR Coronavirus OC43 (PCR) Coronavirus HKU1 (PCR) Coronavirus 229E (PCR) Coronavirus NL63 (PCR) Human Metapneumovir PCR Influenza A (H1) PCR Influ A (H1/09) PCR Influenza A (H3) PCR Influenza Type A (PCR) Influenza Type B (PCR) M. pneumoniae (PCR) Parainfluenza 1 (PCR) Parainfluenza 2 (PCR) Parainfluenza 3 (PCR) Parainfluenza 4 (PCR) RSV (PCR) Entero/Rhino (PCR) SARS-CoV-2 (PCR) 05/17/25 05/16/25 05/16/25 05:26 20:29 16:20 WBC 9.6 RBC 3.64 L Hgb 10.7 L Hct 33.2 L MCV 91.2 MCH 29.4 MCHC 32.2 RDW 12.4 Plt Count 383 H MPV 9.4 Immature Gran % (Auto) 4.6 H Neut % (Auto) 62.3 Lymph % (Auto) 25.6 [place] % (Auto) 5.1 Eos % (Auto) 2.0 Baso % (Auto) 0.4 Lymph # (Auto) 2.46 [place] # (Auto) 0.5 Eos # (Auto) 0.2 Baso # (Auto) 0.0 Abs Immat Gran (auto) 0.44 H Absolute Neuts (auto) 6.0 Absolute Nucleated RBC 0.000 Nucleated RBC % 0.0 Sodium Potassium Chloride Carbon Dioxide Anion Gap BUN Creatinine Estim Creat Clear Calc Estimated GFR Glucose POC Capillary Glucose 260 H 237 H Calcium Magnesium Total Bilirubin AST ALT Alkaline Phosphatase Total Protein Albumin Chlamy pneumoniae PCR Adenovirus (PCR) B. pertussis DNA (PCR) B.parapertussis DNA PCR Coronavirus OC43 (PCR) Coronavirus HKU1 (PCR) Coronavirus 229E (PCR) Coronavirus NL63 (PCR) Human Metapneumovir PCR Influenza A (H1) PCR Influ A (H1/09) PCR Influenza A (H3) PCR Influenza Type A (PCR) Influenza Type B (PCR) M. pneumoniae (PCR) Parainfluenza 1 (PCR) Parainfluenza 2 (PCR) Parainfluenza 3 (PCR) Parainfluenza 4 (PCR) RSV (PCR) Entero/Rhino (PCR) SARS-CoV-2 (PCR) 05/15/25 05:56 WBC RBC Hgb Hct MCV MCH MCHC RDW Plt Count MPV Immature Gran % (Auto) Neut % (Auto) Lymph % (Auto) [place] % (Auto) Eos % (Auto) Baso % (Auto) Lymph # (Auto) [place] # (Auto) Eos # (Auto) Baso # (Auto) Abs Immat Gran (auto) Absolute Neuts (auto) Absolute Nucleated RBC Nucleated RBC % Sodium Potassium Chloride Carbon Dioxide Anion Gap BUN Creatinine Estim Creat Clear Calc Estimated GFR Glucose POC Capillary Glucose Calcium Magnesium Total Bilirubin AST ALT Alkaline Phosphatase Total Protein Albumin Chlamy pneumoniae PCR Not detected Adenovirus (PCR) Not detected B. pertussis DNA (PCR) Not detected B.parapertussis DNA PCR Not detected Coronavirus OC43 (PCR) Not detected Coronavirus HKU1 (PCR) Not detected Coronavirus 229E (PCR) Not detected Coronavirus NL63 (PCR) Not detected Human Metapneumovir PCR Not detected Influenza A (H1) PCR Not detected Influ A (H1/09) PCR Not detected Influenza A (H3) PCR Not detected Influenza Type A (PCR) Not detected Influenza Type B (PCR) Not detected M. pneumoniae (PCR) Not detected Parainfluenza 1 (PCR) Not detected Parainfluenza 2 (PCR) Not detected Parainfluenza 3 (PCR) Not detected Parainfluenza 4 (PCR) Not detected RSV (PCR) Not detected Entero/Rhino (PCR) Not detected SARS-CoV-2 (PCR) Not detected Imaging Radiologist's impression: ITS Impressions Chest X-Ray 05/10/25 08:16 Impression: 1: Pleural-based left posterior chest mass. Follow-up CT chest recommended with contrast for further characterization. Chest CT 05/10/25 10:32 IMPRESSION: 1. Mild emphysema with consolidation involving the majority of the left lower lobe without associated volume loss and with appearance most consistent with pneumonia. 2. Indeterminate 1.9 x 1.8 cm nodule in the left upper lobe which could represent additional pneumonia. Recommend 6-12 week follow-up following treatment to assess for resolution. Chest X-Ray 05/15/25 14:09 Impression: Left-sided posterior probable pneumonia. The findings appear improved compared to the previous study. Discharge Plan Discharge Attending physician on discharge: Jordi Dao Consulting providers: [place] Discharging Clinician: Jordi Dao Anticipated Discharge Date/Time: 05/17/25 13:54 Patient Disposition: Home Activity: as tolerated Diet: diabetic Patient Instructions: Antibiotic Form Patient Language: Vincentian Stand Alone Forms: General Discharge Information Follow-up/Referrals: Miroslava Larson MD [Primary Care Provider, [facility]] - 1 Week Discharge Medications: New guaifenesin [Mucus Relief ER] 600 mg Tablet Extended Release 12hr 600 mg PO Q12HR Qty: 20 0RF levofloxacin 750 mg tablet 750 mg PO DAILY Qty: 3 0RF Continued duloxetine 60 mg capsule,delayed release(DR/EC) 60 mg PO DAILY Qty: 90 3RF losartan-hydrochlorothiazide 50-12.5 mg tablet 1 tablet PO DAILY Qty: 90 3RF omeprazole 20 mg capsule,delayed release(DR/EC) 20 mg PO DAILY Qty: 90 3RF Januvia 100 mg tablet 100 mg PO DAILY alprazolam 0.25 mg tablet 0.25 mg PO QHS PRN (Reason: anxiety) Qty: 30 3RF valacyclovir 500 mg tablet See Rx Instructions PO .COMPLEX Qty: 60 3RF Patient Comments: takes it only as needed Rx Instructions: orally: per episode: 4 po bid x1 day Rybelsus 3 mg tablet 3 mg PO DAILY (DME) FreeStyle [place] 3 Plus Sensor Device See Rx Instructions .Route Qty: 6 3RF Rx Instructions: As directed metoprolol succinate 50 mg tablet extended release 24 hr 25 mg PO DAILY ezetimibe 10 mg tablet 10 mg PO DAILY Qty: 90 3RF pioglitazone [Actos] 30 mg tablet 30 mg PO DAILY Qty: 90 3RF Date of admission: 05/11/25 09:36 Primary Care Provider: Miroslava Larson Admitting Provider: Óscar Martinez Attending physician on admission: Óscar Martinez Condition: Improved
--- NOTE | 2025-05-21 13:33 | PCCDE ---
05/21/25: DM Educator courtesy follow up call attempted - Message left including call back number. Per chart: pt with PCP appt next week.
== END 2025-05-17 16:05 | disposition home or self-care (01) | DRG 871 ==
LOC: ANHED 10:54 → ANHIMU 14:19 → ANH3MEDSUR 05-11 22:56
PROVIDERS: Internal Medicine; Nurse Practitioner Adult Health; Admitting Provider General Practice; Emergency Provider Emergency Medicine; PCP Family Medicine; Visit Provider Internal Medicine
DX: A41.9 Sepsis, unspecified organism (principal); J18.9 Pneumonia, unspecified organism; E11.40 Type 2 diabetes mellitus with diabetic neuropathy, unspecified; I10 Essential (primary) hypertension; K21.9 Gastro-esophageal reflux disease without esophagitis; E78.5 Hyperlipidemia, unspecified; F32.A Depression, unspecified; F41.9 Anxiety disorder, unspecified; Z20.822 Contact with and (suspected) exposure to COVID-19; Z80.0 Family history of malignant neoplasm of digestive organs; Z87.891 Personal history of nicotine dependence
CPT/HCPCS: 0202U; 36415; 71045; 71046; 71260; 80048; 80053; 80069; 81001; 82948; 83036; 83605; 83735; 84100; 84145; 84439; 84443; 84480; 85025; 85027; 85610; 85652; 86140; 87040; 87449; 87637; 87641; 87899; 93005; 94640; 96361; 96365; 96367; 96375; 97110; 97161; 97166; 97530; 97535; 99285; A9270; G0378; J0456; J0696; J1644; J1815; J2405; J3373; J3475; J7050; J7120; Q9967